=== PATIENT | female | born 1955 | race Two or more races ===

== ENCOUNTER 2024-10-27 12:47 | Inpatient (IN) | payer OTHER, MEDICAID ==
[~2024-10-27] VITALS: Ht 154.9 cm; Wt 85.6 kg
[~2024-10-27 12:47] MED LIST: METH4PAK PO
--- NOTE | 2024-10-27 13:42 | ED.PDOC ---
Musculoskeletal HPI Comments HPI: Poor Historian. 69-year-old female presents to emergency department for evaluation of left lower extremity discomfort after wearing the compression stockings for the last few days. Patient is postoperative day three of right knee replacement however her complaint today is in the contralateral extremity. Patient has no complaints as far as her right lower extremity where the surgery was. Patient states that the compression stocking was causing her discomfort and she took it off prior to arrival. Past Medical History: Past Surgical History: REVIEW OF SYSTEMS: CONSTITUTIONAL: Denies acute: fever, diaphoresis, chills, generalized weakness. HEAD: Denies acute: headache, photophobia Eyes: Denies acute: Double vision, vision loss, eye pain, eye discharge. EARS: Denies acute: tinnitus, hearing loss, ear discharge, ear pain, THROAT: Denies acute: sore throat, swelling, difficulty swallowing , pain with swallowing, change in voice. NECK: Denies acute: neck pain, neck swelling, stiff neck. HEART: Denies acute : chest pain, palpitations, LUNGS: Denies acute: SOB, wheezing, cough, hemoptysis ABDOMEN: Denies acute: abdominal pain, Nausea, Vomiting, diarrhea, melena , hematemesis, hematochezia SKIN: Denies acute: rash, redness, lesions, itchiness. EXTREMITIES: Denies acute: calf pain, numbness, tingling, weakness, Denies acute: Low back pain. Neuro: Denies acute: focal neurological deficit, motor or sensory focal neurological de ficit, tremors, seizure like activity, confusion, dizziness, change in mental status, loss of bowel or bladder function, cauda equina like symptoms. : Denies acute: dysuria, hematuria, flank pain, increase in urinary frequency. PSYCH: Denies acute: hallucination, suicidal ideation, homicidal ideation. FEMALE: Denies acute: abnormal vaginal bleeding, foul odor, unusual discharge. PHYSICAL EXAM: General: --no------acute distress, awake and alert. Head: normocephalic, atraumatic. Neck: supple, trachea is midline, no swelling. Throat: Normal phonation. Eyes:, no erythema, no purulent discharge, no proptosis, no icterus. Heart: regular rate, regular rhythm, no significant murmur appreciated. Lungs: no apparent respiratory distress, Able to speak in full sentences. No wheezing, no rhonchi, no crackles. No stridors Clear to auscultation bilaterally. Abdomen: non tender to palpation, non distended, soft, no guarding, no rebound, + bowel sounds. Neuro: Awake, Alert, oriented to name, self, situation, follows commands GCS=15. Speech is normal. Skin: no petechia, no purpura, no cyanosis, non-pale, not jaundice. Evaluation of the affected left lower extremity --trace - Pitting edema no deformity, no focal swelling, no calf TTP. Mild generalized erythema. Makes eye contact. moves all four extremities. Face: no apparent facial droop. ED COURSE: DISCLAIMER: This medical document was created using an electronic medical record system with voice recognition software and computerized dictation system. Although this document has been carefully reviewed, there might still be some phonetic and typographical errors. Occasional wrong-word or "sound-alike" substitutions may have occurred due to the inherent limitations of voice recognition software. These areas are purely typographical due to imperfections of the software programs and do not reflect any compromise in the patient's medical care. Please read the chart carefully and recognize, using context, where these substitutions have occurred. 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 Reported Medications Citalopram Hydrobromide (Citalopram Hydrobromide) 10 Mg Tab, 1 TAB PO DAILY 10/27/24 Lisinopril (Lisinopril) 20 Mg Tab, 1 TAB PO DAILY 10/27/24 Atorvastatin Calcium (ATORVASTATIN CALCIUM) 80 Mg Tab, 1 TAB PO DAILY 10/27/24 Information Source: Patient Location: Left Social History Smoker: Non-Smoker Alcohol: Denies ETOH Use Drugs: Denies Drug Use X-Ray, Labs, Meds, VS Vital Signs Date Time Temp Pulse Resp B/P (MAP) Pulse Ox O2 Delivery O2 Flow Rate FiO2 10/27/24 14:55 86 16 92 Room Air* 0 21 10/27/24 14:54 99.4 86 16 112/70 (84) 92 99.4 10/27/24 14:50 99.2 89 15 104/57 (73) 95 99.2 Lab Test 10/27/24 14:02 Range/Units White Blood Count 12.9 H 4.4-10.8 10^3/uL Red Blood Count 4.52 4.0-5.20 10^6/uL Hemoglobin 12.5 12.2-16.2 g/dL Hematocrit 37.5 36.0-46.0 % Mean Corpuscular Volume 83.0 80.0-100.0 fL Mean Corpuscular Hemoglobin 27.6 L 28.0-32.0 pg Mean Corpuscular Hemoglobin Concent 33.3 32.0-36.0 g/dL Red Cell Distribution Width 13.7 11.8-14.3 % Platelet Count 284 140-450 10^3/uL Mean Platelet Volume 7.8 6.9-10.8 fL Neutrophils (%) (Auto) 85.7 H 37.0-80.0 % Lymphocytes (%) (Auto) 6.3 L 10.0-50.0 % Monocytes (%) (Auto) 7.6 0.0-12.0 % Eosinophils (%) (Auto) 0.3 0.0-7.0 % Basophils (%) (Auto) 0.1 0.0-2.0 % Neutrophils # (Auto) 11.1 H 1.6-8.6 10 ^3/uL Lymphocytes # (Auto) 0.8 0.4-5.4 10 ^3/uL Monocytes # (Auto) 1.0 0-1.3 10 ^3/uL Eosinophils # (Auto) 0 0-0.8 10 ^3/uL Basophils # (Auto) 0 0-0.2 10 ^3/uL Nucleated Red Blood Cells 0.2 % Erythrocyte Sedimentation Rate 67 H 0-20 mm/hr Prothrombin Time 11.1 9.3-11.8 sec Prothrombin Time INR 1.05 0.9-1.15 Activated Partial Thromboplast Time 25.6 24.5-34.5 SEC Sodium Level 138 136-145 mmol/L Potassium Level 4.7 3.5-5.1 mmol/L Chloride Level 101 98-107 mmol/L Carbon Dioxide Level 27 20-31 mmol/L Anion Gap 10 5-15 Blood Urea Nitrogen 19 9-23 mg/dL Creatinine 0.87 0.550-1.02 mg/dL Glomerular Filtration Rate Calc 71 >90 mL/min BUN/Creatinine Ratio 21.8 H 10.0-20.0 Serum Glucose 159 H 74-106 mg/dL Calcium Level 9.6 8.7-10.4 mg/dL Total Bilirubin 0.9 0.2-1.0 mg/dL Aspartate Amino Transferase (AST) 33 13-40 U/L Alanine Aminotransferase (ALT) 25 7-40 U/L Alkaline Phosphatase 52 46-116 U/L C-Reactive Protein High Sensitivity 8.54 H <1.0 mg/dL B-Type Natriuretic Peptide 17.44 0-100 pg/mL Total Protein 7.1 5.7-8.2 g/dL Albumin 4.6 3.2-4.8 g/dL Current Medications Medications (Trade) Dose Ordered Sig/Azalia Route Start Time Stop Time Status Last Admin Enoxaparin Sodium (Lovenox) 80 mg STAT ONCE SC 10/27/24 15:00 10/27/24 15:10 DC 10/27/24 15:24 [place] [id number] Ph: [phone] DIAGNOSTIC IMAGING Diagnostic Imaging Report : [id number] Signed PATIENT: ZEE ORDOÑEZ ACCT: [id number] UNIT: [id number] : 1955 LOC: ER ROOM / BED: / AGE / SEX: 69 / F ADM STATUS: REG ER SERVICE 1341 ORDERING PHYSICIAN: SHEREEN WINSLOW DO PROCEDURE(s): LLDVT - LT Lower DVT REASON: pain ORDER NUMBER(s): [id number], ACCESSION NUMBER(s): [id number] Clinical History: pain Comparison: None Technique: Duplex Doppler evaluation of the deep venous system of the left lower extremity from the common femoral vein to the popliteal vein including color Doppler and spectral/pulsed waveform analysis was performed. Findings: The common femoral vein demonstrates incomplete compressibility. There is compressibility/patency of the great saphenous vein at the proximal thigh. The femoral vein demonstrates incomplete compressibility. The deep femoral vein demonstrates incomplete compressibility.. The popliteal vein demonstrates incomplete compressibility. There is incomplete l compressibility at the tibioperoneal trunk. Impression: Extensive occlusive deep venous thrombosis extending from the left common femoral vein to the left posterior tibial vein. Critical Result: DVT Findings discussed with Dr. Winslow, at 10/27/2024 02:36 PM, and acknowledged receipt and understanding of the findings. ATED BY: SHAYAN ALMONTE MD DICTATED DATE/TIME: 10/27/24 1439 SIGNED BY: SHAYAN ALMONTE MD SIGNED DATE/TIME: 10/27/24 1439 CC: Departure 1 Departure Time of Disposition: 14:25 Impression: Primary Impression: DVT (deep venous thrombosis) Disposition: ADMITTED INPATIENT Admit to: [facility] Condition: Guarded Discharged With: Self I personally scribed for SHEREEN WINSLOW DO ([email or web address]) on 10/27/24 at 16:56. Electronically submitted by Erik Aragon ([email or web address]). I personally scribed for SHEREEN WINSLOW DO ([email or web address]) on 10/27/24 at 18:19. Electronically submitted by Deandra Grove ([facility]). SHEREEN WINSLOW DO Oct 27, 2024 13:42
[2024-10-27 14:39] LABS: Hematocrit 37.5 % (36.0-46.0); Hemoglobin 12.5 g/dL (12.2-16.2); Mean Corpuscular Hemoglobin 27.6 pg (28.0-32.0); Mean Corpuscular Volume 83.0 fL (80.0-100.0); Nucleated Red Blood Cells % 0.2 %
--- NOTE | 2024-10-27 14:40 | DVH ---
Clinical History: pain Comparison: None Technique: Duplex Doppler evaluation of the deep venous system of the left lower extremity from the common femor al vein to the popliteal vein including color Doppler and spectral/pulsed waveform analysis was perfo rmed. Findings: The common femoral vein demonstrates incomplete compressibility. There is compressibility/patency of the great saphenous vein at the proximal thigh. The femoral vein demonstrates incomplete compressibility. The deep femoral vein demonstrates incomplete compressibility.. The popliteal vein demonstrates incomplete compressibility. There is incomplete l compressibility at the tibioperoneal trunk. Impression: Extensive occlusive deep venous thrombosis extending from the left common femoral vein to the left po sterior tibial vein. Critical Result: DVT Findings discussed with Dr. Michelle, at 10/27/2024 02:36 PM, and acknowledged receipt and understanding of the findings.
[2024-10-27 14:54] LABS: Alanine Aminotransferase 25 U/L (7-40); Albumin 4.6 g/dL (3.2-4.8); Alkaline Phosphatase 52 U/L (46-116); Anion Gap 10 (5-15); BUN/Creatinine Ratio 21.8 (10.0-20.0); Bilirubin, Total 0.9 mg/dL (0.2-1.0); Blood Urea Nitrogen 19 mg/dL (9-23); Calcium 9.6 mg/dL (8.7-10.4); Carbon Dioxide 27 mmol/L (20-31); Chloride 101 mmol/L (98-107); Potassium 4.7 mmol/L (3.5-5.1); Sodium 138 mmol/L (136-145); Total Protein 7.1 g/dL (5.7-8.2)
[2024-10-27 14:55] VITALS: PULSE 86; RESP 16; O2SAT 92
[2024-10-27 14:55] LABS: Glucose 159 mg/dL (74-106)
[2024-10-27 15:11] LABS: INR 1.05 (0.9-1.15); Partial Thromboplastin Time 25.6 SEC (24.5-34.5); Prothrombin Time 11.1 sec (9.3-11.8)
[2024-10-27] MEDS: ENOXAPARIN SOD 100 MG/1 ML SYRINGE SC ONE (15:24)
[2024-10-27] MEDS ORDERED: ONDANSETRON HCL 4 MG/2 ML VIAL IV PRN (16:45)
[2024-10-27] MEDS ORDERED: DEXTROSE (50%) 50ML SYRG IV PRN (16:45)
[2024-10-27] MEDS ORDERED: ALBUTEROL SULF 2.5 MG/0.5ML(0.5%) NEB SOLN NEB PRN (16:45)
[2024-10-27] MEDS ORDERED: ACETAMINOPHEN 325 MG TAB PO PRN (16:45)
[2024-10-27] MEDS ORDERED: NITROGLYCERIN 0.4 MG SL TAB SL PRN (16:45)
[2024-10-27] MEDS ORDERED: MORPHINE SULFATE INJ 2 MG/ml SYRG IV PRN ×2 (16:45)
[2024-10-27] MEDS ORDERED: IPRATROPIUM BROM 0.5 MG/2.5ML INH SOL NEB PRN (16:45)
[2024-10-27] MEDS ORDERED: LISI20TA56 PO (16:46)
[2024-10-27] MEDS ORDERED: CITA10TA5 PO (16:46)
[2024-10-27] MEDS ORDERED: ATOR-47 PO (16:46)
--- NOTE | 2024-10-27 16:49 | DVHHP2 ---
History of Present Illness Reason for Visit: Left lower extremity discomfort History of Present Illness Patricia Cross is a 69-year-old female with past medical history of right knee replacement, hypertension, asthma, and hysterectomy presents to the ED with left lower extremity discomfort. Patient currently reports that there was no pain. She does report that she had a right knee replacement over at [facility] 4 days ago and still has the SONAR TECHNICIAN pump intact. Her right lower extremity is also wrapped with an Xavier wrap. Patient reports that she is compliant with her medications. Patient denies any chest pain, shortness of breath, fever, chills, lightheadedness, weakness, dizziness, urinary symptoms, abdominal pain, nausea, vomiting, diarrhea, recent travels, recent ingestion of spoiled food, or recent sick contacts. Cardiovascular: HTN Pulmonary: Asthma Past Surgical History: Hysterectomy, Other (Right knee replacement) Family History: None Smoke: No ALCOHOL: none Drugs: None Lives: with Family Domestic Violence: Neg Review of Systems Musculoskeletal: leg pain (Left lower extremity) Allergies: Coded Allergies: No Known Drug Allergy (Verified Allergy, Unknown, 07/26/23) Medications Current Medications Medications Dose Ordered Sig/Azalia Route Start Time Stop Time Status Last Admin Dose Admin Enoxaparin Sodium 80 mg Q12HR SC 10/27/24 22:00 UNV Acetaminophen/ Hydrocodone Bitart 1 tab Q4HP PRN PO 10/27/24 16:45 UNV Ondansetron HCl 4 mg Q4HP PRN IV 10/27/24 16:45 UNV Acetaminophen 650 mg Q6HP PRN PO 10/27/24 16:45 UNV Morphine Sulfate 2 mg Q4HPRN PRN IV 10/27/24 16:45 UNV Nitroglycerin 0.4 mg Q5MINP PRN SL 10/27/24 16:45 UNV Morphine Sulfate 2 mg Q30M PRN IV 10/27/24 16:45 UNV Exam Vital Signs Vital Signs Date Time Temp Pulse Resp B/P (MAP) Pulse Ox O2 Delivery O2 Flow Rate FiO2 10/27/24 14:55 86 16 92 Room Air* 0 21 10/27/24 14:54 99.4 112/70 (84) 99.4 General Appearance: Alert, Oriented X3, Cooperative, No acute distress HEENT: Atraumatic, PERRLA, EOMI, Mucous membr. moist/pink Respiratory: Clear to auscultation, Normal air movement Cardiovascular: Regular rate, Normal S1, Normal S2, No murmurs Abdominal: Normal bowel sounds, Soft Extremities: No clubbing, No cyanosis Neuro: Normal speech, Sensation intact, Other (Right lower extremity with SONAR TECHNICIAN pump status post right knee replacement 4 days ago) Psych/Mental Status: Mental status NL, Mood NL Labs/Xrays Labs Test 10/27/24 14:02 Range/Units White Blood Count 12.9 H 4.4-10.8 10^3/uL Red Blood Count 4.52 4.0-5.20 10^6/uL Hemoglobin 12.5 12.2-16.2 g/dL Hematocrit 37.5 36.0-46.0 % Mean Corpuscular Volume 83.0 80.0-100.0 fL Mean Corpuscular Hemoglobin 27.6 L 28.0-32.0 pg Mean Corpuscular Hemoglobin Concent 33.3 32.0-36.0 g/dL Red Cell Distribution Width 13.7 11.8-14.3 % Platelet Count 284 140-450 10^3/uL Mean Platelet Volume 7.8 6.9-10.8 fL Neutrophils (%) (Auto) 85.7 H 37.0-80.0 % Lymphocytes (%) (Auto) 6.3 L 10.0-50.0 % Monocytes (%) (Auto) 7.6 0.0-12.0 % Eosinophils (%) (Auto) 0.3 0.0-7.0 % Basophils (%) (Auto) 0.1 0.0-2.0 % Neutrophils # (Auto) 11.1 H 1.6-8.6 10 ^3/uL Lymphocytes # (Auto) 0.8 0.4-5.4 10 ^3/uL Monocytes # (Auto) 1.0 0-1.3 10 ^3/uL Eosinophils # (Auto) 0 0-0.8 10 ^3/uL Basophils # (Auto) 0 0-0.2 10 ^3/uL Nucleated Red Blood Cells 0.2 % Erythrocyte Sedimentation Rate 67 H 0-20 mm/hr Prothrombin Time 11.1 9.3-11.8 sec Prothrombin Time INR 1.05 0.9-1.15 Activated Partial Thromboplast Time 25.6 24.5-34.5 SEC Sodium Level 138 136-145 mmol/L Potassium Level 4.7 3.5-5.1 mmol/L Chloride Level 101 98-107 mmol/L Carbon Dioxide Level 27 20-31 mmol/L Anion Gap 10 5-15 Blood Urea Nitrogen 19 9-23 mg/dL Creatinine 0.87 0.550-1.02 mg/dL Glomerular Filtration Rate Calc 71 >90 mL/min BUN/Creatinine Ratio 21.8 H 10.0-20.0 Serum Glucose 159 H 74-106 mg/dL Calcium Level 9.6 8.7-10.4 mg/dL Total Bilirubin 0.9 0.2-1.0 mg/dL Aspartate Amino Transferase (AST) 33 13-40 U/L Alanine Aminotransferase (ALT) 25 7-40 U/L Alkaline Phosphatase 52 46-116 U/L C-Reactive Protein High Sensitivity 8.54 H <1.0 mg/dL B-Type Natriuretic Peptide 17.44 0-100 pg/mL Total Protein 7.1 5.7-8.2 g/dL Albumin 4.6 3.2-4.8 g/dL Clinical History: pain Comparison: None Technique: Duplex Doppler evaluation of the deep venous system of the left lower extremity from the common femoral vein to the popliteal vein including color Doppler and spectral/pulsed waveform analysis was performed. Findings: The common femoral vein demonstrates incomplete compressibility. There is compressibility/patency of the great saphenous vein at the proximal t high. The femoral vein demonstrates incomplete compressibility. The deep femoral vein demonstrates incomplete compressibility.. The popliteal vein demonstrates incomplete compressibility. There is incomplete l compressibility at the tibioperoneal trunk. Impression: Extensive occlusive deep venous thrombosis extending from the left common femoral vein to the left posterior tibial vein. Critical Result: DVT SEPSIS Sepsis Screen Date sepsis recognized/suspect: Oct 27, 2024 Time Sepsis recognized/suspect: 1452 Recent Procedure: Yes (RIGHT KNEE SURGERY X 3 DAYS AGO ) On Antibiotic Therapy: No Respiratory Rate >20: No Heart Rate >90: No Temp<36 C (96.8 F) or >38.3 C: No SBP <90 or MAP <65 mmHG: No New Acute Mental Status Change: No Is the patient on CPAP, BIPAP,: No Physician Orders House Piping Inspector (10/27/24 ) Lt Lower Dvt (10/27/24 13:41) * Radiologist Consult (10/27/24 14:52) Enoxaparin Sodium (Lovenox) (10/27/24 22:00) Admit (10/27/24 16:32) Allergies (10/27/24 16:32) Code Status (10/27/24 16:32) Hydrocodone-Acet 5/325mg Tab ([place] 32 (10/27/24 16:45) Ondansetron Hcl (Zofran) (10/27/24 16:45) Complete Blood Count (10/28/24 04:00) Comprehensive Metabolic Panel (10/28/24 04:00) Cardiac Diet-2gna,Lofat,Lochol (10/27/24 Dinner) Acetaminophen Tablet (Tylenol Tablet) (10/27/24 16:45) Morphine Sulfate Injection (10/27/24 16:45) Nitroglycerin Sublingual (Ntrostat Subli (10/27/24 16:45) Morphine Sulfate Injection (10/27/24 16:45) Stat Ekg For Chest Pain (10/27/24 16:32) Notify Md Of Changes From Base (10/27/24 16:32) Director Of Vendor Management For 24 Hours (10/27/24 16:32) Emergency Dysrhythmia Protocol (10/27/24 16:32) Rhythm Strips Once Every Shift (10/27/24 16:32) Oxygen By Nasal Cannula (10/27/24 16:32) Glucose Blood (Accu-Chek Comfort Curve T (10/27/24 17:00) Mild Sliding Scale (10/27/24 17:00) Dextrose 50% Syringe (10/27/24 16:45) Ceftriaxone Ivpb Rocephin (10/27/24 16:45) Vital Signs Date Time Temp Pulse Resp B/P (MAP) Pulse Ox O2 Delivery O2 Flow Rate FiO2 10/27/24 14:55 86 16 92 Room Air* 0 21 10/27/24 14:54 99.4 86 16 112/70 (84) 92 99.4 10/27/24 14:50 99.2 89 15 104/57 (73) 95 99.2 Laboratory Tests Test 10/27/24 14:02 White Blood Count 12.9 10^3/uL (4.4-10.8) H Medications Medications Dose Ordered Sig/Azalia Route Start Time Stop Time Status Last Admin Dose Admin Enoxaparin Sodium 80 mg STAT ONCE SC 10/27/24 15:00 10/27/24 15:10 DC 10/27/24 15:24 80 MG Assessment/Plan Assessment/Plan Assessment Left lower extremity discomfort likely due to extensive occlusive deep venous thrombosis extending from the left common femoral vein to the left posterior tibial vein Patient has SONAR TECHNICIAN pump and a right lower extremity status post knee replacement 4 days ago at [facility] Leukocytosis unclear etiology Elevated CRP Hyperglycemia History of hypertension History of asthma History of hysterectomy Plan Admit to med surge Therapeutic Lovenox IV antibiotics-ceftriaxone Hemoglobin A1c ISS and Accu-Cheks Antiemetics Pain management Duo nebs Diet Home medications reconciled DVT prophylaxis-Lovenox PUD prophylaxis-PPIs Discussed plan of care with patient [place] [id number] Preventive counseling healthy eating habits, physical activity, and regular checkups Plan discussed with: Patient My Orders Orders - MAURICIO DAVILA WATCH PARTS INSPECTOR Procedure Category Date Status Time Enoxaparin Sodium PHA 10/27/24 Logged (Lovenox) 22:00 Admit ADMIT 10/27/24 Transmitted 16:32 Allergies [facility] 10/27/24 In Process 16:32 Code Status CODE 10/27/24 Transmitted 16:32 Hydrocodone-Acet PHA 10/27/24 Logged 5/325mg Tab ([place] 16:45 Ondansetron Hcl PHA 10/27/24 Logged (Zofran) 16:45 Complete Blood Count LAB 10/28/24 Verified 04:00 Comprehensive LAB 10/28/24 Verified Metabolic Panel 04:00 Cardiac DIET 10/27/24 Transmitted Diet-2gna,Lofat,Lochol Dinner Acetaminophen Tablet PHA 10/27/24 Logged (Tylenol Tablet) 16:45 Morphine Sulfate PHA 10/27/24 Logged Injection 16:45 Nitroglycerin PHA 10/27/24 Logged Sublingual (Ntrostat 16:45 Morphine Sulfate PHA 10/27/24 Logged Injection 16:45 Stat Ekg For Chest [facility] 10/27/24 In Process Pain 16:32 Notify Of Changes [facility] 10/27/24 In Process From Base 16:32 Director Of Vendor Management For [facility] 10/27/24 In Process 24 Hours 16:32 Emergency Dysrhythmia [facility] 10/27/24 In Process Protocol 16:32 Rhythm Strips Once [facility] 10/27/24 In Process Every Shift 16:32 Oxygen By Nasal RT 10/27/24 Transmitted Cannula 16:32 Glucose Blood PHA 10/27/24 Verified (Accu-Chek Comfort 17:00 Mild Sliding Scale PHA 10/27/24 Verified 17:00 Dextrose 50% Syringe PHA 10/27/24 Verified 16:45 Ceftriaxone Ivpb PHA 10/27/24 Verified Rocephin 16:45 Date of Service: Oct 27, 2024 Billing Provider: MAURICIO DAVILA Common Visit Codes: [id number]-[id number] INP/OBS CARE (HIGH) Secondary Visit Codes: [id number] COUNSELING IND MAURICIO DAVILA Oct 27, 2024 16:49
[2024-10-27 16:51] VITALS: BP 112/70; PULSE 86; RESP 16; TEMP 99.4; O2SAT 92
[2024-10-27] MEDS: ACCU-CHEK COMFORT CURVE STRIP VI SCH (17:23)
[2024-10-27] MEDS: PANTOPRAZOLE 40 MG/10 ML VIAL INJ IV SCH (17:29)
[2024-10-27] MEDS: cefTRIAXone 1GM/50ML D5W 50 ML IV SCH (17:29)
[2024-10-27] MEDS: InsuLIN REG 1unit/0.01ml Soln (100units/ml) SC SCH (17:30)
[2024-10-27] MEDS: IOHEXOL 350 MG/ML 100ML IJ ONE ×2 (19:19→21:05)
[2024-10-27 21:09] VITALS: PULSE 100; RESP 14; O2SAT 96
[2024-10-27] MEDS: ENOXAPARIN SOD 80 MG/0.8ML SYRINGE SC SCH (21:50)
[2024-10-27 23:52] VITALS: BP 100/65; PULSE 66; RESP 18; TEMP 99.2; O2SAT 94; O2SAT 96
[2024-10-28] VITALS (8 sets, daily range): BP systolic 100–116; BP diastolic 59–71; PULSE 65–78; RESP 17–19; TEMP 98.3–99.2; O2SAT 92–96
[2024-10-28] MEDS: HYDROcodone-ACET 5/325MG TAB PO PRN (00:49)
--- NOTE | 2024-10-28 01:02 | DVH ---
Examination: CTACH CLINICAL INDICATION: R/O PE COMPARISON: None. CONTRAST USED: Intravenous. TECHNIQUE: Technique for this CT scan was done using principles of ALARA (As Low As Reasonably Achie vable). Multiplanar reconstructions were obtained. CT pulmonary angiogram has been performed by obtaining 5 mm axial sections at 1 mm collimation after intravenous injection of non-ionic contrast. Retrospective 3D reconstruction in MIP and MPR format winter s been performed. OBSERVATIONS: The right and left main pulmonary arteries are normal in origin, course and caliber. Both these vesse ls show good contrast opacification and measure approximately 2 cm in diameter each. The visualized descending and interlobar pulmonary arteries show normal contrast opacification. There is no obvious intraluminal filling defect observed. The trachea and the mainstem bronchi appear normal. No mediastinal lymph nodes seen. Both the lungs reveal no focal parenchymal abnormality and show normal aeration pattern. Borderline cardiomegaly is noted. Atherosclerotic calcification is seen in the aorta and the coronary vessels. No pericardial effusion. The pleural spaces are clear. Bony thorax is normal. IMPRESSION: No evidence of pulmonary thromboembolism is noted. Electronically Signed 10/28/2024 01:00 Wesley Dubose
[2024-10-28] MEDS ORDERED: GABA-1308 PO (01:58)
[2024-10-28] MEDS ORDERED: ZOFR4T PO (01:58)
[2024-10-28] MEDS ORDERED: ASPI-543 PO (01:58)
[2024-10-28] MEDS ORDERED: DOCU-94 PO (01:58)
[2024-10-28] MEDS ORDERED: CEPH500C PO (01:58)
[2024-10-28] MEDS ORDERED: PERCOT PO (01:58)
[2024-10-28] MEDS ORDERED: MECL-90 PO (02:10)
[2024-10-28 07:46] LABS: Hematocrit 32.2 % (36.0-46.0); Hemoglobin 11.0 g/dL (12.2-16.2); Mean Corpuscular Hemoglobin 28.2 pg (28.0-32.0); Mean Corpuscular Volume 82.6 fL (80.0-100.0); Nucleated Red Blood Cells % 0.0 %
[2024-10-28 08:19] LABS: Alanine Aminotransferase 22 U/L (7-40); Albumin 4.2 g/dL (3.2-4.8); Alkaline Phosphatase 47 U/L (46-116); Anion Gap 9 (5-15); BUN/Creatinine Ratio 27.4 (10.0-20.0); Bilirubin, Total 1.1 mg/dL (0.2-1.0); Blood Urea Nitrogen 17 mg/dL (9-23); Calcium 9.5 mg/dL (8.7-10.4); Carbon Dioxide 28 mmol/L (20-31); Chloride 101 mmol/L (98-107); Glucose 93 mg/dL (74-106); Sodium 138 mmol/L (136-145); Total Protein 6.9 g/dL (5.7-8.2)
[2024-10-28 08:24] LABS: Potassium 3.1 mmol/L (3.5-5.1)
[2024-10-28] MEDS: CITALOPRAM HYDROBR 20 MG TAB PO SCH (09:39)
[2024-10-28] MEDS: cefTRIAXone 1GM/50ML D5W 50 ML IV SCH (09:39)
[2024-10-28] MEDS: ATORVASTATIN 20 MG TAB PO SCH (09:39)
[2024-10-28] MEDS: LISINOPRIL 20 MG TAB PO SCH (09:40)
--- NOTE | 2024-10-28 15:12 | DVHPNRES ---
Progress Note Date Seen: Oct 28, 2024 Resident Creating Document: YSABEL CASTRO RESIDENT Medical Necessity Reason Pt with a Central, PICC or Fol: No Subjective Review of Systems 69-year-old female with past medical history of right knee replacement, hypertension, asthma, and hysterectomy presents to the ED with left lower extremity discomfort. Patient currently reports that there was no pain. She does report that she had a right knee replacement over at [facility] 4 days ago and still has the DIETETIC INTERN pump intact. Patient denies any chest pain, shortness of breath, fever, chills, lightheadedness, weakness, dizziness, urinary symptoms, abdominal pain, nausea, vomiting, diarrhea, recent travels. Objective vital signs Vital Sign Date Time Temp Pulse Resp B/P (MAP) Pulse Ox O2 Delivery O2 Flow Rate FiO2 10/28/24 12:59 98.4 65 19 116/65 (82) 92 98.4 10/28/24 08:00 Room Air* 0 21 Total Intake and Output 10/27/24 10/27/24 10/28/24 15:00 23:00 07:00 Intake Total 300 ml Balance 300 ml medications Current Medications Medications Dose Ordered Sig/Azalia Route Start Time Stop Time Status Last Admin Dose Admin Enoxaparin Sodium 80 mg Q12HR SC 10/27/24 22:00 10/28/24 09:40 80 MG Acetaminophen/ Hydrocodone Bitart 1 tab Q4HP PRN PO 10/27/24 16:45 10/28/24 09:40 1 TAB Acetaminophen 650 mg Q6HP PRN PO 10/27/24 16:45 Morphine Sulfate 2 mg Q4HPRN PRN IV 10/27/24 16:45 Nitroglycerin 0.4 mg Q5MINP PRN SL 10/27/24 16:45 Diagnostic Test (Pha) 1 strip ACHS 10/27/24 17:00 10/28/24 11:28 1 STRIP Insulin Human Regular ACHS SC 10/27/24 17:00 10/28/24 11:47 2 UNITS Dextrose 50 ml UD PRN IV 10/27/24 16:45 Albuterol 2.5 mg Q4HPRN PRN NEB 10/27/24 16:45 Ipratropium Bazine 0.5 mg Q4HPRN PRN NEB 10/27/24 16:45 Pantoprazole Sodium 40 mg DAILY IV 10/27/24 16:45 10/28/24 09:40 40 MG Lisinopril 20 mg DAILY PO 10/28/24 10:00 Atorvastatin Calcium 80 mg DAILY PO 10/28/24 10:00 10/28/24 09:39 80 MG Citalopram Hydrobromide 10 mg DAILY PO 10/28/24 10:00 10/28/24 09:39 10 MG Ceftriaxone Sodium 50 ml @ 100 mls/hr DAILY@09 IV 10/28/24 09:00 10/28/24 09:39 100 MLS/HR Examination GENERAL: Not in acute distress. HEENT: EOMI, Moist mucous membranes. No scleral icterus. No cervical lymphadenopathy. LUNGS: Clear to auscultation bilaterally. No accessory muscle use. CARDIOVASCULAR: Regular rate and rhythm. No murmur. No JVD. ABDOMEN: Soft, nontender and nondistended. No palpable masses. EXTREMITIES: Right lower extremity with DIETETIC INTERN pump status post right knee replacement 4 days ago, left lower extremitie is swollen and tender on thigh. SKIN: No rashes or lesions. Warm. NEUROLOGIC: Alert and oriented X3 laboratory and microbiology Laboratory Tests 10/28/24 05:11 Test 10/28/24 05:11 Range/Units Serum Glucose 93 74-106 mg/dL Problem List/Assessment/Plan Problem List/Assessment/Plan # Deep vein thrombosis (DVT) of left leg, provoked - continue Lovenox 80 mg SC b.i.d. - Continue monitoring for signs of pulmonary embolism # Post-operative right leg pain - Assess current pain management regimen - Consider adjusting analgesic medications as needed for adequate pain control # Hypercholesterolemia - continue atorvastatin - Discuss lifestyle modifications including diet and exercise # asthma without exacerbation - continue inhaler as needed # hypertension - antihypertensive medication as needed - monitor blood pressure # hypokalemia - replenished - monitor morning labs Goal of Care discussed with the pt for 24 minutes: Full Code Plan discussed with Dr. Saleem Plan discussed with: Patient Date of Service: Oct 28, 2024 Billing Provider: MAT SALEEM MD Common Visit Codes: [id number] INP/OBS CARE(HIGH) YSABEL CASTRO RESIDENT Oct 28, 2024 15:12 MAT SALEEM MD Oct 29, 2024 16:12
[2024-10-29 01:00] VITALS: BP 108/61; PULSE 69; RESP 17; TEMP 97.5; O2SAT 97
[2024-10-29 05:00] VITALS: BP 128/63; PULSE 62; RESP 17; TEMP 98; O2SAT 95
[2024-10-29 06:15] LABS: Hematocrit 34.2 % (36.0-46.0); Hemoglobin 11.4 g/dL (12.2-16.2); Mean Corpuscular Hemoglobin 27.7 pg (28.0-32.0); Mean Corpuscular Volume 82.9 fL (80.0-100.0); Nucleated Red Blood Cells % 0.0 %
[2024-10-29 06:27] LABS: Anion Gap 8 (5-15); Carbon Dioxide 30 mmol/L (20-31); Chloride 100 mmol/L (98-107); Potassium 3.8 mmol/L (3.5-5.1); Sodium 138 mmol/L (136-145)
[2024-10-29 06:28] LABS: Calcium 9.8 mg/dL (8.7-10.4)
[2024-10-29 06:33] LABS: BUN/Creatinine Ratio 24.6 (10.0-20.0); Blood Urea Nitrogen 15 mg/dL (9-23); Glucose 107 mg/dL (74-106)
[2024-10-29 07:51] VITALS: O2SAT 94
[2024-10-29 09:00] VITALS: BP 114/66; PULSE 62; RESP 16; TEMP 98.1; O2SAT 94
[2024-10-29 12:50] LABS: Urine Protein, UAD Negative (Negative)
[2024-10-29] MEDS ORDERED: APIX5TAB PO (13:06)
[2024-10-29] MEDS ORDERED: POLY335015 PO (13:07)
[2024-10-29 14:18] VITALS: BP 114/66; PULSE 62; RESP 16; TEMP 98.1; O2SAT 94
--- NOTE | 2024-10-29 15:51 | DVHDSRES ---
Discharge Summary Date of Admission Resident Creating Document: SACHA PARSONS RESIDENT Oct 27, 2024 at 16:32 Date of Discharge: Oct 29, 2024 Admitting Diagnosis Surgical wound on the rt knee. Wounds: # Acute deep vein thrombosis (DVT) of left leg, provoked Labs/Diagnostic Data: Laboratory Results Test 10/29/24 12:00 10/29/24 11:26 10/29/24 09:01 10/29/24 04:25 Urine Color Yellow (Yellow) Urine Clarity Clear (Clear) Urine pH 6.5 (5.0-9.0) Urine Specific [place] 1.027 (1.001-1.035) Urine Protein Negative (Negative) Urine Ketones Negative (Negative) Urine Blood 1+ /uL (Negative) Urine Nitrite Negative (Negative) Urine Bilirubin Negative (Negative) Urine Urobilinogen 2 mg/dL (Negative) Urine Leukocyte Esterase Negative /uL (Negative) Urine RBC 6 /hpf (0 - 4) Urine Microscopic WBC 1 /HPF (0-5) Urine Squamous Epithelial Cells Few /hpf (<5) Urine Bacteria None seen /hpf (None Seen) Urine Mucus Few (None Seen) Urine Glucose Normal mg/dL (Normal) POC Glucose 124 mg/dl (70-106) Hemoglobin A1c 6.2 % A1C (<5.7) White Blood Count 9.8 10^3/uL (4.4-10.8) Red Blood Count 4.13 10^6/uL (4.0-5.20) Hemoglobin 11.4 g/dL (12.2-16.2) Hematocrit 34.2 % (36.0-46.0) Mean Corpuscular Volume 82.9 fL (80.0-100.0) Mean Corpuscular Hemoglobin 27.7 pg (28.0-32.0) Mean Corpuscular Hemoglobin Concent 33.4 g/dL (32.0-36.0) Red Cell Distribution Width 14.0 % (11.8-14.3) Platelet Count 291 10^3/uL (140-450) Mean Platelet Volume 7.9 fL (6.9-10.8) Neutrophils (%) (Auto) 56.0 % (37.0-80.0) Lymphocytes (%) (Auto) 28.1 % (10.0-50.0) Monocytes (%) (Auto) 12.0 % (0.0-12.0) Eosinophils (%) (Auto) 3.4 % (0.0-7.0) Basophils (%) (Auto) 0.5 % (0.0-2.0) Neutrophils # (Auto) 5.5 10 ^3/uL (1.6-8.6) Lymphocytes # (Auto) 2.8 10 ^3/uL (0.4-5.4) Monocytes # (Auto) 1.2 10 ^3/uL (0-1.3) Eosinophils # (Auto) 0.3 10 ^3/uL (0-0.8) Basophils # (Auto) 0.1 10 ^3/uL (0-0.2) Nucleated Red Blood Cells 0.0 % Sodium Level 138 mmol/L (136-145) Potassium Level 3.8 mmol/L (3.5-5.1) Chloride Level 100 mmol/L (98-107) Carbon Dioxide Level 30 mmol/L (20-31) Anion Gap 8 (5-15) Blood Urea Nitrogen 15 mg/dL (9-23) Creatinine 0.61 mg/dL (0.550-1.02) Glomerular Filtration Rate Calc 96 mL/min (>90) BUN/Creatinine Ratio 24.6 (10.0-20.0) Serum Glucose 107 mg/dL (74-106) Calcium Level 9.8 mg/dL (8.7-10.4) Test 10/28/24 05:11 10/27/24 14:02 Total Bilirubin 1.1 mg/dL (0.2-1.0) Aspartate Amino Transferase (AST) 22 U/L (13-40) Alanine Aminotransferase (ALT) 22 U/L (7-40) Alkaline Phosphatase 47 U/L (46-116) Total Protein 6.9 g/dL (5.7-8.2) Albumin 4.2 g/dL (3.2-4.8) Erythrocyte Sedimentation Rate 67 mm/hr (0-20) Prothrombin Time 11.1 sec (9.3-11.8) Prothrombin Time INR 1.05 (0.9-1.15) Activated Partial Thromboplast Time 25.6 SEC (24.5-34.5) C-Reactive Protein High Sensitivity 8.54 mg/dL (<1.0) B-Type Natriuretic Peptide 17.44 pg/mL (0-100) Other Laboratory Tests 10/29/24 04:25 Brief Hx & Hospital Course: 69-year-old female with past medical history of right knee replacement, hypertension, asthma, and hysterectomy presents to the ED with left lower extremity discomfort. Patient currently reports that there was no pain. She does report that she had a right knee replacement over at [facility] 4 days ago and still has the DESKTOP SUPPORT CONSULTANT pump intact. Patient denies any chest pain, shortness of breath, fever, chills, lightheadedness, weakness, dizziness, urinary symptoms, abdominal pain, nausea, vomiting, diarrhea, recent travels. Hospital course: Patient was initially presented with left leg pain and swelling, status post right knee replacement 4 days ago. Venous scan of the lower extremity showed Extensive occlusive deep venous thrombosis extending from the left common femoral vein to the left posterior tibial vein. CT angiography ruled out the possibility of PE . The patient was treated with initially Lovenox SC 80 mg b.i.d. and later switched to Eliquis. Pain was controlled with DESKTOP SUPPORT CONSULTANT pump. The patient is Scottish-speaking and extensive discussion with the help of Scottish speaker RN with the patient regarding possible cause of venous thrombosis and also explained for continuation of anticoagulant for at least six-month. Patient is being discharged to home with Eliquis 10 mg b.i.d. for 7 days followed by 5 mg b.i.d. for six-month and advised to resume home medications. Patient was also advised to follow up with PCP in 1 week and Orthopedics in 1-2 weeks. Physical exam: GENERAL: Not in acute distress. HEENT: EOMI, Moist mucous membranes. No scleral icterus. No cervical lymphadenopathy. LUNGS: Clear to auscultation bilaterally. No accessory muscle use. CARDIOVASCULAR: Regular rate and rhythm. No murmur. No JVD. ABDOMEN: Soft, nontender and nondistended. No palpable masses. EXTREMITIES: Right lower extremity with DESKTOP SUPPORT CONSULTANT pump status post right knee replacement 4 days ago, left lower extremitie is swollen and tender on thigh. SKIN: No rashes or lesions. Warm. NEUROLOGIC: Alert and oriented X3 Consults/Reason for consult No consultation was done Operations or Procedures Duplex Doppler evaluation of the deep venous system of the left lower extremity from the common femoral vein to the popliteal vein including color Doppler and spectral/pulsed waveform analysis was performed. Findings: The common femoral vein demonstrates incomplete compressibility. There is compressibility/patency of the great saphenous vein at the proximal thigh. The femoral vein demonstrates incomplete compressibility. The deep femoral vein demonstrates incomplete compressibility.. The popliteal vein demonstrates incomplete compressibility. There is incomplete l compressibility at the tibioperoneal trunk. Impression: Extensive occlusive deep venous thrombosis extending from the left common femoral vein to the left posterior tibial vein. Condition at Discharge: Guarded Final Diagnosis/Problems List # Acute deep vein thrombosis (DVT) of left leg, provoked # S/P right knee arthroplasty # Hypercholesterolemia # Bronchial asthma without exacerbation # Hypertensive heart disease # Hypokalemia resolved Discharge Disposition: Home Discharge Instruct/Medications Diet: Cardiac 2g Na,low cholest Activity: No Restrictions, As Tolerated Follow Up/Referral: Follow up with DC clinic in 1 week. Follow up with Orthopedics in 1 to 2 weeks. Medications: As per EMR Scheduled Apixaban Base (Eliquis), 5 MG PO BID Apixaban Base (Eliquis), 10 MG PO BID Apixaban Base (Eliquis), 5 MG PO BID Apixaban Base (Eliquis), 10 MG PO BID Aspirin (Aspir-Low), 81 MG PO DAILY, (Reported) Atorvastatin Calcium (Atorvastatin Calcium), 1 TAB PO DAILY, (Reported) Citalopram Hydrobromide (Citalopram Hydrobromide), 1 TAB PO DAILY, (Reported) Docusate Sodium (Colace), 1 CAP PO BID, (Reported) Gabapentin (Gabapentin), 100 MG PO TID, (Reported) Lisinopril (Lisinopril), 1 TAB PO DAILY, (Reported) Meclizine Hcl (Meclizine Hcl), 25 MG PO DAILY, (Reported) Oxycodone W/ Acetaminophen (Percocet 5/325MG), 1 TAB PO QID, (Reported) Polyethylene Glycol 3350 (Miralax), 17 GM PO DAILY Discontinued Medications Cephalexin Monohydrate (Cephalexin), 500 MG PO Q6HR, (Reported) Ondansetron Odt 4MG Tab (Zofran Po), 4 MG PO TID, (Reported) Discharge Statement: "Patient was advised to return to the ER or call 911 if any headaches, dizziness, shortness of breath, chest pain, abdominal pain, bleeding, fevers, or worsening of medical condition. Patient was counseled about treatment plan, medications, possible side effects, patientverbalized understanding. All questions were answered to the best of my ability. This discharge took greater then 30 minutes in planning, reviewing documentation, counseling the patient, and discussing with other team members." ASSESSMENT ASSESSMENT Assessment Acute provoked DVT of left lower leg. Date of Service: Oct 29, 2024 Billing Provider: MAT SALEEM MD Common Visit Codes: 53679-YYI/[id number] DISCH DAY >30min SACHA PARSONS RESIDENT Oct 29, 2024 15:51 MAT SALEEM MD Oct 31, 2024 13:45
== END 2024-10-29 15:25 | disposition home or self-care (01) | DRG 301 ==
LOC: ER 12:47 → OVERFLOW 16:32 → WEST WING 23:37
DX: I82.412 Acute embolism and thrombosis of left femoral vein (principal); I82.442 Acute embolism and thrombosis of left tibial vein; D72.829 Elevated white blood cell count, unspecified; J45.909 Unspecified asthma, uncomplicated; E87.6 Hypokalemia; E78.00 Pure hypercholesterolemia, unspecified; I11.9 Hypertensive heart disease without heart failure; Z96.651 Presence of right artificial knee joint; Z90.710 Acquired absence of both cervix and uterus; Z79.899 Other long term (current) drug therapy
CPT/HCPCS: 36415; 71275; 80048; 80053; 81001; 82962; 83036; 83880; 85025; 85610; 85652; 85730; 86141; 93971; 96365; G0378; J1815; J2470

== ENCOUNTER 2024-12-13 12:07 | Inpatient (IN) | payer OTHER, MEDICAID ==
[~2024-12-13] VITALS: Ht 154.9 cm; Wt 74.2 kg
[~2024-12-13 12:07] MED LIST changes: +APIX5TAB PO; +ASPI-543 PO; +ATOR-47 PO; +CITA10TA5 PO; +DOCU-94 PO; +GABA-1308 PO; +LISI20TA56 PO; +MECL-90 PO; -METH4PAK PO; +PERCOT PO; +POLY335015 PO
--- NOTE | 2024-12-13 12:43 | ED.PDOC ---
Musculoskeletal HPI Comments This is a 69 year old female presenting to the ED with chief complaint of left leg swelling. Patient reports that she has been experiencing left leg pain and swelling since 10/27/24, however, it has gotten worse since onset. Patient relays that she was previously diagnosed with a DVT in her left leg and has still been on Eliquis and ASA. Patient denies any chest pain, SOB, dizziness, headache, or syncope. Chief Complaint: Lower Extremity Time Seen by MD: 12:40 Primary Care Provider: LAW Reviewed Notes: Nurses Notes, Medications, Allergies Allergies: Coded Allergies: No Known Drug Allergy (Verified Allergy, Unknown, 07/26/23) Home Meds Active Scripts Apixaban Base (ELIQUIS) 5 Mg Tab, 10 MG PO BID for 7 Days, #14 TAB 10MG BID X 7 DAYS THEN 5MG PO BID FOR AT LEAST 6 MONTHS FOR DVT/PE TREATMENT [facility] Apixaban Base (ELIQUIS) 5 Mg Tab, 5 MG PO BID for 90 Days, #180 TAB 3 [facility]ills [facility] 10/29/24 Polyethylene Glycol 3350 (Miralax) 17 Gm Pow, 17 GM PO DAILY for 7 Days, #450 POW Prov[facility] 10/29/24 Apixaban Base (ELIQUIS) 5 Mg Tab, 10 MG PO BID for 7 Days, #14 TAB 10MG BID X 7 DAYS THEN 5MG PO BID FOR AT LEAST 6 MONTHS FOR DVT/PE TREATMENT Prov[facility] 10/29/24 Apixaban Base (ELIQUIS) 5 Mg Tab, 5 MG PO BID for 60 Days, #120 TAB Prov:[facility] 10/29/24 Reported Medications Meclizine Hcl (Meclizine Hcl) 25 Mg Tab, 25 MG PO DAILY for 30 Days, MG 10/28/24 Aspirin (Aspir-Low) 81 Mg Tab, 81 MG PO DAILY for 30 Days, MG 10/28/24 Docusate Sodium (Colace) 100 Mg Cap, 1 CAP PO BID, #30 CAP 10/28/24 Gabapentin (Gabapentin) 100 Mg Cap, 100 MG PO TID 10/28/24 Oxycodone W/ Acetaminophen (Percocet 5/325MG) 1 Tab Tb, 1 TAB PO QID, #120 TAB 10/28/24 Citalopram Hydrobromide (Citalopram Hydrobromide) 10 Mg Tab, 1 TAB PO DAILY 10/27/24 Lisinopril (Lisinopril) 20 Mg Tab, 1 TAB PO DAILY 10/27/24 Atorvastatin Calcium (ATORVASTATIN CALCIUM) 80 Mg Tab, 1 TAB PO DAILY 10/27/24 Information Source: Patient Mode of Arrival: Ambulatory Location: Left Extremity Location: Leg Timing: Months Prehospital treatment: None Severity: Moderate Able to Move Extremity: Yes Bear Weight: Limited Pain: Moderate Mechanism: Spontaneous Circumstances: Spontaneous Onset of Symptoms: Spontaneous Symptoms: Swelling, Pain DVT Risk Factors: DVT Last Tetanus: Unknown Past Medical History Past Medical History (Other): DVT in left leg Surgical History: Denies all surgeries CAPITAL MARKETS SPECIALIST History: Denies all CAPITAL MARKETS SPECIALIST Hx Family History Family History: Reviewed,noncontributory to illness Social History Smoker: Non-Smoker Alcohol: Denies ETOH Use Drugs: Denies Drug Use Lives In: Home Constitutional: denies: chills, diaphoresis, fatigue, fever, malaise, sweats, weakness, others EENTM: denies: blurred vision, double vision, ear bleeding, ear discharge, ear drainage, ear pain, ear ringing, eye pain, eye redness, hearing loss, mouth pain, mouth swelling, nasal discharge, nose bleeding, nose congestion, nose pain, photophobia, tearing, throat pain, throat swelling, voice changes, others Respiratory: denies: cough, hemoptysis, orthopnea, SOB at rest, shortness of breath, SOB with excertion, stridor, wheezing, others Cardiovascular: reports: edema; denies: chest pain, dizzy spells, diaphoresis, Dyspnea on exertion, irregular heart beat, left arm pain, lightheadedness, palpitations, PND, syncope, others Gastrointestinal: denies: abdomen distended, abdominal pain, blood streaked bowels, constipated, diarrhea, dysphagia, difficulty swallowing, hematemesis, melena, nausea, poor appetite, poor fluid intake, rectal bleeding, rectal pain, vomiting, others Genitourinary: denies: abnormal vagina bleeding, burning, dyspareunia, dysuria, flank pain, frequency, hematuria, incontinence, pain, , vagina discharge, urgency, others Neurological: denies: dizziness, fainting, headache, left sided numbness, left sided weakness, numbness, paresthesia, pre-existing deficit, right sided numbness, right sided weakness, seizure, speech problems, tingling, tremors, weakness, others Musculoskeletal: reports: others (Lt leg pain); denies: back pain, gout, joint pain, joint swelling, muscle pain, muscle stiffness, neck pain Integumetry: denies: bruises, change in color, change in hair/nails, dryness, laceration, lesions, lumps, rash, wounds, others Allergic/Immunocompromised: denies: Difficulty Healing, Frequent Infections, Hives, Itching, others Hematologic/Lymphatic: denies: anemia, blood clots, easy bleeding, easy bruising, swollen glands, others Endocrine: denies: excessive hunger, excessive sweating, excessive thirst, excessive urination, flushing, intolerance to cold, intolerance to heat, unexplained weight gain, unexplained weight loss, others Psychiatric: denies: anxiety, bipolar disorder, depression, hopeless, panic disorder, schizophrenia, sleepless, suicidal, others All Other Systems: Reviewed and Negative Physical Exam General Appearance: Moderate Distress, Obese HEENT: Normal ENT Inspection, PERRL/EOMI, Pharynx Normal, TMs Normal Neck: Full Range of Motion, Non-Tender, Normal, Normal Inspection Respiratory: Chest Non-Tender, Lungs Clear, No Accessory Muscle Use, No Respiratory Distress, Normal Breath Sounds Cardiovascular: No Edema, No JVD, No Murmur, No Gallop, Normal Peripheral Pulses, Regular Rate/Rhythm Breast Exam: Deferred Gastrointestinal: No Organomegaly, Non Tender, No Pulsatile Mass, Normal Bowel Sounds, Soft Genitalia: Deferred Pelvic: Deferred Rectal: Deferred Extremities: Decreased range of motion, Inflammation, Leg edema, No calf tenderness, Normal capillary refill, Normal inspection, Normal range of motion, Non-tender, No pedal edema, Swelling, Tender Neurologic: Alert, product safety technician II-XII nml as Tested, No Motor Deficits, Normal Affect, Normal Mood, No Sensory Deficits Cerebellar Function: Normal Reflexes: Normal Skin: Dry, Normal Color, Warm Peripheral Pulses: 1+ carotid (R), 1+ carotid (L) Lymphatic: No Adenopathy Was a procedure done? Was a procedure done?: No Differential Diagnosis EXT Differential Diagnosis: Cellulitis, CHF, Deep Vein Thrombosis X-Ray, Labs, Meds, VS Vital Signs Date Time Temp Pulse Resp B/P (MAP) Pulse Ox O2 Delivery O2 Flow Rate FiO2 12/13/24 12:12 98.0 76 15 146/71 97 98.0 Lab Test 12/13/24 13:41 Range/Units White Blood Count 7.6 4.4-10.8 10^3/uL Red Blood Count 4.27 4.0-5.20 10^6/uL Hemoglobin 11.0 L 12.2-16.2 g/dL Hematocrit 34.0 L 36.0-46.0 % Mean Corpuscular Volume 79.6 L 80.0-100.0 fL Mean Corpuscular Hemoglobin 25.9 L 28.0-32.0 pg Mean Corpuscular Hemoglobin Concent 32.5 32.0-36.0 g/dL Red Cell Distribution Width 15.6 H 11.8-14.3 % Platelet Count 402 140-450 10^3/uL Mean Platelet Volume 7.6 6.9-10.8 fL Neutrophils (%) (Auto) 55.2 37.0-80.0 % Lymphocytes (%) (Auto) 29.7 10.0-50.0 % Monocytes (%) (Auto) 10.0 0.0-12.0 % Eosinophils (%) (Auto) 3.9 0.0-7.0 % Basophils (%) (Auto) 1.2 0.0-2.0 % Neutrophils # (Auto) 4.2 1.6-8.6 10 ^3/uL Lymphocytes # (Auto) 2.3 0.4-5.4 10 ^3/uL Monocytes # (Auto) 0.8 0-1.3 10 ^3/uL Eosinophils # (Auto) 0.3 0-0.8 10 ^3/uL Basophils # (Auto) 0.1 0-0.2 10 ^3/uL Nucleated Red Blood Cells 0.0 % Prothrombin Time 11.5 9.3-11.8 sec Prothrombin Time INR 1.09 0.9-1.15 Activated Partial Thromboplast Time 31.0 24.5-34.5 SEC D-Dimer, Quantitative 6.83 H 0.0-0.49 mg/L FEU Sodium Level 140 136-145 mmol/L Potassium Level 4.1 3.5-5.1 mmol/L Chloride Level 105 98-107 mmol/L Carbon Dioxide Level 27 20-31 mmol/L Anion Gap 8 5-15 Blood Urea Nitrogen 12 9-23 mg/dL Creatinine 0.64 0.550-1.02 mg/dL Glomerular Filtration Rate Calc 94 >90 mL/min BUN/Creatinine Ratio 18.8 10.0-20.0 Serum Glucose 93 74-106 mg/dL Calcium Level 9.4 8.7-10.4 mg/dL Total Bilirubin 0.5 0.2-1.0 mg/dL Aspartate Amino Transferase (AST) 20 13-40 U/L Alanine Aminotransferase (ALT) 13 7-40 U/L Alkaline Phosphatase 75 46-116 U/L Troponin I High Sensitivity < 3 L </=34 ng/L Total Protein 7.8 5.7-8.2 g/dL Albumin 4.4 3.2-4.8 g/dL Current Medications Medications (Trade) Dose Ordered Sig/Azalia Route Start Time Stop Time Status Last Admin Sodium Chloride 1,000 ml @ 150 mls/hr Q6H40M ONCE IV 12/13/24 12:45 12/13/24 19:24 12/13/24 12:45 [place] [address] Ph: [phone] DIAGNOSTIC IMAGING Diagnostic Imaging Report : [id number] Signed PATIENT: ZEE ORDOÑEZ ACCT: [id number] UNIT: [id number] : 1955 LOC: ER ROOM / BED: / AGE / SEX: 69 / F ADM STATUS: REG ER SERVICE 1240 ORDERING PHYSICIAN: GRETA CEDENO MD PROCEDURE(s): LLDVT - LT Lower DVT REASON: Swollen inflamed left leg history of DVT patient on Eliquis ORDER NUMBER(s): [id number], ACCESSION NUMBER(s): [id number] Left lower extremity venous duplex Clinical History: Swollen inflamed left leg history of DVT patient on Eliquis Comparison: US LT LOWER DVT on DOS: 10/27/24 Findings:The common femoral vein demonstrates incomplete compressibility. There is compressibility/patency of the great saphenous vein at the proximal thigh. The femoral vein demonstrates incomplete compressibility. The deep femoral vein demonstrates incomplete compressibility.. The popliteal vein demonstrates incomplete compressibility. There is incomplete l compressibility at the tibioperoneal trunk.Impression:Extensive occlusive deep venous thrombosis extending from the left common femoral vein to the left posterior tibial vein. No interval change. ATED BY: PETER ADLER MD DICTATED DATE/TIME: 12/13/24 1329 SIGNED BY: PETER ADLER MD SIGNED DATE/TIME: 12/13/24 1329 CC: X-Ray, Labs, Meds, VS Comment Course in the emergency department if eventful patient came in because of her left leg being swollen and red and inflamed and very painful Patient has a history of DVT and is on Eliquis at this time her blood pressure is 166/71 The chest x-ray is normal EKG shows normal sinus rhythm Ultrasound of the left leg shows extensive DVT CBC normal CMP negative INR 1.09 D-dimer very elevated at 6.83 Troponin less than three CT angio pending Patient will be admitted for further care Time of 1ST Reevaluation: 13:40 Reevaluation 1ST: Unchanged Patient Education/Counseling: Diagnosis, Treatment Family Education/Counseling: No Family Present Departure 1 Departure Time of Disposition: 15:19 Impression: Primary Impression: Left leg DVT Additional Impressions: D-dimer, elevated Pulmonary embolism Disposition: 50 HOSPICE/HOME Condition: Serious Critical Care Note Critical Care Time?: No Stability Stability form required: Yes Heart Score Heart Score: Heart Score Response (Comments) Value History Slightly Suspicious 0 EKG Normal 0 Age >65 2 Risk Factors 1 or 2 risk factors 1 Troponin Normal limit 0 Total 3 I personally scribed for GRETA CEDENO MD ([email or web address]) on 12/13/24 at 12:43. Electronically submitted by Ramin Titus ([email or web address]). I personally scribed for GRETA CEDENO MD ([email or web address]) on 12/13/24 at 14:10. Electronically submitted by Ramin Titus ([email or web address]). GRETA CEDENO MD Dec 13, 2024 12:43
[2024-12-13] MEDS: SODIUM CHLORIDE 0.9% 1,000 ML IV ONE (12:45)
--- NOTE | 2024-12-13 13:17 | DVH ---
EXAM: XY CHEST TWO VIEWS ROUTINE CLINICAL HISTORY: Shortness of breath COMPARISON: CT CT ANGIO CHEST CONTRAST on DOS: 10/27/24, XY CHEST TWO VIEWS ROUTINE on DOS: 07/26/23 TECHNIQUE: Frontal and lateral view of the chest was obtained FINDINGS: Lines and Tubes: None Lungs: No focal consolidation. Pleura: No effusion. No pneumothorax. Cardiomediastinal contours: Unremarkable Bones: No acute osseous abnormality. IMPRESSION: No acute cardiopulmonary disease.
--- NOTE | 2024-12-13 13:32 | DVH ---
Left lower extremity venous duplex Clinical History: Swollen inflamed left leg history of DVT patient on Eliquis Comparison: US LT LOWER DVT on DOS: 10/27/24 Findings:The common femoral vein demonstrates incomplete compressibility. There is compressibility/pa tency of the great saphenous vein at the proximal thigh. The femoral vein demonstrates incomplete com pressibility. The deep femoral vein demonstrates incomplete compressibility.. The popliteal vein demo nstrates incomplete compressibility. There is incomplete l compressibility at the tibioperoneal trunk .Impression:Extensive occlusive deep venous thrombosis extending from the left common femoral vein to the left posterior tibial vein. No interval change.
[2024-12-13 13:55] LABS: Nucleated Red Blood Cells % 0.0 %
[2024-12-13 13:57] LABS: Hematocrit 34.0 % (36.0-46.0); Hemoglobin 11.0 g/dL (12.2-16.2); Mean Corpuscular Hemoglobin 25.9 pg (28.0-32.0); Mean Corpuscular Volume 79.6 fL (80.0-100.0)
[2024-12-13 14:13] LABS: Alanine Aminotransferase 13 U/L (7-40); Alkaline Phosphatase 75 U/L (46-116); Anion Gap 8 (5-15); BUN/Creatinine Ratio 18.8 (10.0-20.0); Blood Urea Nitrogen 12 mg/dL (9-23); Calcium 9.4 mg/dL (8.7-10.4); Carbon Dioxide 27 mmol/L (20-31); Chloride 105 mmol/L (98-107); Glucose 93 mg/dL (74-106); Potassium 4.1 mmol/L (3.5-5.1); Sodium 140 mmol/L (136-145); Total Protein 7.8 g/dL (5.7-8.2)
[2024-12-13 14:14] LABS: Albumin 4.4 g/dL (3.2-4.8); Bilirubin, Total 0.5 mg/dL (0.2-1.0)
[2024-12-13 14:16] LABS: INR 1.09 (0.9-1.15); Partial Thromboplastin Time 31.0 SEC (24.5-34.5); Prothrombin Time 11.5 sec (9.3-11.8)
[2024-12-13] MEDS: IOHEXOL 350 MG/ML 100ML IJ ONE (14:50)
--- NOTE | 2024-12-13 15:16 | ECG ---
[facility] Test Date: 2024-12-13 Test Time: 15:15:16 Pat Name: ZEE ORDOÑEZ Department: ED Room: 0221 Gender: F Prosthodontist/Educator: telma : 1955 Requested By: GRETA CEDENO Order Number: [id number] Reading MD: Eduardo Arrieta Measurements Intervals [place] Rate: 63 P: 67 WI: 150 QRS: 0 QRSD: 139 T: 67 QT: 422 QTc: 433 Interpretive Statements Sinus rhythm Atrial premature complexes Nonspecific intraventricular conduction delay Electronically Signed On 12-14-2024 17:02:58 PDT by Eduardo Arrieta Please click the below link to view image of tracing.
--- NOTE | 2024-12-13 15:54 | DVH ---
INDICATION: PE TECHNIQUE: Multidetector CTA of the chest was performed of the chest with 100 cc of intravenous contr ast. PULMONARY ANGIOGRAPHY PROTOCOL was utilized using a bolus-tracking technique centered on the gregory n pulmonary artery. Axial, coronal and sagittal multiplanar and MIP reformats were performed. Radiation Dose Information: CT Dose: CTDI volume is 15.3 mGy. Dose-length product is 537.11 mGy*cm Omnipaque 350: 100 mL The dose indicators for CT are the volume Computed Tomography (CT) Dose Index (CTDIvol) and the Dose Length Product (DLP), and are measured in units of mGy and mGy-cm, respectively. These indicators are not patient dose, but values generated from the CT scanner acquisition factors. The report includes radiation exposure data for exposures received during this examination. Findings: Pulmonary artery: Normal caliber of the pulmonary artery. No large central or large segmental pulmo nary embolism. Lower neck: Normal thyroid. Lungs: No focal consolidation, pulmonary mass, or suspicious pulmonary nodule. Heart/Vascular Structures: Normal heart size. Normal caliber and enhancement of the aorta. Lymph Nodes: No adenopathy Pleura: No pleural effusion or significant pneumothorax. Musculoskeletal: No acute osseous abnormality. Dextroscoliosis thoracolumbar spine, apex T12-L1 Upper abdomen: Limited portions of the upper abdomen are unremarkable. Cholelithiasis IMPRESSION: 1. No pulmonary embolism. No findings of pulmonary artery hypertension 2. No pulmonary nodules or masses.
[2024-12-13] MEDS ORDERED: ONDANSETRON HCL 4 MG/2 ML VIAL IV PRN (19:30)
[2024-12-13] MEDS ORDERED: HEPARIN DRIP/D5W 100UNITS/ML 250 ML IV SCH (20:00)
[2024-12-13] MEDS: HEPARIN SODIUM (PORCINE) 5000 UNITS/ML 1ML VIAL IV ONE (20:00)
[2024-12-13 20:31] LABS: Hematocrit 35.2 % (36.0-46.0); Hemoglobin 11.6 g/dL (12.2-16.2); Mean Corpuscular Hemoglobin 26.1 pg (28.0-32.0); Mean Corpuscular Volume 79.4 fL (80.0-100.0); Nucleated Red Blood Cells % 0.1 %
[2024-12-13 21:23] LABS: INR 1.08 (0.9-1.15); Partial Thromboplastin Time 31.3 SEC (24.5-34.5); Prothrombin Time 11.4 sec (9.3-11.8)
[2024-12-13] MEDS ORDERED: ENOXAPARIN SOD 80 MG/0.8ML SYRINGE SC SCH (22:00)
--- NOTE | 2024-12-13 22:04 | DVHHP2 ---
History of Present Illness Reason for Visit: Left leg swelling History of Present Illness 69-year-old female presents for evaluation of left lower extremity swelling. Patient reports undergoing a right knee surgery on 10/23/2024. Patient was diagnosed with a DVT on 10/27/24 and placed on Eliquis. She states being compliant with her medication. She states over the past three days her leg has become more swollen and tender. Denies chest pain or shortness for breath. No other acute complaints reported. Past Medical History Dyslipidemia and DVT Past Surgical History Right knee surgery Family History Noncontributory Smoke: No ALCOHOL: none Drugs: None Lives: with Family Review of Systems Review of Systems Review of systems are currently negative otherwise addressed in HPI. Allergies: Coded Allergies: No Known Drug Allergy (Verified Allergy, Unknown, 07/26/23) Medications Current Medications Medications Dose Ordered Sig/Azalia Route Start Time Stop Time Status Last Admin Dose Admin Atorvastatin Calcium 40 mg HS PO 12/13/24 22:00 Acetaminophen/ Hydrocodone Bitart 1 tab Q4HP PRN PO 12/13/24 19:30 Ondansetron HCl 4 mg Q4HP PRN IV 12/13/24 19:30 Acetaminophen 650 mg Q6HP PRN PO 12/13/24 19:30 Heparin Sodium/ Dextrose 250 ml @ 14 mls/hr [id number] IV 12/13/24 20:00 Exam Vital Signs Vital Signs Date Time Temp Pulse Resp B/P (MAP) Pulse Ox O2 Delivery O2 Flow Rate FiO2 12/13/24 19:27 65 16 153/72 (99) 99 12/13/24 16:07 98.6 98.6 Exam Gen: 69-year-old female in mild distress Skin: Warm, dry, normal color and texture, no rash. HEENT: Normocephalic atraumatic, mucous membranes moist and pink. Neck: Cervical and supraclavicular nodes normal without enlargement, trachea is midline, thyroid gland is normal without masses. Pulmonary: Clear to auscultation and percussion bilaterally. Cardiac: Regular rate and rhythm. No murmur Abdomen: Soft, nontender, nondistended, bowel sounds present all 4 quadrants, no guarding, no rigidity, no organomegaly. Extremities: No cyanosis, clubbing, left lower extremity swelling with tenderness Neuro: Cranial nerves II through XII grossly intact, normal affect and speech, no focal motor deficits. Labs/Xrays ORDERING PHYSICIAN: GRETA CEDENO MD PROCEDURE(s): CXR2 - CHEST TWO VIEWS ROUTINE REASON: Shortness of breath ORDER NUMBER(s): [id number], ACCESSION NUMBER(s): [id number] EXAM: XY CHEST TWO VIEWS ROUTINE CLINICAL HISTORY: Shortness of breath COMPARISON: CT CT ANGIO CHEST CONTRAST on DOS: 10/27/24, XY CHEST TWO VIEWS ROUTINE on DOS: 07/26/23 TECHNIQUE: Frontal and lateral view of the chest was obtained FINDINGS: Lines and Tubes: None Lungs: No focal consolidation. Pleura: No effusion. No pneumothorax. Cardiomediastinal contours: Unremarkable Bones: No acute osseous abnormality. IMPRESSION: No acute cardiopulmonary disease. RING PHYSICIAN: GRETA CEDENO MD PROCEDURE(s): LLDVT - LT Lower DVT REASON: Swollen inflamed left leg history of DVT patient on Eliquis ORDER NUMBER(s): [id number], ACCESSION NUMBER(s): [id number] Left lower extremity venous duplex Clinical History: Swollen inflamed left leg history of DVT patient on Eliquis Comparison: US LT LOWER DVT on DOS: 10/27/24 Findings:The common femoral vein demonstrates incomplete compressibility. There is compressibility/patency of the great saphenous vein at the proximal thigh. The femoral vein demonstrates incomplete compressibility. The deep femoral vein demonstrates incomplete compressibility.. The popliteal vein demonstrates incomplete compressibility. There is incomplete l compressibility at the tibioperoneal trunk.Impression:Extensive occlusive deep venous thrombosis extending from the left common femoral vein to the left posterior tibial vein. No interval change. RING PHYSICIAN: GRETA CEDENO MD PROCEDURE(s): CTACH - CT ANGIO CHEST CONTRAST REASON: PE ORDER NUMBER(s): [id number], ACCESSION NUMBER(s): [id number] INDICATION: PE TECHNIQUE: Multidetector CTA of the chest was performed of the chest with 100 cc of intravenous contrast. PULMONARY ANGIOGRAPHY PROTOCOL was utilized using a bolus-tracking technique centered on the main pulmonary artery. Axial, coronal and sagittal multiplanar and MIP reformats were performed. Radiation Dose Information: CT Dose: CTDI volume is 15.3 mGy. Dose-length product is 537.11 mGy*cm Omnipaque 350: 100 mL The dose indicators for CT are the volume Computed Tomography (CT) Dose Index (CTDIvol) and the Dose Length Product (DLP), and are measured in units of mGy and mGy-cm, respectively. These indicators are not patient dose, but values g enerated from the CT scanner acquisition factors. The report includes radiation exposure data for exposures received during this examination. Findings: Pulmonary artery: Normal caliber of the pulmonary artery. No large central or large segmental pulmonary embolism. Lower neck: Normal thyroid. Lungs: No focal consolidation, pulmonary mass, or suspicious pulmonary nodule. Heart/Vascular Structures: Normal heart size. Normal caliber and enhancement of the aorta. Lymph Nodes: No adenopathy Pleura: No pleural effusion or significant pneumothorax. Musculoskeletal: No acute osseous abnormality. Dextroscoliosis thoracolumbar spi ne, apex T12-L1 Upper abdomen: Limited portions of the upper abdomen are unremarkable. Cholelithiasis IMPRESSION: 1. No pulmonary embolism. No findings of pulmonary artery hypertension 2. No pulmonary nodules or masses. Labs Test 12/13/24 20:02 12/13/24 13:41 Range/Units White Blood Count 7.0 4.4-10.8 10^3/uL Red Blood Count 4.43 4.0-5.20 10^6/uL Hemoglobin 11.6 L 12.2-16.2 g/dL Hematocrit 35.2 L 36.0-46.0 % Mean Corpuscular Volume 79.4 L 80.0-100.0 fL Mean Corpuscular Hemoglobin 26.1 L 28.0-32.0 pg Mean Corpuscular Hemoglobin Concent 32.9 32.0-36.0 g/dL Red Cell Distribution Width 16.0 H 11.8-14.3 % Platelet Count 411 140-450 10^3/uL Mean Platelet Volume 7.7 6.9-10.8 fL Neutrophils (%) (Auto) 47.8 37.0-80.0 % Lymphocytes (%) (Auto) 35.7 10.0-50.0 % Monocytes (%) (Auto) 10.5 0.0-12.0 % Eosinophils (%) (Auto) 4.8 0.0-7.0 % Basophils (%) (Auto) 1.2 0.0-2.0 % Neutrophils # (Auto) 3.3 1.6-8.6 10 ^3/uL Lymphocytes # (Auto) 2.5 0.4-5.4 10 ^3/uL Monocytes # (Auto) 0.7 0-1.3 10 ^3/uL Eosinophils # (Auto) 0.3 0-0.8 10 ^3/uL Basophils # (Auto) 0.1 0-0.2 10 ^3/uL Nucleated Red Blood Cells 0.1 % Prothrombin Time 11.4 9.3-11.8 sec Prothrombin Time INR 1.08 0.9-1.15 Activated Partial Thromboplast Time 31.3 24.5-34.5 SEC D-Dimer, Quantitative 6.83 H 0.0-0.49 mg/L FEU Sodium Level 140 136-145 mmol/L Potassium Level 4.1 3.5-5.1 mmol/L Chloride Level 105 98-107 mmol/L Carbon Dioxide Level 27 20-31 mmol/L Anion Gap 8 5-15 Blood Urea Nitrogen 12 9-23 mg/dL Creatinine 0.64 0.550-1.02 mg/dL Glomerular Filtration Rate Calc 94 >90 mL/min BUN/Creatinine Ratio 18.8 10.0-20.0 Serum Glucose 93 74-106 mg/dL Calcium Level 9.4 8.7-10.4 mg/dL Total Bilirubin 0.5 0.2-1.0 mg/dL Aspartate Amino Transferase (AST) 20 13-40 U/L Alanine Aminotransferase (ALT) 13 7-40 U/L Alkaline Phosphatase 75 46-116 U/L Troponin I High Sensitivity < 3 L </=34 ng/L Total Protein 7.8 5.7-8.2 g/dL Albumin 4.4 3.2-4.8 g/dL SEPSIS Sepsis Screen Date sepsis recognized/suspect: Dec 13, 2024 Time Sepsis recognized/suspect: 1214 Recent Procedure: No On Antibiotic Therapy: No Respiratory Rate >20: No Heart Rate >90: No Temp<36 C (96.8 F) or >38.3 C: No SBP <90 or MAP <65 mmHG: No New Acute Mental Status Change: No Is the patient on CPAP, BIPAP,: No Physician Orders Ct Angio Chest Contrast (12/13/24 14:30) Basic Metabolic Panel (12/14/24 04:00) * Radiologist Consult (12/13/24 19:24) Admit (12/13/24 19:24) Hydrocodone-Acet 5/325mg Tab ([place] 5/32 (12/13/24 19:30) Ondansetron Hcl (Zofran) (12/13/24 19:30) Cardiac Diet-2gna,Lofat,Lochol (12/14/24 Breakfast) Condition: Stable (12/13/24 19:24) Acetaminophen Tablet (Tylenol Tablet) (12/13/24 19:30) Bedrest With Bathroom Privileg (12/13/24 19:24) Atorvastatin (Lipitor) (12/13/24 22:00) Platelet Monitoring (12/13/24 19:52) Vte Protocol Initiated (12/13/24 19:52) Heparin Per Standardized Proce (12/13/24 19:52) Discontinue All Im Injections (12/13/24 19:52) Heparin Drip/D5w 100units/Ml (12/13/24 20:00) Vital Signs Date Time Temp Pulse Resp B/P (MAP) Pulse Ox O2 Delivery O2 Flow Rate FiO2 12/13/24 19:27 65 16 153/72 (99) 99 12/13/24 16:07 98.6 72 16 137/72 (93) 99 98.6 12/13/24 15:15 63 Laboratory Tests Test 12/13/24 13:41 12/13/24 20:02 White Blood Count 7.6 10^3/uL (4.4-10.8) 7.0 10^3/uL (4.4-10.8) Medications Medications Dose Ordered Sig/Azalia Route Start Time Stop Time Status Last Admin Dose Admin Sodium Chloride 1,000 ml @ 150 mls/hr [id number] ONCE IV 12/13/24 12:45 12/13/24 19:24 DC 12/13/24 12:45 150 MLS/HR Assessment/Plan Assessment/Plan Assessment Left lower extremity DVT Plan Admit the patient to [facility] to the hospitalist Heparin drip Radiology consult Pain management Continue treatment per orders. Plan discussed with: Patient My Orders Orders - SANJUANITA MARSHALL Procedure Category Date Status Time Basic Metabolic Panel LAB 12/14/24 Verified 04:00 * Radiologist Consult CONS 12/13/24 Transmitted 19:24 Admit ADMIT 12/13/24 Transmitted 19:24 Hydrocodone-Acet PHA 12/13/24 In Process 5/325mg Tab ([place] 19:30 Ondansetron Hcl PHA 12/13/24 In Process (Zofran) 19:30 Cardiac DIET 12/14/24 Transmitted Diet-2gna,Lofat,Lochol Breakfast Condition: Stable SEGUNDO 12/13/24 In Process 19:24 Acetaminophen Tablet PHA 12/13/24 In Process (Tylenol Tablet) 19:30 Bedrest With Bathroom SEGUNDO 12/13/24 In Process Privileg 19:24 Atorvastatin (Lipitor) PHA 12/13/24 In Process 22:00 Platelet Monitoring SEGUNDO 12/13/24 In Process 19:52 Vte Protocol Initiated SEGUNDO 12/13/24 In Process 19:52 Heparin Per SEGUNDO 12/13/24 In Process Standardized Proce 19:52 Discontinue All Im SEGUNDO 12/13/24 In Process Injections 19:52 Heparin Drip/D5w PHA 12/13/24 In Process 100units/Ml 20:00 Date of Service: Dec 13, 2024 Billing Provider: SANJUANITA MARSHALL Common Visit Codes: [id number] INP/OBS CARE (HIGH) SANJUANITA MARSHALL Dec 13, 2024 22:04
[2024-12-13] MEDS: HEPARIN DRIP/D5W 100UNITS/ML 250 ML IV SCH (23:46)
[2024-12-13] MEDS: ATORVASTATIN 20 MG TAB PO SCH (23:50)
[2024-12-13] MEDS: HYDROcodone-ACET 5/325MG TAB PO PRN (23:53)
[2024-12-13 23:56] VITALS: RESP 12; O2SAT 96
[2024-12-14] VITALS (8 sets, daily range): BP systolic 114–134; BP diastolic 66–82; PULSE 60–73; RESP 16–18; TEMP 98–98.3; O2SAT 94–96
[2024-12-14 06:26] LABS: Chloride 106 mmol/L (98-107); Potassium 3.8 mmol/L (3.5-5.1); Sodium 141 mmol/L (136-145)
[2024-12-14 06:27] LABS: Anion Gap 9 (5-15); Calcium 8.9 mg/dL (8.7-10.4); Carbon Dioxide 26 mmol/L (20-31)
[2024-12-14 06:32] LABS: BUN/Creatinine Ratio 13.3 (10.0-20.0); Glucose 89 mg/dL (74-106)
[2024-12-14 06:33] LABS: Blood Urea Nitrogen 8 mg/dL (9-23)
[2024-12-14 06:48] LABS: INR 1.11 (0.9-1.15); Partial Thromboplastin Time 57.2 SEC (24.5-34.5); Prothrombin Time 11.6 sec (9.3-11.8)
[2024-12-14 12:02] LABS: INR 1.09 (0.9-1.15); Partial Thromboplastin Time 59.8 SEC (24.5-34.5); Prothrombin Time 11.5 sec (9.3-11.8)
--- NOTE | 2024-12-14 12:08 | CONS ---
Pharmacy Clinical Information: HEPARIN DRIP, DVT PROTOCOL @1117 APTT 59.8 - NO BOLUS / NO CHANGE NEXT APTT DRAW SCHEDULED @1700 PER RX PROTOCOL CONFIRMED AND READ BACK WITH RN JOHN TERRAZAS [facility] RESIDENT Dec 14, 2024 12:08
--- NOTE | 2024-12-14 12:38 | DVHPN2 ---
Reviewed: Care Plan, H&P, Labs, Medications, Previous Orders, Radiology Changes from previous H/P or p: No Changes Objective Vitals Vital Signs Date Time Temp Pulse Resp B/P (MAP) Pulse Ox O2 Delivery O2 Flow Rate FiO2 12/14/24 08:39 98.0 60 16 114/79 (91) 96 98.0 12/14/24 08:07 Room Air* 0 21 Intake/Output Intake and Output 12/14/24 07:00 Intake Total 20 ml Output Total 0 ml Balance 20 ml Intake Oral 20 ml Output Urine Total 0 ml Medications Current Medications Medications Dose Ordered Sig/Azalia Route Start Time Stop Time Status Last Admin Dose Admin Atorvastatin Calcium 40 mg HS PO 12/13/24 22:00 12/13/24 23:50 40 MG Acetaminophen/ Hydrocodone Bitart 1 tab Q4HP PRN PO 12/13/24 19:30 12/13/24 23:53 1 TAB Ondansetron HCl 4 mg Q4HP PRN IV 12/13/24 19:30 Acetaminophen 650 mg Q6HP PRN PO 12/13/24 19:30 Heparin Sodium/ Dextrose 250 ml @ 14 mls/hr [id number] IV 12/13/24 22:00 12/13/24 23:46 14 MLS/HR Laboratory Results Laboratory Tests 12/13/24 20:02 12/14/24 05:19 Chemistry Test 12/13/24 13:41 12/14/24 05:19 Albumin 4.4 g/dL (3.2-4.8) Calcium Level 9.4 mg/dL (8.7-10.4) 8.9 mg/dL (8.7-10.4) Total Protein 7.8 g/dL (5.7-8.2) Coagulation Test 12/13/24 13:41 12/13/24 20:02 12/14/24 05:19 12/14/24 11:14 Prothrombin Time 11.5 sec (9.3-11.8) 11.4 sec (9.3-11.8) 11.6 sec (9.3-11.8) 11.5 sec (9.3-11.8) Prothrombin Time INR 1.09 (0.9-1.15) 1.08 (0.9-1.15) 1.11 (0.9-1.15) 1.09 (0.9-1.15) Activated Partial Thromboplast Time 31.0 SEC (24.5-34.5) 31.3 SEC (24.5-34.5) 57.2 SEC (24.5-34.5) H 59.8 SEC (24.5-34.5) H D-Dimer, Quantitative 6.83 mg/L FEU (0.0-0.49) H LFT Test 12/13/24 13:41 Alanine Aminotransferase (ALT) 13 U/L (7-40) Alkaline Phosphatase 75 U/L (46-116) Aspartate Amino Transferase (AST) 20 U/L (13-40) Total Bilirubin 0.5 mg/dL (0.2-1.0) Labs and/or images reviewed: Labs reviewed by me, Image(s) reviewed by me Assessment/Plan Assessment/Plan # Acute deep vein thrombosis (DVT) of left leg, heparin drip per protocol cardiology consult for Dr. Vazquez and Radiology consult for possible thrombectomy # S/P right knee arthroplasty # Hypercholesterolemia # Bronchial asthma without exacerbation # Hypertensive heart disease Plan discussed with: Patient Date of Service: Dec 14, 2024 Billing Provider: JULIA BELLO MD Common Visit Codes: [id number] INP/OBS CARE(HIGH) JULIA BELLO MD Dec 14, 2024 12:38
[2024-12-14] MEDS: IOHEXOL 300 MG/ML 100ML BOTTLE IJ ONE (12:47)
--- NOTE | 2024-12-14 13:51 | DVH ---
Indication: eval dvt Technique: CT axial images of the pelvis are obtained with intravenous contrast. Coronal and sagitta l reformats were obtained. Radiation Dose Information: CTDI volume is 9.07 mGy. Dose-length product is 3.92 mGy*cm Comparison: 12/13/2024 FINDINGS: Insufficient opacification of the veins to evaluate for DVT. Cholelithiasis. Imaged small bowel loops normal in caliber. Moderate volume stool in the colon. [place] marlin diverticula. Abdominal aortic atherosclerotic disease. Bladder partially distended. No free pelv ic fluid. Insufficient contrast opacification IVC and veins to evaluate for DVT. There is thrombus within the l eft common femoral vein extending into the left superficial femoral vein. There is narrowing of the l eft common iliac vein proximally. There is inflammatory stranding surrounding the left common iliac, external iliac veins best seen on the coronal sequences. Numerous inguinal region collaterals consistent with history of deep vein thrombosis. There is extensive left lower extremity soft tissue edema / stranding and asymmetrical enlargement Left inguinal lymphadenopathy measuring up to 1.7 cm. IMPRESSION: Insufficient opacification of the veins to evaluate degree of DVT. Recommend dedicated CT venogram o f the abdomen / pelvis to fully characterize. Deep vein thrombosis within the left common femoral vein extending into the left superficial femoral vein. Suspected deep vein thrombosis of the left common, external iliac veins. Extensive left lower extremity soft tissue edema and stranding with asymmetrical enlargement compared to the contralateral right extremity Narrowing of the left common iliac vein proximally. Correlate for May Ye[place] syndrome. Left inguinal lymphadenopathy. Atherosclerotic disease. Colonic diverticular disease. Cholelithiasis.
--- NOTE | 2024-12-14 15:49 | DVHINCON2 ---
Date Seen: Dec 14, 2024 Referring Physician MD Juan Reason for Consultation Extensive DVT of the left lower extremity History of Present Illness This is a Greenlandic-speaking 69-year-old female patient who presents to the emergency room with chief complaint of worsening pain and edema to left lower extremity. The patient was diagnosed with an extensive occlusive deep venous thrombus in October 2024 at this facility. She was sent home on anticoagulation. The patient states that a few days prior to this admission, she began to notice an increase in swelling in her left lower extremity with pain to her left leg. This prompted her to come to the emergency room for further evaluation. A repeat ultrasound revealed an extensive occlusive deep venous thrombus extending from the left common femoral vein to the left posterior tibial vein. CT angiography negative for pulmonary embolism. Cardiology was consulted for possible mechanical thrombectomy. Initial twelve lead electrocardiogram reviewed and revealed normal sinus rhythm without any ST segment changes. Initial troponin level was negative and the patient denies any cardiac symptoms. Significant past medical history includes hypertension, dyslipidemia, asthma, and left lower extremity DVT (on Eliquis). Past Medical History Past medical history reviewed. No other significant than mentioned above. Past Surgical History Right knee replacement Hysterectomy Family History: Patient reports no known family medical history. Family History Family history reviewed. Social History Denies the use of tobacco, alcohol or illicit drugs. Allergies: Coded Allergies: No Known Drug Allergy (Verified Allergy, Unknown, 07/26/23) Home Meds Active Scripts Apixaban Base (ELIQUIS) 5 Mg Tab, 10 MG PO BID for 7 Days, #14 TAB 10MG BID X 7 DAYS THEN 5MG PO BID FOR AT LEAST 6 MONTHS FOR DVT/PE TREATMENT Prov:SACHA PARSONS RESIDENT 10/29/24 Apixaban Base (ELIQUIS) 5 Mg Tab, 5 MG PO BID for 90 Days, #180 TAB 3 Refills Prov:SACHA PARSONS [facility] 10/29/24 Polyethylene Glycol 3350 (Miralax) 17 Gm Pow, 17 GM PO DAILY for 7 Days, #450 POW Prov:MARILUZ PARSONSRA [facility] 10/29/24 Apixaban Base (ELIQUIS) 5 Mg Tab, 10 MG PO BID for 7 Days, #14 TAB 10MG BID X 7 DAYS THEN 5MG PO BID FOR AT LEAST 6 MONTHS FOR DVT/PE TREATMENT Prov:MARILUZ PARSOSNRA [facility] 10/29/24 Apixaban Base (ELIQUIS) 5 Mg Tab, 5 MG PO BID for 60 Days, #120 TAB Prov:HUSSAINSACHA MUNOZ RESIDENT 10/29/24 Reported Medications Meclizine Hcl (Meclizine Hcl) 25 Mg Tab, 25 MG PO DAILY for 30 Days, MG 10/28/24 Aspirin (Aspir-Low) 81 Mg Tab, 81 MG PO DAILY for 30 Days, MG 10/28/24 Docusate Sodium (Colace) 100 Mg Cap, 1 CAP PO BID, #30 CAP 10/28/24 Gabapentin (Gabapentin) 100 Mg Cap, 100 MG PO TID 10/28/24 Oxycodone W/ Acetaminophen (Percocet 5/325MG) 1 Tab Tb, 1 TAB PO QID, #120 TAB 10/28/24 Citalopram Hydrobromide (Citalopram Hydrobromide) 10 Mg Tab, 1 TAB PO DAILY 10/27/24 Lisinopril (Lisinopril) 20 Mg Tab, 1 TAB PO DAILY 10/27/24 Atorvastatin Calcium (ATORVASTATIN CALCIUM) 80 Mg Tab, 1 TAB PO DAILY 10/27/24 Home Meds Home medications reviewed. Current Medications Current Medications Medications (Trade) Dose Ordered Sig/Azalia Route PRN Reason Start Time Stop Time Status Last Admin Enoxaparin Sodium (Lovenox) 80 mg Q12HR SC 12/13/24 22:00 12/13/24 19:54 DC Atorvastatin Calcium (Lipitor) 40 mg HS PO 12/13/24 22:00 12/13/24 23:50 Acetaminophen/ Hydrocodone Bitart ([place] 5/325MG Tab) 1 tab Q4HP PRN PO MODERATE PAIN (4-6 PAIN SCALE) 12/13/24 19:30 12/13/24 23:53 Ondansetron HCl (Zofran) 4 mg Q4HP PRN IV NAUSEA / VOMITING 12/13/24 19:30 Acetaminophen (Tylenol Tablet) 650 mg Q6HP PRN PO PAIN SCALE 1-3 OR TEMP>100.4 12/13/24 19:30 Heparin Sodium/ Dextrose 250 ml @ 14 mls/hr [id number] IV 12/13/24 20:00 12/13/24 21:58 DC Heparin Sodium/ Dextrose 250 ml @ 14 mls/hr [id number] IV 12/13/24 22:00 12/14/24 15:24 Review of Systems Constitutional: No symptom reported Ears, Nose, & Throat: No symptom reported Eyes: No symptom reported Neurological: No symptoms reported Pulmonary/Respiratory: No symptoms reported Cardiovascular: Left lower extremity edema Gastrointestinal: No symptom reported Genitourinary: No symptom reported Musculoskeletal: Left leg pain Skin: No symptom reported Psychiatric: No symptom reported Endocrine: No symptom reported Hematologic/Lymphatic: No symptom reported Vital Signs Vital Signs Date Time Temp Pulse Resp B/P (MAP) Pulse Ox O2 Delivery O2 Flow Rate FiO2 12/14/24 12:40 98.3 65 16 127/77 (94) 96 98.3 12/14/24 08:07 Room Air* 0 21 Physical Exam General Appearance: Cooperative. Obese Pulmonary/Respiratory: Clear, bilateral breaths sounds. Cardiovascular/Chest: Regular rate and rhythm. Peripheral Pulses: 2+ Radial (R). 2+ Radial (L). 2+ Pedal (R). 2+ Pedal (L) Abdominal Exam: Normal bowel sounds. Ankle Exam: Negative ankle edema Lower extremities: Nonpitting left lower extremity edema. Neuro/Mental Status: A/OX4, coherent. Thoughts/Psych: Normal thought pattern. Appropriate mood and affect. Good judgment and insight. Appearance: No acute distress. Skin Exam: Left lower extremity redness. Skin warm and dry Labs/Diagnostic Data Labs Test 12/14/24 11:14 12/14/24 05:19 12/13/24 20:02 12/13/24 13:41 Range/Units Prothrombin Time 11.5 9.3-11.8 sec Prothrombin Time INR 1.09 0.9-1.15 Activated Partial Thromboplast Time 59.8 H 24.5-34.5 SEC Sodium Level 141 136-145 mmol/L Potassium Level 3.8 3.5-5.1 mmol/L Chloride Level 106 98-107 mmol/L Carbon Dioxide Level 26 20-31 mmol/L Anion Gap 9 5-15 Blood Urea Nitrogen 8 L 9-23 mg/dL Creatinine 0.60 0.550-1.02 mg/dL Glomerular Filtration Rate Calc 96 >90 mL/min BUN/Creatinine Ratio 13.3 10.0-20.0 Serum Glucose 89 74-106 mg/dL Calcium Level 8.9 8.7-10.4 mg/dL White Blood Count 7.0 4.4-10.8 10^3/uL Red Blood Count 4.43 4.0-5.20 10^6/uL Hemoglobin 11.6 L 12.2-16.2 g/dL Hematocrit 35.2 L 36.0-46.0 % Mean Corpuscular Volume 79.4 L 80.0-100.0 fL Mean Corpuscular Hemoglobin 26.1 L 28.0-32.0 pg Mean Corpuscular Hemoglobin Concent 32.9 32.0-36.0 g/dL Red Cell Distribution Width 16.0 H 11.8-14.3 % Platelet Count 411 140-450 10^3/uL Mean Platelet Volume 7.7 6.9-10.8 fL Neutrophils (%) (Auto) 47.8 37.0-80.0 % Lymphocytes (%) (Auto) 35.7 10.0-50.0 % Monocytes (%) (Auto) 10.5 0.0-12.0 % Eosinophils (%) (Auto) 4.8 0.0-7.0 % Basophils (%) (Auto) 1.2 0.0-2.0 % Neutrophils # (Auto) 3.3 1.6-8.6 10 ^3/uL Lymphocytes # (Auto) 2.5 0.4-5.4 10 ^3/uL Monocytes # (Auto) 0.7 0-1.3 10 ^3/uL Eosinophils # (Auto) 0.3 0-0.8 10 ^3/uL Basophils # (Auto) 0.1 0-0.2 10 ^3/uL Nucleated Red Blood Cells 0.1 % D-Dimer, Quantitative 6.83 H 0.0-0.49 mg/L FEU Total Bilirubin 0.5 0.2-1.0 mg/dL Aspartate Amino Transferase (AST) 20 13-40 U/L Alanine Aminotransferase (ALT) 13 7-40 U/L Alkaline Phosphatase 75 46-116 U/L Troponin I High Sensitivity < 3 L </=34 ng/L Total Protein 7.8 5.7-8.2 g/dL Albumin 4.4 3.2-4.8 g/dL Assessment Extensive occlusive DVT of the left common femoral to posterior tibial vein Hypertension Dyslipidemia Asthma Obesity Plan/Recommendation We will continue with the following plan/recommendations (Dr. Vazquez): Case discussed with . reviewed imaging. Given the patient's clinical presentation, she may benefit from a mechanical thrombectomy although patient has had this DVT since October 2024. Procedure discussed with the patient full detail including risks and benefits. Patient also made aware that since DVT has been present for two months, it may be difficult to remove clot burden. Patient verbalized an understanding and would like to try for mechanical thrombectomy given pain and discomfort to her left lower extremity despite being on anticoagulation therapy at home. In the meantime, continue with heparin drip per protocol. Thank you for allowing us to care for this patient. Please call with any questions or concerns. Critical care time spent: 44 minutes This medical document was created using an electronic medical record system with voice recognition software and computerized dictation system. Although this document has been carefully reviewed, there might still be some phonetic and typographical errors. Occasional wrong-word or ``sound-alike substitutions may have occurred due to the inherent limitations of voice recognition software. These areas are purely typographical due to imperfections of the software programs and do not reflect any compromise in the patient's medical care. Please read the chart carefully and recognize, using context, where these substitutions have occurred. Plan discussed with: Patient NYHA Physical activity limitations: NA Date of Service: Dec 14, 2024 Billing Provider: VERÓNICA LE Cardiology Common Codes: [id number] INP/OBS CARE (High) Cardiology Consultation Codes: [id number] CONSULT <45MIN VERÓNICA LE Dec 14, 2024 15:49
[2024-12-14 18:32] LABS: INR 1.09 (0.9-1.15); Partial Thromboplastin Time 59.1 SEC (24.5-34.5); Prothrombin Time 11.5 sec (9.3-11.8)
[2024-12-15] VITALS (12 sets, daily range): BP systolic 125–151; BP diastolic 69–99; PULSE 60–81; RESP 13–19; TEMP 97.6–98; O2SAT 95–98
[2024-12-15 07:30] LABS: Hemoglobin 11.0 g/dL (12.2-16.2); Nucleated Red Blood Cells % 0.1 %
[2024-12-15 07:33] LABS: Hematocrit 33.2 % (36.0-46.0); Mean Corpuscular Hemoglobin 26.4 pg (28.0-32.0); Mean Corpuscular Volume 79.5 fL (80.0-100.0)
[2024-12-15 07:54] LABS: INR 1.09 (0.9-1.15); Partial Thromboplastin Time 55.1 SEC (24.5-34.5); Prothrombin Time 11.5 sec (9.3-11.8)
--- NOTE | 2024-12-15 09:19 | DVHPN2 ---
Reviewed: Care Plan, H&P, Labs, Medications, Previous Orders, Radiology Changes from previous H/P or p: No Changes Objective Vitals Vital Signs Date Time Temp Pulse Resp B/P (MAP) Pulse Ox O2 Delivery O2 Flow Rate FiO2 12/15/24 08:03 60 16 96 Room Air* 0 21 12/15/24 06:00 97.6 145/77 (99) 97.6 Intake/Output Intake and Output 12/15/24 07:00 Intake Total 500 ml Balance 500 ml Intake Oral 500 ml # Voids 8 # Bowel Movements 4 Medications Current Medications Medications Dose Ordered Sig/Azalia Route Start Time Stop Time Status Last Admin Dose Admin Atorvastatin Calcium 40 mg HS PO 12/13/24 22:00 12/14/24 22:07 40 MG Acetaminophen/ Hydrocodone Bitart 1 tab Q4HP PRN PO 12/13/24 19:30 12/14/24 22:17 1 TAB Ondansetron HCl 4 mg Q4HP PRN IV 12/13/24 19:30 Acetaminophen 650 mg Q6HP PRN PO 12/13/24 19:30 Heparin Sodium/ Dextrose 250 ml @ 14 mls/hr [id number] IV 12/13/24 22:00 12/14/24 15:24 14 MLS/HR Laboratory Results Laboratory Tests 12/14/24 05:19 12/15/24 06:30 Coagulation Test 12/14/24 11:14 12/14/24 17:32 12/15/24 06:30 Prothrombin Time 11.5 sec (9.3-11.8) 11.5 sec (9.3-11.8) 11.5 sec (9.3-11.8) Prothrombin Time INR 1.09 (0.9-1.15) 1.09 (0.9-1.15) 1.09 (0.9-1.15) Activated Partial Thromboplast Time 59.8 SEC (24.5-34.5) H 59.1 SEC (24.5-34.5) H 55.1 SEC (24.5-34.5) H Labs and/or images reviewed: Labs reviewed by me, Image(s) reviewed by me Assessment/Plan Assessment/Plan # Acute deep vein thrombosis (DVT) of left leg, heparin drip per protocol cardiology consult for Dr. Vazquez appreciated, patient getting thrombectomy by interventional radiologist today # S/P right knee arthroplasty # Hypercholesterolemia # Bronchial asthma without exacerbation # Hypertensive heart disease Plan discussed with: Patient My Orders Orders - JULIA BELLO MD Procedure Category Date Status Time * Cardiology Consult CONS 12/14/24 Transmitted 12:41 Date of Service: Dec 15, 2024 Billing Provider: JULIA BELLO MD Common Visit Codes: [id number] INP/OBS CARE(HIGH) JULIA BELLO MD Dec 15, 2024 09:19
[2024-12-15] MEDS: HEPARIN DRIP/D5W 100UNITS/ML 250 ML IV ONE (10:05)
[2024-12-15] MEDS: MIDAZOLAM HCL 2MG/2ML 2ml VIAL (1mg/ml) ONE ×2 (12:00→12:54)
[2024-12-15] MEDS: fentaNYL CITRATE 100 MCG/2 ML VL ONE ×2 (12:00→12:54)
[2024-12-15] MEDS: LIDOCAINE 2%HCL (LOCAL ANESTH.) INJ 20ML MDV ONE (12:01)
[2024-12-15] MEDS: HEPARIN SODIUM (PORCINE) 5000 UNITS/ML 1ML VIAL ONE ×2 (12:11→13:25)
[2024-12-15] MEDS: IODIXANOL 320MG/ML 100ML BTL IV ONE ×2 (14:15→15:31)
[2024-12-15] MEDS: HEPARIN DRIP/D5W 100UNITS/ML 250 ML IV SCH ×2 (16:41→18:54)
[2024-12-15 18:00] LABS: INR 1.13 (0.9-1.15); Partial Thromboplastin Time 117.1 SEC (24.5-34.5); Prothrombin Time 11.8 sec (9.3-11.8)
--- NOTE | 2024-12-15 18:09 | CONS ---
Pharmacy Clinical Information: HEPARIN HELD FOR 1 HOUR @1800 AND WILL RESTART @1900--NEW HEPARIN RATE 11 ML/HR OR 1100 UNITS/HR SINCE APTT = 117.1 @1721 ON 12/15 PER RX PROTOCOL. NEXT APTT SCHEDULED SIX HOURS FROM TIME OF RESTARTING NEW HEPARIN RATE 11 ML/HR. HUY ORELLANA AWARE AND REPEATED ORDER BACK. TETE THOMPSON PHARMACIST Dec 15, 2024 18:09
--- NOTE | 2024-12-15 18:42 | DVH ---
Exam: US US GUIDANCE FOR NEEDLE PLACEME Clinical History: ACCESS FOR DVT THROMBECTMY Comparison: None Technique: Targeted sonographic evaluation of the soft tissues of the left popliteal vein was obtained utilizin g grayscale and color Doppler imaging. Findings/Impression: Sonographic assistance for left popliteal vein access for thrombectomy. Please refer to procedural r eport for detailed findings.
[2024-12-16] VITALS (8 sets, daily range): BP systolic 110–149; BP diastolic 61–77; PULSE 63–76; RESP 15–18; TEMP 97.7–98.2; O2SAT 94–98
[2024-12-16 01:21] LABS: INR 1.09 (0.9-1.15); Partial Thromboplastin Time 49.5 SEC (24.5-34.5); Prothrombin Time 11.5 sec (9.3-11.8)
[2024-12-16] MEDS: HEPARIN DRIP/D5W 100UNITS/ML 250 ML IV SCH ×3 (02:30→18:29)
--- NOTE | 2024-12-16 09:29 | DVHPN2 ---
Reviewed: Care Plan, H&P, Labs, Medications, Previous Orders, Radiology Changes from previous H/P or p: No Changes Objective Vitals Vital Signs Date Time Temp Pulse Resp B/P (MAP) Pulse Ox O2 Delivery O2 Flow Rate FiO2 12/16/24 08:49 98.0 72 17 149/77 (101) 95 98.0 12/16/24 07:35 Room Air* 0 21 Intake/Output Intake and Output 12/16/24 07:00 Intake Total 480 ml Balance 480 ml Intake Oral 480 ml # Voids 4 # Bowel Movements 1 Medications Current Medications Medications Dose Ordered Sig/Azalia Route Start Time Stop Time Status Last Admin Dose Admin Atorvastatin Calcium 40 mg HS PO 12/13/24 22:00 12/15/24 21:19 40 MG Acetaminophen/ Hydrocodone Bitart 1 tab Q4HP PRN PO 12/13/24 19:30 12/15/24 21:23 1 TAB Ondansetron HCl 4 mg Q4HP PRN IV 12/13/24 19:30 Acetaminophen 650 mg Q6HP PRN PO 12/13/24 19:30 Heparin Sodium/ Dextrose 250 ml @ 13 mls/hr [id number] IV 12/16/24 02:30 12/16/24 02:30 13 MLS/HR Laboratory Results Laboratory Tests 12/14/24 05:19 12/15/24 06:30 Coagulation Test 12/15/24 17:21 12/16/24 00:55 Prothrombin Time 11.8 sec (9.3-11.8) 11.5 sec (9.3-11.8) Prothrombin Time INR 1.13 (0.9-1.15) 1.09 (0.9-1.15) Activated Partial Thromboplast Time 117.1 SEC (24.5-34.5) *H 49.5 SEC (24.5-34.5) H Labs and/or images reviewed: Labs reviewed by me, Image(s) reviewed by me Assessment/Plan Assessment/Plan # Acute deep vein thrombosis (DVT) of left leg, heparin drip per protocol cardiology consult for Dr. Vazquez appreciated, status post thrombectomy by radiologist, radiologist planning for iliac stent on Wednesday # S/P right knee arthroplasty # Hypercholesterolemia # Bronchial asthma without exacerbation # Hypertensive heart disease Time spent 48 minutes Plan discussed with: Patient My Orders Orders - JULIA BELLO MD Procedure Category Date Status Time Cardiac DIET 12/15/24 Transmitted Diet-2gna,Lofat,Lochol Dinner Date of Service: Dec 16, 2024 Billing Provider: JULIA BELLO MD Common Visit Codes: [id number] INP/OBS CARE(HIGH) JULIA BELLO MD Dec 16, 2024 09:29
[2024-12-16 11:12] LABS: Nucleated Red Blood Cells % 0.1 %
[2024-12-16 11:14] LABS: Hematocrit 34.7 % (36.0-46.0); Hemoglobin 11.5 g/dL (12.2-16.2); Mean Corpuscular Hemoglobin 26.2 pg (28.0-32.0); Mean Corpuscular Volume 79.6 fL (80.0-100.0)
[2024-12-16 11:25] LABS: INR 1.08 (0.9-1.15); Partial Thromboplastin Time 42.5 SEC (24.5-34.5); Prothrombin Time 11.4 sec (9.3-11.8)
--- NOTE | 2024-12-16 13:50 | CONS ---
Pharmacy Clinical Information: HEPARIN UPDATE PER DVT PROTOCOL: APTT result of 42.5 received from 1047 draw. Please adjust heparin by 200 units/hr to 1500 units per hour (15mL/hr) starting at 1100. Nurse White adjusted rate at 1130. APTT/PT ordered for 1730 per PRx protocol. SHARON OHARA PHARMACIST Dec 16, 2024 13:50
[2024-12-16 18:14] LABS: INR 1.07 (0.9-1.15); Partial Thromboplastin Time 56.5 SEC (24.5-34.5); Prothrombin Time 11.3 sec (9.3-11.8)
--- NOTE | 2024-12-16 18:29 | CONS ---
Pharmacy Clinical Information: HEPARIN UPDATE PER DVT PROTOCOL: APTT result of 56.5 received from 1744 draw. Please adjust heparin by 200 units/hr to 1700 units per hour (17mL/hr) starting at 1820. Nurse Cindy adjusted rate at 1820. APTT/PT ordered for 2330 per PRx protocol. SHARON OHARA PHARMACIST Dec 16, 2024 18:29
[2024-12-17] VITALS (7 sets, daily range): BP systolic 117–138; BP diastolic 61–77; PULSE 62–75; RESP 17–20; TEMP 97.6–98.1; O2SAT 95–99
[2024-12-17 00:26] LABS: INR 1.07 (0.9-1.15); Prothrombin Time 11.3 sec (9.3-11.8)
[2024-12-17 00:33] LABS: Partial Thromboplastin Time 76.8 SEC (24.5-34.5)
[2024-12-17 06:19] LABS: Hemoglobin 11.6 g/dL (12.2-16.2); Nucleated Red Blood Cells % 0.2 %
[2024-12-17 06:20] LABS: Hematocrit 35.7 % (36.0-46.0); Mean Corpuscular Hemoglobin 25.9 pg (28.0-32.0); Mean Corpuscular Volume 79.8 fL (80.0-100.0)
[2024-12-17 08:14] LABS: INR 1.07 (0.9-1.15); Partial Thromboplastin Time 57.5 SEC (24.5-34.5); Prothrombin Time 11.3 sec (9.3-11.8)
[2024-12-17] MEDS: HEPARIN DRIP/D5W 100UNITS/ML 250 ML IV SCH (08:30)
--- NOTE | 2024-12-17 08:30 | CONS ---
Pharmacy Clinical Information: PLEASE INCREASE HEPARIN DRIP RATE TO 1900 UNITS/HR PER APTT OF 57.5 (DR BLACK SPECIFIED THERAPEUTIC RANGE FOR THIS DRIP = 60 TO 80) NEXT APTT DRAW SCHEDULED FOR 1500 PER RX PROTOCOL ESTELA HO PHARMACIST Dec 17, 2024 08:30
--- NOTE | 2024-12-17 10:33 | DVHPN2 ---
Reviewed: Care Plan, H&P, Labs, Medications, Previous Orders, Radiology Changes from previous H/P or p: No Changes Objective Vitals Vital Signs Date Time Temp Pulse Resp B/P (MAP) Pulse Ox O2 Delivery O2 Flow Rate FiO2 12/17/24 09:00 97.8 64 18 138/61 (86) 95 97.8 12/16/24 20:00 Room Air* 0 21 Intake/Output Intake and Output 12/17/24 07:00 Intake Total 1100 ml Output Total 1000 ml Balance 100 ml Intake Oral 1100 ml Output Urine Total 1000 ml # Voids 3 # Bowel Movements 2 Medications Current Medications Medications Dose Ordered Sig/Azalia Route Start Time Stop Time Status Last Admin Dose Admin Atorvastatin Calcium 40 mg HS PO 12/13/24 22:00 12/16/24 21:06 40 MG Acetaminophen/ Hydrocodone Bitart 1 tab Q4HP PRN PO 12/13/24 19:30 12/16/24 21:06 1 TAB Ondansetron HCl 4 mg Q4HP PRN IV 12/13/24 19:30 Acetaminophen 650 mg Q6HP PRN PO 12/13/24 19:30 Heparin Sodium/ Dextrose 250 ml @ 19 mls/hr [id number] IV 12/17/24 08:30 Laboratory Results Laboratory Tests 12/14/24 05:19 12/17/24 05:31 Coagulation Test 12/16/24 10:47 12/16/24 17:44 12/16/24 23:25 12/17/24 07:20 Prothrombin Time 11.4 sec (9.3-11.8) 11.3 sec (9.3-11.8) 11.3 sec (9.3-11.8) 11.3 sec (9.3-11.8) Prothrombin Time INR 1.08 (0.9-1.15) 1.07 (0.9-1.15) 1.07 (0.9-1.15) 1.07 (0.9-1.15) Activated Partial Thromboplast Time 42.5 SEC (24.5-34.5) H 56.5 SEC (24.5-34.5) H 76.8 SEC (24.5-34.5) *H 57.5 SEC (24.5-34.5) H Labs and/or images reviewed: Labs reviewed by me, Image(s) reviewed by me Assessment/Plan Assessment/Plan # Acute deep vein thrombosis (DVT) of left leg, heparin drip per protocol cardiology consult for Dr. Vazquez appreciated, status post thrombectomy by radiologist, radiologist planning for iliac stent on Wednesday # S/P right knee arthroplasty # Hypercholesterolemia # Bronchial asthma without exacerbation # Hypertensive heart disease Time spent 48 minutes Patient lives with her grandson Dixon [phone] who is at bedside. Plan discussed with: Patient Date of Service: Dec 17, 2024 Billing Provider: JULIA BELLO MD Common Visit Codes: [id number] INP/OBS CARE(HIGH) JULIA BELLO MD Dec 17, 2024 10:33
[2024-12-17 15:41] LABS: INR 1.11 (0.9-1.15); Prothrombin Time 11.6 sec (9.3-11.8)
[2024-12-17 16:03] LABS: Partial Thromboplastin Time 71.6 SEC (24.5-34.5)
[2024-12-17 22:04] LABS: INR 1.08 (0.9-1.15); Partial Thromboplastin Time 52.1 SEC (24.5-34.5); Prothrombin Time 11.4 sec (9.3-11.8)
[2024-12-17 23:42] LABS: INR 1.08 (0.9-1.15); Partial Thromboplastin Time 59.2 SEC (24.5-34.5); Prothrombin Time 11.4 sec (9.3-11.8)
[2024-12-18] VITALS (7 sets, daily range): BP systolic 112–145; BP diastolic 38–84; PULSE 63–78; RESP 16–17; TEMP 97.8–98.2; O2SAT 95–97
[2024-12-18] MEDS: HEPARIN DRIP/D5W 100UNITS/ML 250 ML IV SCH ×3 (00:33→23:15)
[2024-12-18 08:05] LABS: Hematocrit 37.2 % (36.0-46.0); Hemoglobin 12.3 g/dL (12.2-16.2); Mean Corpuscular Hemoglobin 26.6 pg (28.0-32.0); Mean Corpuscular Volume 80.7 fL (80.0-100.0); Nucleated Red Blood Cells % 0.0 %
[2024-12-18 08:20] LABS: INR 1.11 (0.9-1.15); Prothrombin Time 11.6 sec (9.3-11.8)
[2024-12-18 08:25] LABS: Partial Thromboplastin Time 91.5 SEC (24.5-34.5)
--- NOTE | 2024-12-18 09:00 | CONS ---
Pharmacy Clinical Information: HEPARIN DRIP, DVT PROTOCOL @0546 aPTT 91.5, HOLD FOR 1 HOUR AND REDUCE BY 300 UNITS (FROM 1900 TO 1600) NEXT APTT DRAW SCHEDULED @1400 PER RX PROTOCOL CONFIRMED AND READ BACK WITH RN ISHMAEL THACKER [facility] RESIDENT Dec 18, 2024 09:00
--- NOTE | 2024-12-18 10:23 | DVHPN2 ---
Reviewed: Care Plan, H&P, Labs, Medications, Previous Orders, Radiology Changes from previous H/P or p: No Changes Objective Vitals Vital Signs Date Time Temp Pulse Resp B/P (MAP) Pulse Ox O2 Delivery O2 Flow Rate FiO2 12/18/24 05:00 98.0 68 17 132/81 (98) 96 98.0 12/17/24 20:00 Room Air* 0 21 Intake/Output Intake and Output 12/18/24 07:00 Intake Total 1454 ml Balance 1454 ml Intake Oral 1340 ml IV Total 114 ml # Voids 8 # Bowel Movements 1 Medications Current Medications Medications Dose Ordered Sig/Azalia Route Start Time Stop Time Status Last Admin Dose Admin Atorvastatin Calcium 40 mg HS PO 12/13/24 22:00 12/17/24 22:49 40 MG Acetaminophen/ Hydrocodone Bitart 1 tab Q4HP PRN PO 12/13/24 19:30 12/16/24 21:06 1 TAB Ondansetron HCl 4 mg Q4HP PRN IV 12/13/24 19:30 Acetaminophen 650 mg Q6HP PRN PO 12/13/24 19:30 Heparin Sodium/ Dextrose 250 ml @ 16 mls/hr [id number] IV 12/18/24 09:00 UNV Laboratory Results Laboratory Tests 12/14/24 05:19 12/18/24 05:46 Coagulation Test 12/17/24 15:08 12/17/24 21:06 12/17/24 23:15 12/18/24 05:46 Prothrombin Time 11.6 sec (9.3-11.8) 11.4 sec (9.3-11.8) 11.4 sec (9.3-11.8) 11.6 sec (9.3-11.8) Prothrombin Time INR 1.11 (0.9-1.15) 1.08 (0.9-1.15) 1.08 (0.9-1.15) 1.11 (0.9-1.15) Activated Partial Thromboplast Time 71.6 SEC (24.5-34.5) *H 52.1 SEC (24.5-34.5) H 59.2 SEC (24.5-34.5) H 91.5 SEC (24.5-34.5) *H Labs and/or images reviewed: Labs reviewed by me, Image(s) reviewed by me Assessment/Plan Assessment/Plan # Acute deep vein thrombosis (DVT) of left leg, heparin drip per protocol cardiology consult for Dr. Vazquez appreciated, status post thrombectomy by radiologist, radiologist planning for iliac stent on Wednesday # S/P right knee arthroplasty # Hypercholesterolemia # Bronchial asthma without exacerbation # Hypertensive heart disease Time spent 48 minutes Patient lives with her grandson Dixon [phone] who is at bedside. Plan discussed with: Patient My Orders Orders - JULIA BELLO MD Procedure Category Date Status Time Npo (Nothing By DIET 12/18/24 Transmitted Mouth) Diet Breakfast Date of Service: Dec 18, 2024 Billing Provider: JULIA BELLO MD Common Visit Codes: [id number] INP/OBS CARE(HIGH) JULIA BELLO MD Dec 18, 2024 10:23
[2024-12-18 15:13] LABS: INR 1.12 (0.9-1.15); Partial Thromboplastin Time 67.8 SEC (24.5-34.5); Prothrombin Time 11.7 sec (9.3-11.8)
--- NOTE | 2024-12-18 15:32 | CONS ---
Pharmacy Clinical Information: HEPARIN DRIP, DVT PROTOCOL @1407 aPTT 67.8 - NO BOLUS, NO CHANGE NEXT aPTT DRAW SCHEDULED @1999 PER RX PROTOCOL CONFIRMED AND READ BACK WITH [facility] RES[facility] Dec 18, 2024 15:32
[2024-12-18 20:21] LABS: INR 1.09 (0.9-1.15); Partial Thromboplastin Time 29.1 SEC (24.5-34.5); Prothrombin Time 11.5 sec (9.3-11.8)
[2024-12-18] MEDS: HEPARIN SODIUM (PORCINE) 5000 UNITS/ML 1ML VIAL IV ONE (23:17)
[2024-12-19] VITALS (8 sets, daily range): BP systolic 115–133; BP diastolic 65–77; PULSE 65–82; RESP 17–19; TEMP 97.8–98.6; O2SAT 96–99
[2024-12-19 07:14] LABS: Hemoglobin 12.0 g/dL (12.2-16.2); Mean Corpuscular Hemoglobin 26.3 pg (28.0-32.0)
[2024-12-19 07:17] LABS: Hematocrit 36.7 % (36.0-46.0); Mean Corpuscular Volume 80.4 fL (80.0-100.0); Nucleated Red Blood Cells % 0.2 %
[2024-12-19 08:00] LABS: INR 1.09 (0.9-1.15); Prothrombin Time 11.5 sec (9.3-11.8)
[2024-12-19 08:03] LABS: Partial Thromboplastin Time 92.9 SEC (24.5-34.5)
--- NOTE | 2024-12-19 08:35 | DVHPN2 ---
Reviewed: Care Plan, H&P, Labs, Medications, Previous Orders, Radiology Changes from previous H/P or p: No Changes Objective Vitals Vital Signs Date Time Temp Pulse Resp B/P (MAP) Pulse Ox O2 Delivery O2 Flow Rate FiO2 12/19/24 05:00 98.0 72 17 116/71 (86) 99 98.0 12/18/24 20:00 Room Air* 0 21 Intake/Output Intake and Output 12/19/24 07:00 Intake Total 700 ml Balance 700 ml Intake Oral 700 ml # Voids 1 # Bowel Movements 1 Medications Current Medications Medications Dose Ordered Sig/Azalia Route Start Time Stop Time Status Last Admin Dose Admin Atorvastatin Calcium 40 mg HS PO 12/13/24 22:00 12/18/24 22:34 40 MG Acetaminophen/ Hydrocodone Bitart 1 tab Q4HP PRN PO 12/13/24 19:30 12/16/24 21:06 1 TAB Ondansetron HCl 4 mg Q4HP PRN IV 12/13/24 19:30 Acetaminophen 650 mg Q6HP PRN PO 12/13/24 19:30 Heparin Sodium/ Dextrose 250 ml @ 19 mls/hr [id number] IV 12/18/24 23:00 12/18/24 23:15 19 MLS/HR Laboratory Results Laboratory Tests 12/14/24 05:19 12/19/24 05:43 Coagulation Test 12/18/24 14:06 12/18/24 19:39 12/19/24 05:43 Prothrombin Time 11.7 sec (9.3-11.8) 11.5 sec (9.3-11.8) 11.5 sec (9.3-11.8) Prothrombin Time INR 1.12 (0.9-1.15) 1.09 (0.9-1.15) 1.09 (0.9-1.15) Activated Partial Thromboplast Time 67.8 SEC (24.5-34.5) H 29.1 SEC (24.5-34.5) 92.9 SEC (24.5-34.5) *H Labs and/or images reviewed: Labs reviewed by me, Image(s) reviewed by me Assessment/Plan Assessment/Plan # Acute deep vein thrombosis (DVT) of left leg, heparin drip per protocol cardiology consult for Dr. 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 Diaz on 12/18/2024 # S/P right knee arthroplasty # Hypercholesterolemia # Bronchial asthma without exacerbation # Hypertensive heart disease Time spent 48 minutes Patient lives with her grandson Dixon [phone] who is at bedside. Discussed with the patient about the procedures performed with the help of printing mechanist REYNA Álvarez present Plan discussed with: Patient My Orders Orders - JULIA BELLO MD Procedure Category Date Status Time Npo (Nothing By DIET 12/19/24 Transmitted Mouth) Diet Breakfast Date of Service: Dec 19, 2024 Billing Provider: JULIA BELLO MD Common Visit Codes: [id number] INP/OBS CARE(HIGH) JULIA BELLO MD Dec 19, 2024 08:35
[2024-12-19] MEDS: HEPARIN DRIP/D5W 100UNITS/ML 250 ML IV SCH ×2 (08:45→15:15)
--- NOTE | 2024-12-19 08:46 | CONS ---
Pharmacy Clinical Information: HEPARIN DRIP, DVT PROTOCOL @0543 APTT 92.9 - HOLD DOSE FOR 1 HOUR AND REDUCE BY 300 UNITS (FROM 1900 TO 1600) NEXT APTT SCHEDULED FOR 1400 PER RX PROTOCOL CONFIRMED AND READ BACK [facility] Dec 19, 2024 08:46
[2024-12-19 14:52] LABS: INR 1.09 (0.9-1.15); Partial Thromboplastin Time 41.6 SEC (24.5-34.5); Prothrombin Time 11.5 sec (9.3-11.8)
--- NOTE | 2024-12-19 15:15 | CONS ---
Pharmacy Clinical Information: HEPARIN DRIP, DVT PROTOCOL @1418 APTT = 41.6 - NO BOLUS, INCREASE RATE BY 200 UNITS (FROM 1600 TO 1800) NEXT APTT SCHEDULED FOR 21:00 PER RX PROTOCOL CONFIRMED AND READ BACK WITH ISHMAEL COV[facility]UBIAS [facility] RESIDENT Dec 19, 2024 15:15
[2024-12-19 21:40] LABS: INR 1.12 (0.9-1.15); Partial Thromboplastin Time 51.3 SEC (24.5-34.5); Prothrombin Time 11.7 sec (9.3-11.8)
[2024-12-20] VITALS (8 sets, daily range): BP systolic 104–127; BP diastolic 61–81; PULSE 62–72; RESP 18–20; TEMP 97.8–98.7; O2SAT 93–98
[2024-12-20] MEDS: HEPARIN DRIP/D5W 100UNITS/ML 250 ML IV SCH ×4 (01:30→21:47)
[2024-12-20 03:21] LABS: Hemoglobin 11.4 g/dL (12.2-16.2)
[2024-12-20 03:23] LABS: Hematocrit 35.0 % (36.0-46.0); Mean Corpuscular Hemoglobin 26.1 pg (28.0-32.0); Mean Corpuscular Volume 80.2 fL (80.0-100.0); Nucleated Red Blood Cells % 0.0 %
[2024-12-20 04:06] LABS: INR 1.09 (0.9-1.15); Prothrombin Time 11.5 sec (9.3-11.8)
[2024-12-20 04:11] LABS: Partial Thromboplastin Time 100.0 SEC (24.5-34.5)
--- NOTE | 2024-12-20 09:19 | DVHPN2 ---
Reviewed: Care Plan, H&P, Labs, Medications, Previous Orders, Radiology Changes from previous H/P or p: No Changes Objective Vitals Vital Signs Date Time Temp Pulse Resp B/P (MAP) Pulse Ox O2 Delivery O2 Flow Rate FiO2 12/20/24 08:00 65 18 98 Room Air* 0 21 12/20/24 05:00 97.8 127/81 (96) 97.8 Intake/Output Intake and Output 12/20/24 07:00 Intake Total 1840 ml Balance 1840 ml Intake Oral 1350 ml IV Total 490 ml # Voids 15 # Bowel Movements 4 Medications Current Medications Medications Dose Ordered Sig/Azalia Route Start Time Stop Time Status Last Admin Dose Admin Atorvastatin Calcium 40 mg HS PO 12/13/24 22:00 12/19/24 22:00 40 MG Acetaminophen/ Hydrocodone Bitart 1 tab Q4HP PRN PO 12/13/24 19:30 12/19/24 19:50 1 TAB Ondansetron HCl 4 mg Q4HP PRN IV 12/13/24 19:30 Acetaminophen 650 mg Q6HP PRN PO 12/13/24 19:30 Heparin Sodium/ Dextrose 250 ml @ 15 mls/hr [id number] IV 12/20/24 05:20 12/20/24 05:21 15 MLS/HR Laboratory Results Laboratory Tests 12/14/24 05:19 12/20/24 03:00 Coagulation Test 12/19/24 14:18 12/19/24 20:55 12/20/24 03:00 Prothrombin Time 11.5 sec (9.3-11.8) 11.7 sec (9.3-11.8) 11.5 sec (9.3-11.8) Prothrombin Time INR 1.09 (0.9-1.15) 1.12 (0.9-1.15) 1.09 (0.9-1.15) Activated Partial Thromboplast Time 41.6 SEC (24.5-34.5) H 51.3 SEC (24.5-34.5) H 100.0 SEC (24.5-34.5) *H Labs and/or images reviewed: Labs reviewed by me, Image(s) reviewed by me Assessment/Plan Assessment/Plan # Acute deep vein thrombosis (DVT) of left leg, heparin drip per protocol cardiology consult for Dr. 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 Diaz on 12/18/2024 # S/P right knee arthroplasty # Hypercholesterolemia # Bronchial asthma without exacerbation # Hypertensive heart disease Time spent 48 minutes Patient lives with her grandson Dixon [phone] who is at bedside. Discussed with the patient about the procedures performed with the help of operations support professionals REYNA Álvarez present Requested cardiology Dr. Vazquez to review further plan Plan discussed with: Patient My Orders Orders - JULIA BELLO MD Procedure Category Date Status Time Percu.Venous XY 12/15/24 Taken Thrombectomy 14:00 Date of Service: Dec 20, 2024 Billing Provider: JULIA BELLO MD Common Visit Codes: [id number] INP/OBS CARE(HIGH) JULIA BELLO MD Dec 20, 2024 09:19
[2024-12-20 12:30] LABS: INR 1.08 (0.9-1.15); Partial Thromboplastin Time 26.6 SEC (24.5-34.5); Prothrombin Time 11.4 sec (9.3-11.8)
--- NOTE | 2024-12-20 12:38 | CONS ---
Pharmacy Clinical Information: HEPARIN DRIP, DVT PROTOCOL @1140 APTT: 26.6 - GIVE 5000 UNIT IV BOLUS AND INCREASE THE RATE BY 300 UNITS (FROM 1500 TO 1800) NEXT APTT DRAW SCHEDULED @1900 PER RX PROTOCOL CONFIRMED AND READ BACK WITH ISHMAEL COVARRUBIAS [facility] RESIDENT Dec 20, 2024 12:38
[2024-12-20] MEDS ORDERED: HEPARIN SODIUM (PORCINE) 5000 UNITS/ML 1ML VIAL IV ONE (12:45)
[2024-12-20 14:31] LABS: INR 1.13 (0.9-1.15); Partial Thromboplastin Time 56.0 SEC (24.5-34.5); Prothrombin Time 11.8 sec (9.3-11.8)
--- NOTE | 2024-12-20 15:00 | CONS ---
Pharmacy Clinical Information: HEPARIN DRIP, DVT PROTOCOL STAT APTT ORDERED TO CONFIRM PREVIOUS LAB @1349 APTT 56 - NO BOLUS / NO CHANGE NEXT APTT DRAW SCHEDULED @1900PER RX PROTOCOL CONFIRMED AND READ BACK WITH RN CHARLOTTE MCKEON PHARMACIST Dec 20, 2024 15:00
[2024-12-20 20:23] LABS: INR 1.08 (0.9-1.15); Partial Thromboplastin Time 29.2 SEC (24.5-34.5); Prothrombin Time 11.4 sec (9.3-11.8)
--- NOTE | 2024-12-20 21:13 | CONS ---
Pharmacy Clinical Information: aPTT level came back 29.2 at 19:53 Administer bolus 5000 units x1 at 21:00 and then increase to 2100 units/hr or 21 ml/hr next aPTT reading at 03:00 12/21/24. Spoke with REYNA Rao Per RX protocol MARLIN Kang PHARMACIST Dec 20, 2024 21:13
[2024-12-20] MEDS: HEPARIN SODIUM (PORCINE) 5000 UNITS/ML 1ML VIAL IV ONE (21:34)
[2024-12-21] VITALS (11 sets, daily range): BP systolic 114–124; BP diastolic 60–83; PULSE 62–72; RESP 12–20; TEMP 97.7–98.1; O2SAT 94–98
[2024-12-21 04:10] LABS: INR 1.08 (0.9-1.15); Prothrombin Time 11.4 sec (9.3-11.8)
[2024-12-21 04:28] LABS: Partial Thromboplastin Time 85.8 SEC (24.5-34.5)
[2024-12-21] MEDS: HEPARIN DRIP/D5W 100UNITS/ML 250 ML IV SCH ×2 (04:42→21:43)
--- NOTE | 2024-12-21 09:43 | DVHPN2 ---
Reviewed: Care Plan, H&P, Labs, Medications, Previous Orders, Radiology Changes from previous H/P or p: No Changes Objective Vitals Vital Signs Date Time Temp Pulse Resp B/P (MAP) Pulse Ox O2 Delivery O2 Flow Rate FiO2 12/21/24 08:00 17 Room Air* 0 21 12/21/24 05:00 98.1 65 117/70 (86) 98 98.1 Intake/Output Intake and Output 12/21/24 07:00 Intake Total 576 ml Balance 576 ml Intake Oral 450 ml IV Total 126 ml # Voids 10 # Bowel Movements 1 Medications Current Medications Medications Dose Ordered Sig/Azalia Route Start Time Stop Time Status Last Admin Dose Admin Atorvastatin Calcium 40 mg HS PO 12/13/24 22:00 12/20/24 22:00 40 MG Acetaminophen/ Hydrocodone Bitart 1 tab Q4HP PRN PO 12/13/24 19:30 12/19/24 19:50 1 TAB Ondansetron HCl 4 mg Q4HP PRN IV 12/13/24 19:30 Acetaminophen 650 mg Q6HP PRN PO 12/13/24 19:30 Heparin Sodium/ Dextrose 250 ml @ 19 mls/hr [id number] IV 12/21/24 04:45 12/21/24 04:42 19 MLS/HR Laboratory Results Laboratory Tests 12/14/24 05:19 12/20/24 03:00 Coagulation Test 12/20/24 11:40 12/20/24 13:49 12/20/24 19:53 12/21/24 03:16 Prothrombin Time 11.4 sec (9.3-11.8) 11.8 sec (9.3-11.8) 11.4 sec (9.3-11.8) 11.4 sec (9.3-11.8) Prothrombin Time INR 1.08 (0.9-1.15) 1.13 (0.9-1.15) 1.08 (0.9-1.15) 1.08 (0.9-1.15) Activated Partial Thromboplast Time 26.6 SEC (24.5-34.5) 56.0 SEC (24.5-34.5) H 29.2 SEC (24.5-34.5) 85.8 SEC (24.5-34.5) *H Labs and/or images reviewed: Labs reviewed by me, Image(s) reviewed by me Assessment/Plan Assessment/Plan # Acute deep vein thrombosis (DVT) of left leg, heparin drip per protocol cardiology consult for Dr. 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 Diaz on 12/18/2024 # S/P right knee arthroplasty # Hypercholesterolemia # Bronchial asthma without exacerbation # Hypertensive heart disease Time spent 48 minutes Patient lives with her grandson Dixon [phone] who is at bedside. Discussed with the patient about the procedures performed with the help of anesthesiology resident Patient getting thrombectomy and IVC filter placement by Interventional Radiologist Dr. Morton today Plan discussed with: Patient Date of Service: Dec 21, 2024 Billing Provider: JULIA BELLO MD Common Visit Codes: [id number] INP/OBS CARE(HIGH) JULIA BELLO MD Dec 21, 2024 09:43
[2024-12-21 11:30] LABS: Hematocrit 38.0 % (36.0-46.0); Hemoglobin 12.0 g/dL (12.2-16.2); Mean Corpuscular Hemoglobin 26.0 pg (28.0-32.0); Mean Corpuscular Volume 82.0 fL (80.0-100.0); Nucleated Red Blood Cells % 0.1 %
[2024-12-21 11:46] LABS: INR 1.11 (0.9-1.15); Prothrombin Time 11.6 sec (9.3-11.8)
[2024-12-21 11:47] LABS: Partial Thromboplastin Time 92.0 SEC (24.5-34.5)
--- NOTE | 2024-12-21 12:10 | CONS ---
Pharmacy Clinical Information: HEPARIN DRIP, DVT PROTOCOL @1039 APTT = 92.0 HOLD FOR 1 HOUR AND REDUCE BY 300 UNITS (1900 TO 1600) NEXT APTT DRAW SCHEDULED FOR 1900 PER RX PROTOCOL CONFIRMED AND READ BACK WITH REYNA POWER FROM [facility] (PATIENT IS CURRENTLY IN [facility], MD [place] CONTINUING HEPARIN AFTER 1 HOUR) ISHMAEL MORALES [facility] RESIDENT Dec 21, 2024 12:10
[2024-12-21] MEDS: LIDOCAINE 2%HCL (LOCAL ANESTH.) INJ 20ML MDV ONE (12:23)
[2024-12-21] MEDS: fentaNYL CITRATE 100 MCG/2 ML VL ONE (12:26)
[2024-12-21] MEDS: MIDAZOLAM HCL 2MG/2ML 2ml VIAL (1mg/ml) ONE (12:26)
--- NOTE | 2024-12-21 14:35 | DVH ---
XY FLUOROGUIDANCE FOR NEEDLE PLAC, HISTORY: ILIAC VENOPLASTY/ STENT PROCEDURE: Informed consent was obtained. The patient was placed on the fluoroscopic table in supine position. The right/left groin was prepped with chlorhexidine which was allowed to dry and draped in the usual sterile fashion. Time out was performed. Following administration of 1% local lidocaine, th e common femoral vein was accessed with a micropuncture set under ultrasound guidance, and an image d ocumenting patency sent to PACS. A 6 Khmer vascular sheath was placed into the external iliac vein. A bilateral iliac venogram was performed. The sheath was removed and the venotomy closed with manual compression. Post-deployment image was obtained. No immediate complication was identified. DAP 394 FLUOROSCOPY TIME: 1.2 minutes. CONTRAST USED: 20 mL. SEDATION: Dr. Neha Morton was personally responsible for the administration of moderate sedation during the procedure performed, including the use of an independent trained observer who had no other duties during the procedure. The drugs utilized were IV fentanyl and versed (see nursing log for details). The total time of supervision by the attending physician was approximately 30 minutes. FINDINGS: Patent bilateral iliac veins and patent IVC with good forward flow of contrast. Moderate st enosis of the left external / common iliac vein . No collateral veins were visualized. IMPRESSION: Patent bilateral iliac veins and patent IVC with good forward flow of contrast. Moderate stenosis of the left external / common iliac vein . No collateral veins were visualized. Thus, no stent was place d.
--- NOTE | 2024-12-21 15:16 | DVHPN2 ---
Consult Progress Note Subjective Other Systems: Pt off unit at time of assessment Objective vital signs Vital Sign Date Time Temp Pulse Resp B/P (MAP) Pulse Ox O2 Delivery O2 Flow Rate FiO2 12/21/24 14:32 97.7 65 20 116/82 (93) 97 97.7 12/21/24 08:00 Room Air* 0 21 Total Intake and Output 12/20/24 12/20/24 12/21/24 15:00 23:00 07:00 Intake Total 576 ml 0 ml Balance 576 ml 0 ml medications Current Medications Medications Dose Ordered Sig/Azalia Route Start Time Stop Time Status Last Admin Dose Admin Atorvastatin Calcium 40 mg HS PO 12/13/24 22:00 12/20/24 22:00 40 MG Acetaminophen/ Hydrocodone Bitart 1 tab Q4HP PRN PO 12/13/24 19:30 12/21/24 14:28 1 TAB Ondansetron HCl 4 mg Q4HP PRN IV 12/13/24 19:30 Acetaminophen 650 mg Q6HP PRN PO 12/13/24 19:30 Heparin Sodium/ Dextrose 250 ml @ 16 mls/hr [id number] IV 12/22/24 12:05 laboratory and microbiology Laboratory Tests 12/21/24 10:39 12/14/24 05:19 Test 12/14/24 05:19 Range/Units Serum Glucose 89 74-106 mg/dL Problem List/Assessment/Plan Problem List/Assessment/Plan Extensive occlusive DVT of the left common femoral to posterior tibial vein status post thrombectomy Hypertension Dyslipidemia Asthma Obesity Plan/Recommendations (Dr. Vazquez): The patient was initially seen by Cardiology team for possible mechanical thrombectomy on 12/14/24. The patient was taken for a mechanical thrombectomy by IR team the next day (12/15/24). Patient has been exclusively followed by IR team postprocedure. We will defer all further recommendations and care to primary team and IR team. Cardiology will sign off. Thank you for allowing us to care for this patient. Please call with any questions or concerns. This medical document was created using an electronic medical record system with voice recognition software and computerized dictation system. Although this document has been carefully reviewed, there might still be some phonetic and typographical errors. Occasional wrong-word or ``sound-alike substitutions may have occurred due to the inherent limitations of voice recognition software. These areas are purely typographical due to imperfections of the software programs and do not reflect any compromise in the patient's medical care. Please read the chart carefully and recognize, using context, where these substitutions have occurred. Plan discussed with: Other (Bedside RNHaily) Dietary Evaluation Review Comments: 1) Continue cardiac diet 2) Initiate Ensure Enlive qd. Encourage optimal PO intake 3) Refer to outpatient RD for weight management 4) Follow-up with cardiology 5) Continue to monitor I&O, labs, and skin integrity Expected Outcomes/Goals: 1) appetite and labs to improve 2) f/u in 3-5 days Date of Service: Dec 21, 2024 Billing Provider: VERÓNICA LE Common Visit Codes: [id number] INP/OBS CARE(HIGH) VERÓNICA LE Dec 21, 2024 15:16
[2024-12-21 20:00] LABS: INR 1.14 (0.9-1.15); Prothrombin Time 11.9 sec (9.3-11.8)
[2024-12-21 20:28] LABS: Partial Thromboplastin Time 95.7 SEC (24.5-34.5)
--- NOTE | 2024-12-21 20:34 | CONS ---
Pharmacy Clinical Information: HOLD HEPARIN DRIP FOR 1 HR THEN DECREASE HEPARIN DRIP RATE TO 1300 UNITS/HR PER APTT OF 95.7 NEXT APTT DRAW SCHEDULED FOR 12/22 @0330 PER RX PROTOCOL REYNA LINDA CONFIRMED AND READ BACK Bria Mcclelland PHARMACIST Dec 21, 2024 20:34
[2024-12-22] VITALS (8 sets, daily range): BP systolic 123–132; BP diastolic 44–76; PULSE 67–84; RESP 16–20; TEMP 97.7–98.7; O2SAT 92–100
[2024-12-22 04:23] LABS: Hematocrit 38.0 % (36.0-46.0); Hemoglobin 12.1 g/dL (12.2-16.2); Mean Corpuscular Hemoglobin 26.1 pg (28.0-32.0); Mean Corpuscular Volume 82.0 fL (80.0-100.0); Nucleated Red Blood Cells % 0.2 %
[2024-12-22 04:35] LABS: INR 1.08 (0.9-1.15); Partial Thromboplastin Time 61.3 SEC (24.5-34.5); Prothrombin Time 11.4 sec (9.3-11.8)
[2024-12-22] MEDS: HEPARIN DRIP/D5W 100UNITS/ML 250 ML IV SCH (04:53)
--- NOTE | 2024-12-22 08:23 | DVHPN2 ---
Reviewed: Care Plan, H&P, Labs, Medications, Previous Orders, Radiology Changes from previous H/P or p: No Changes Objective Vitals Vital Signs Date Time Temp Pulse Resp B/P (MAP) Pulse Ox O2 Delivery O2 Flow Rate FiO2 12/22/24 05:00 98.0 67 16 131/74 (93) 93 98.0 12/21/24 20:00 Room Air* 0 21 Intake/Output Intake and Output 12/22/24 07:00 Intake Total 450 ml Balance 450 ml Intake Oral 200 ml IV Total 250 ml # Voids 7 Medications Current Medications Medications Dose Ordered Sig/Azalia Route Start Time Stop Time Status Last Admin Dose Admin Atorvastatin Calcium 40 mg HS PO 12/13/24 22:00 12/21/24 22:00 40 MG Acetaminophen/ Hydrocodone Bitart 1 tab Q4HP PRN PO 12/13/24 19:30 12/21/24 14:28 1 TAB Ondansetron HCl 4 mg Q4HP PRN IV 12/13/24 19:30 Acetaminophen 650 mg Q6HP PRN PO 12/13/24 19:30 Heparin Sodium/ Dextrose 250 ml @ 13 mls/hr [id number] IV 12/22/24 05:00 12/22/24 04:53 13 MLS/HR Laboratory Results Laboratory Tests 12/14/24 05:19 12/22/24 03:23 Coagulation Test 12/21/24 10:39 12/21/24 19:09 12/22/24 03:23 Prothrombin Time 11.6 sec (9.3-11.8) 11.9 sec (9.3-11.8) H 11.4 sec (9.3-11.8) Prothrombin Time INR 1.11 (0.9-1.15) 1.14 (0.9-1.15) 1.08 (0.9-1.15) Activated Partial Thromboplast Time 92.0 SEC (24.5-34.5) *H 95.7 SEC (24.5-34.5) *H 61.3 SEC (24.5-34.5) H Labs and/or images reviewed: Labs reviewed by me, Image(s) reviewed by me Assessment/Plan Assessment/Plan # Acute deep vein thrombosis (DVT) of left leg, heparin drip per protocol cardiology consult for Dr. 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 Diaz on 12/18/2024 # S/P right knee arthroplasty # Hypercholesterolemia # Bronchial asthma without exacerbation # Hypertensive heart disease Procedure by Radiolgist Dr Morton on 12-21-24: "Patent bilateral iliac veins and patent IVC with good forward flow of contrast. Moderate stenosis of the left external / common iliac vein . No collateral veins were visualized. Thus, no stent was placed". Will request Cardiology to see if heparin can be converted Eliquis Plan discussed with: Patient My Orders Orders - JULIA BELLO MD Procedure Category Date Status Time Fluoroguidance For XY 12/21/24 Resulted Needle Plac 13:31 Cardiac DIET 12/21/24 Transmitted Diet-2gna,Lofat,Lochol Dinner Date of Service: Dec 22, 2024 Billing Provider: JULIA BELLO MD Common Visit Codes: [id number] INP/OBS CARE(HIGH) JULIA BELLO MD Dec 22, 2024 08:23
[2024-12-22 10:24] LABS: INR 1.09 (0.9-1.15); Partial Thromboplastin Time 52.6 SEC (24.5-34.5); Prothrombin Time 11.5 sec (9.3-11.8)
[2024-12-22 16:30] LABS: INR 1.12 (0.9-1.15); Partial Thromboplastin Time 55.7 SEC (24.5-34.5); Prothrombin Time 11.7 sec (9.3-11.8)
[2024-12-22 22:30] LABS: INR 1.08 (0.9-1.15); Partial Thromboplastin Time 52.7 SEC (24.5-34.5); Prothrombin Time 11.4 sec (9.3-11.8)
[2024-12-23] VITALS (9 sets, daily range): BP systolic 114–126; BP diastolic 67–78; PULSE 65–89; RESP 16–18; TEMP 97–100.4; O2SAT 95–100
[2024-12-23 07:50] LABS: Hematocrit 36.6 % (36.0-46.0); Hemoglobin 12.0 g/dL (12.2-16.2); Mean Corpuscular Hemoglobin 26.3 pg (28.0-32.0); Mean Corpuscular Volume 80.5 fL (80.0-100.0); Nucleated Red Blood Cells % 0.1 %
--- NOTE | 2024-12-23 08:37 | DVHPN2 ---
Reviewed: Care Plan, H&P, Labs, Medications, Previous Orders, Radiology Changes from previous H/P or p: No Changes Objective Vitals Vital Signs Date Time Temp Pulse Resp B/P (MAP) Pulse Ox O2 Delivery O2 Flow Rate FiO2 12/23/24 05:00 97.4 69 16 126/71 (89) 96 97.4 12/22/24 20:00 Room Air* 0 21 Intake/Output Intake and Output 12/23/24 07:00 Intake Total 1520 ml Output Total 1200 ml Balance 320 ml Intake Oral 1140 ml IV Total 380 ml Output Urine Total 1200 ml # Voids 7 # Bowel Movements 1 Medications Current Medications Medications Dose Ordered Sig/Azalia Route Start Time Stop Time Status Last Admin Dose Admin Atorvastatin Calcium 40 mg HS PO 12/13/24 22:00 12/22/24 21:59 40 MG Ondansetron HCl 4 mg Q4HP PRN IV 12/13/24 19:30 Acetaminophen 650 mg Q6HP PRN PO 12/13/24 19:30 Heparin Sodium/ Dextrose 250 ml @ 13 mls/hr [id number] IV 12/22/24 05:00 12/23/24 00:32 13 MLS/HR Laboratory Results Laboratory Tests 12/14/24 05:19 12/23/24 06:58 Coagulation Test 12/22/24 09:30 12/22/24 15:39 12/22/24 21:45 Prothrombin Time 11.5 sec (9.3-11.8) 11.7 sec (9.3-11.8) 11.4 sec (9.3-11.8) Prothrombin Time INR 1.09 (0.9-1.15) 1.12 (0.9-1.15) 1.08 (0.9-1.15) Activated Partial Thromboplast Time 52.6 SEC (24.5-34.5) H 55.7 SEC (24.5-34.5) H 52.7 SEC (24.5-34.5) H Labs and/or images reviewed: Labs reviewed by me, Image(s) reviewed by me Assessment/Plan Assessment/Plan # Acute deep vein thrombosis (DVT) of left leg, heparin drip converted to Eliquis p.o. cardiology consult for Dr. 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 Diaz on 12/18/2024 # S/P right knee arthroplasty # Hypercholesterolemia # Bronchial asthma without exacerbation # Hypertensive heart disease Procedure by Radiolgist Dr Morton on 12-21-24: "Patent bilateral iliac veins and patent IVC with good forward flow of contrast. Moderate stenosis of the left external / common iliac vein . No collateral veins were visualized. Thus, no stent was placed". Possible DC tomorrow Plan discussed with: Patient Date of Service: Dec 23, 2024 Billing Provider: JULIA BELLO MD Common Visit Codes: [id number] INP/OBS CARE(HIGH) JULIA BELLO MD Dec 23, 2024 08:37
[2024-12-23] MEDS: APIXABAN 5 MG TAB PO SCH (09:41)
[2024-12-23] MEDS: ACETAMINOPHEN 325 MG TAB PO PRN (21:51)
[2024-12-24 01:00] VITALS: BP 114/72; PULSE 71; RESP 18; TEMP 98; O2SAT 95
[2024-12-24 05:00] VITALS: BP 138/72; PULSE 72; RESP 18; TEMP 97.5; O2SAT 96
[2024-12-24 08:00] VITALS: PULSE 71; RESP 16; O2SAT 96
[2024-12-24] MEDS ORDERED: APIX5TAB PO (08:16)
[2024-12-24] MEDS ORDERED: ATOR-507 PO (08:19)
--- NOTE | 2024-12-24 08:21 | DVHPN2 ---
Reviewed: Care Plan, H&P, Labs, Medications, Previous Orders, Radiology Changes from previous H/P or p: No Changes Objective Vitals Vital Signs Date Time Temp Pulse Resp B/P (MAP) Pulse Ox O2 Delivery O2 Flow Rate FiO2 12/24/24 05:00 97.5 72 18 138/72 (94) 96 97.5 12/23/24 20:00 Room Air* 0 21 Intake/Output Intake and Output 12/24/24 07:00 Intake Total 1100 ml Balance 1100 ml Intake Oral 1100 ml # Voids 12 # Bowel Movements 1 Medications Current Medications Medications Dose Ordered Sig/Azalia Route Start Time Stop Time Status Last Admin Dose Admin Atorvastatin Calcium 40 mg HS PO 12/13/24 22:00 12/23/24 21:48 40 MG Ondansetron HCl 4 mg Q4HP PRN IV 12/13/24 19:30 Acetaminophen 650 mg Q6HP PRN PO 12/13/24 19:30 12/23/24 21:51 650 MG Apixaban 10 mg BID PO 12/23/24 10:00 12/30/24 09:59 12/23/24 21:48 10 MG Laboratory Results Laboratory Tests 12/14/24 05:19 12/23/24 06:58 Labs and/or images reviewed: Labs reviewed by me, Image(s) reviewed by me Assessment/Plan Assessment/Plan # Acute deep vein thrombosis (DVT) of left leg, heparin drip converted to Eliquis p.o. cardiology consult for Dr. 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 Diaz on 12/18/2024 repeat procedure by radiologist Dr. Morton showed patent bilateral iliac veins and patent IVC with a good forward flow, no stent was placed # S/P right knee arthroplasty # Hypercholesterolemia # Bronchial asthma without exacerbation # Hypertensive heart disease Plan discussed with: Patient My Orders Orders - JULIA BELLO MD Procedure Category Date Status Time Apixaban (Eliquis) PHA 12/23/24 In Process 10:00 Date of Service: Dec 24, 2024 Billing Provider: JULIA BELLO MD Common Visit Codes: [id number] INP/OBS CARE(HIGH) JULIA BELLO MD Dec 24, 2024 08:21
--- NOTE | 2024-12-24 08:27 | DVHDS2 ---
Discharge Summary Date of Admission Dec 13, 2024 at 19:24 Date of Discharge: Dec 24, 2024 Admitting Diagnosis Left leg pain Wounds: Thrombectomy left lower extremity Labs/Diagnostic Data: Laboratory Results Test 12/23/24 06:58 12/22/24 21:45 12/14/24 05:19 12/13/24 13:41 White Blood Count 6.0 10^3/uL (4.4-10.8) Red Blood Count 4.55 10^6/uL (4.0-5.20) Hemoglobin 12.0 g/dL (12.2-16.2) Hematocrit 36.6 % (36.0-46.0) Mean Corpuscular Volume 80.5 fL (80.0-100.0) Mean Corpuscular Hemoglobin 26.3 pg (28.0-32.0) Mean Corpuscular Hemoglobin Concent 32.7 g/dL (32.0-36.0) Red Cell Distribution Width 16.9 % (11.8-14.3) Platelet Count 306 10^3/uL (140-450) Mean Platelet Volume 8.3 fL (6.9-10.8) Neutrophils (%) (Auto) 48.1 % (37.0-80.0) Lymphocytes (%) (Auto) 35.3 % (10.0-50.0) Monocytes (%) (Auto) 10.6 % (0.0-12.0) Eosinophils (%) (Auto) 5.1 % (0.0-7.0) Basophils (%) (Auto) 0.9 % (0.0-2.0) Neutrophils # (Auto) 2.9 10 ^3/uL (1.6-8.6) Lymphocytes # (Auto) 2.1 10 ^3/uL (0.4-5.4) Monocytes # (Auto) 0.6 10 ^3/uL (0-1.3) Eosinophils # (Auto) 0.3 10 ^3/uL (0-0.8) Basophils # (Auto) 0.1 10 ^3/uL (0-0.2) Nucleated Red Blood Cells 0.1 % Prothrombin Time 11.4 sec (9.3-11.8) Prothrombin Time INR 1.08 (0.9-1.15) Activated Partial Thromboplast Time 52.7 SEC (24.5-34.5) Sodium Level 141 mmol/L (136-145) Potassium Level 3.8 mmol/L (3.5-5.1) Chloride Level 106 mmol/L (98-107) Carbon Dioxide Level 26 mmol/L (20-31) Anion Gap 9 (5-15) Blood Urea Nitrogen 8 mg/dL (9-23) Creatinine 0.60 mg/dL (0.550-1.02) Glomerular Filtration Rate Calc 96 mL/min (>90) BUN/Creatinine Ratio 13.3 (10.0-20.0) Serum Glucose 89 mg/dL (74-106) Calcium Level 8.9 mg/dL (8.7-10.4) D-Dimer, Quantitative 6.83 mg/L FEU (0.0-0.49) Total Bilirubin 0.5 mg/dL (0.2-1.0) Aspartate Amino Transferase (AST) 20 U/L (13-40) Alanine Aminotransferase (ALT) 13 U/L (7-40) Alkaline Phosphatase 75 U/L (46-116) Troponin I High Sensitivity < 3 ng/L (</=34) Total Protein 7.8 g/dL (5.7-8.2) Albumin 4.4 g/dL (3.2-4.8) Other Laboratory Tests 12/23/24 06:58 12/14/24 05:19 Brief Hx & Hospital Course: 69-year-old female with a history of hypercholesterolemia asthma hypertension status post right knee arthroplasty came in complaining of pain in the left leg with swelling. Found to have extensive DVT of left lower extremity started on heparin. Seen by Cardiology Dr. Vazquez. Underwent thrombectomy by interventional radiologist of the left lower extremity veins by Dr. Diaz. Subsequently underwent repeat angiogram by Dr. Morton and found to have patent bilateral iliac veins and patent IVC filter with a good forward flow. No stent was placed. Heparin was at transition to Eliquis and patient feels better and wants to go home. Discharged home on Eliquis. Patient was advised to get the prescription filled before discharge. She will follow up with Dr. Vazquez in one week Consults/Reason for consult Cardiology Dr. Vazquez Operations or Procedures Thrombectomy left lower extremity Condition at Discharge: Fair Final Diagnosis/Problems List # Acute deep vein thrombosis (DVT) of left leg, heparin drip converted to Eliquis p.o. cardiology consult for Dr. 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 Diaz on 12/18/2024 repeat procedure by radiologist Dr. Morton showed patent bilateral iliac veins and patent IVC with a good forward flow, no stent was placed # S/P right knee arthroplasty # Hypercholesterolemia # Bronchial asthma without exacerbation # Hypertensive heart disease Discharge Disposition: Home Discharge Instruct/Medications Diet: Cardiac 2g Na,low cholest Activity: Light activity Follow Up/Referral: Follow up with the Cardiology Dr. Vazquez in one week Follow up with your primary Dr in two weeks Resume all previous home meds Medications: Eliquis Lipitor Transmitted to [facility] RN duncan was advised that the patient should fill Eliquis before dc Scheduled Apixaban Base (Eliquis), 5 MG PO BID Apixaban Base (Eliquis), 10 MG PO BID Apixaban Base (Eliquis), 5 MG PO BID Apixaban Base (Eliquis), 10 MG PO BID Apixaban Base (Eliquis), 5 MG PO BID Apixaban Base (Eliquis), 10 MG PO BID Aspirin (Aspir-Low), 81 MG PO DAILY, (Reported) Atorvastatin Calcium (Atorvastatin Calcium), 1 TAB PO DAILY, (Reported) Atorvastatin Calcium (Lipitor), 1 TAB PO QPM Citalopram Hydrobromide (Citalopram Hydrobromide), 1 TAB PO DAILY, (Reported) Docusate Sodium (Colace), 1 CAP PO BID, (Reported) Gabapentin (Gabapentin), 100 MG PO TID, (Reported) Lisinopril (Lisinopril), 1 TAB PO DAILY, (Reported) Meclizine Hcl (Meclizine Hcl), 25 MG PO DAILY, (Reported) Oxycodone W/ Acetaminophen (Percocet 5/325MG), 1 TAB PO QID, (Reported) Polyethylene Glycol 3350 (Miralax), 17 GM PO DAILY Discharge Statement: "Patient was advised to return to the ER or call 911 if any headaches, dizziness, shortness of breath, chest pain, abdominal pain, bleeding, fevers, or worsening of medical condition. Patient was counseled about treatment plan, medications, possible side effects, patientverbalized understanding. All questions were answered to the best of my ability. This discharge took greater then 30 minutes in planning, reviewing documentation, counseling the patient, and discussing with other team members." ASSESSMENT ASSESSMENT Hospital Course Improved Assessment # Acute deep vein thrombosis (DVT) of left leg, heparin drip converted to Eliquis p.o. cardiology consult for Dr. 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 Diaz on 12/18/2024 repeat procedure by radiologist Dr. Morton showed patent bilateral iliac veins and patent IVC with a good forward flow, no stent was placed # S/P right knee arthroplasty # Hypercholesterolemia # Bronchial asthma without exacerbation # Hypertensive heart disease Date of Service: Dec 24, 2024 Billing Provider: JULIA BELLO MD Common Visit Codes: 65330-UHQ/OBS DISCH DAY >30min JULIA BELLO MD Dec 24, 2024 08:27
[2024-12-24 09:00] VITALS: BP 123/70; PULSE 71; RESP 16; TEMP 97.9; O2SAT 96
[2024-12-24 11:13] VITALS: BP 123/70; PULSE 71; RESP 16; TEMP 36.6; O2SAT 96
== END 2024-12-24 12:00 | disposition home or self-care (01) | DRG 272 ==
LOC: ER 12:07 → OVERFLOW 19:24 → CENTRAL 22:06
PROVIDERS: ADMIT Family Medicine; ATTEND Family Medicine
PROC: 04CL3ZZ Extirpation of Matter from Left Femoral Artery, Percutaneous Approach (ICD-10-PCS; principal; 2024-12-15)
PROC: 04CD3ZZ Extirpation of Matter from Left Common Iliac Artery, Percutaneous Approach (ICD-10-PCS; 2024-12-15)
PROC: B54CZZ3 Ultrasonography of Left Lower Extremity Veins, Intravascular (ICD-10-PCS; 2024-12-15)
PROC: B51CYZZ Fluoroscopy of Left Lower Extremity Veins using Other Contrast (ICD-10-PCS; 2024-12-15)
PROC: 06H03DZ Insertion of Intraluminal Device into Inferior Vena Cava, Percutaneous Approach (ICD-10-PCS; 2024-12-21)
PROC: B51DYZZ Fluoroscopy of Bilateral Lower Extremity Veins using Other Contrast (ICD-10-PCS; 2024-12-21)
DX: I82.412 Acute embolism and thrombosis of left femoral vein (principal); I11.9 Hypertensive heart disease without heart failure; E78.00 Pure hypercholesterolemia, unspecified; E66.9 Obesity, unspecified; J45.909 Unspecified asthma, uncomplicated; I82.442 Acute embolism and thrombosis of left tibial vein; Z79.01 Long term (current) use of anticoagulants; Z79.82 Long term (current) use of aspirin; Z79.899 Other long term (current) drug therapy; Z96.651 Presence of right artificial knee joint; Z90.710 Acquired absence of both cervix and uterus
CPT/HCPCS: 34201; 36012; 36415; 37191; 37252; 71046; 71275; 72193; 76942; 77002; 80048; 80053; 84484; 85025; 85379; 85610; 85730; 86850; 86900; 86901; 93005; 93971; 97110; 97116; 97163; 97530; 99152; C1769; C1894; G0378; J2250; Q9967

== ENCOUNTER 2025-01-03 08:43 | Inpatient (IN) | payer MEDICARE, MEDICAID ==
[~2025-01-03] VITALS: Ht 154.9 cm; Wt 78.5 kg
[~2025-01-03 08:43] MED LIST changes: +ATOR-507 PO
--- NOTE | 2025-01-03 09:05 | ED.PDOC ---
History of Present Illness HPI Comments 69-YEAR-OLD FEMALE WHO IS MOHAWK-SPEAKING PRESENTS TO THE ER WITH PRIOR MEDICAL HISTORY OF EXTENSIVE DVT: SURGICAL HISTORY OF THROMBECTOMY ON 12/15/2024 AND THEN CHIEF COMPLAINT OF LLE. PATIENT REPORTS ON HAVING LUE PAIN/SWELLING AND NOTES THAT SHE IS CURRENTLY TAKING ELIQUIS. DENIES CHILLS, FEVER, N/V/D, SOB, CP. NO OTHER ASSOCIATED SYMPTOMS, MODIFIERS, RECENT INJURIES OR SICK CONTACTS PRESENT AT THIS TIME. Chief Complaint: Lower Extremity Time Seen by MD: 09:00 Primary Care Provider: LAW Reviewed Notes: Nurses Notes, Medications, Allergies Allergies: Coded Allergies: No Known Drug Allergy (Verified Allergy, Unknown, 07/26/23) Home Meds Active Scripts Atorvastatin Calcium (Lipitor) 40 Mg Tab, 1 TAB PO QPM, #90 TAB 1 Refill Prov:JULIA BELLO MD 12/24/24 Apixaban Base (ELIQUIS) 5 Mg Tab, 10 MG PO BID for 7 Days, #28 TAB 10MG BID X 7 DAYS THEN 5MG PO BID FOR AT LEAST 6 MONTHS FOR DVT/PE TREATMENT Prov:JULIA BELLO MD 12/24/24 Apixaban Base (ELIQUIS) 5 Mg Tab, 5 MG PO BID, #180 TAB Prov:JULIA BELLO MD 12/24/24 Apixaban Base (ELIQUIS) 5 Mg Tab, 10 MG PO BID for 7 Days, #14 TAB 10MG BID X 7 DAYS THEN 5MG PO BID FOR AT LEAST 6 MONTHS FOR DVT/PE TREATMENT Prov:SACHA PARSONS 10/29/24 Apixaban Base (ELIQUIS) 5 Mg Tab, 5 MG PO BID for 90 Days, #180 TAB 3 Refills Prov:SACHA PARSONS 10/29/24 Polyethylene Glycol 3350 (Miralax) 17 Gm Pow, 17 GM PO DAILY for 7 Days, #450 POW Prov:SACHA PARSONS 10/29/24 Apixaban Base (ELIQUIS) 5 Mg Tab, 10 MG PO BID for 7 Days, #14 TAB 10MG BID X 7 DAYS THEN 5MG PO BID FOR AT LEAST 6 MONTHS FOR DVT/PE TREATMENT Prov:SACHA PARSONS 10/29/24 Apixaban Base (ELIQUIS) 5 Mg Tab, 5 MG PO BID for 60 Days, #120 TAB Prov:SACHA PARSONS RESIDENT 10/29/24 Reported Medications Meclizine Hcl (Meclizine Hcl) 25 Mg Tab, 25 MG PO DAILY for 30 Days, MG 10/28/24 Aspirin (Aspir-Low) 81 Mg Tab, 81 MG PO DAILY for 30 Days, MG 10/28/24 Docusate Sodium (Colace) 100 Mg Cap, 1 CAP PO BID, #30 CAP 10/28/24 Gabapentin (Gabapentin) 100 Mg Cap, 100 MG PO TID 10/28/24 Oxycodone W/ Acetaminophen (Percocet 5/325MG) 1 Tab Tb, 1 TAB PO QID, #120 TAB 10/28/24 Citalopram Hydrobromide (Citalopram Hydrobromide) 10 Mg Tab, 1 TAB PO DAILY 10/27/24 Lisinopril (Lisinopril) 20 Mg Tab, 1 TAB PO DAILY 10/27/24 Atorvastatin Calcium (ATORVASTATIN CALCIUM) 80 Mg Tab, 1 TAB PO DAILY 10/27/24 Information Source: Patient Mode of Arrival: Ambulatory Severity: Moderate Timing: Hours Duration: Since onset, Hours Prehospital treatment: None Past Medical History PAST MEDICAL HISTORY: Denies Past Medical History (Other): DVTS WITH LEFT LOWER EXTREMITY Surgical History (Other): THROMBECTOMY TO THE LEFT LOWER EXTREMITY ON 12/15/2024 POCKET CREASER History: Denies all POCKET CREASER Hx Family History Family History: Reviewed,noncontributory to illness, Unknown Social History Smoker: Non-Smoker Alcohol: Denies ETOH Use Drugs: Denies Drug Use Lives In: Home Constitutional: reports: others (LEFT LOWER EXTREMITY PAIN/SWELLING); denies: chills, diaphoresis, fatigue, fever, malaise, sweats, weakness EENTM: denies: blurred vision, double vision, ear bleeding, ear discharge, ear drainage, ear pain, ear ringing, eye pain, eye redness, hearing loss, mouth pain, mouth swelling, nasal discharge, nose bleeding, nose congestion, nose pain, photophobia, tearing, throat pain, throat swelling, voice changes, others Respiratory: denies: cough, hemoptysis, orthopnea, SOB at rest, shortness of breath, SOB with excertion, stridor, wheezing, others Cardiovascular: denies: chest pain, dizzy spells, diaphoresis, Dyspnea on exertion, edema, irregular heart beat, left arm pain, lightheadedness, palpitations, PND, syncope, others Gastrointestinal: denies: abdomen distended, abdominal pain, blood streaked bowels, constipated, diarrhea, dysphagia, difficulty swallowing, hematemesis, melena, nausea, poor appetite, poor fluid intake, rectal bleeding, rectal pain, vomiting, others Genitourinary: denies: abnormal vagina bleeding, burning, dyspareunia, dysuria, flank pain, frequency, hematuria, incontinence, pain, , vagina discharge, urgency, others Neurological: denies: dizziness, fainting, headache, left sided numbness, left sided weakness, numbness, paresthesia, pre-existing deficit, right sided numbness, right sided weakness, seizure, speech problems, tingling, tremors, weakness, others Musculoskeletal: denies: back pain, gout, joint pain, joint swelling, muscle pain, muscle stiffness, neck pain, others Integumetry: denies: bruises, change in color, change in hair/nails, dryness, laceration, lesions, lumps, rash, wounds, others Allergic/Immunocompromised: denies: Difficulty Healing, Frequent Infections, Hives, Itching, others Hematologic/Lymphatic: denies: anemia, blood clots, easy bleeding, easy bruising, swollen glands, others Endocrine: denies: excessive hunger, excessive sweating, excessive thirst, excessive urination, flushing, intolerance to cold, intolerance to heat, unexplained weight gain, unexplained weight loss, others Psychiatric: denies: anxiety, bipolar disorder, depression, hopeless, panic disorder, schizophrenia, sleepless, suicidal, others All Other Systems: Reviewed and Negative Physical Exam General Appearance: No Apparent Distress, Normal HEENT: Normal ENT Inspection, Pharynx Normal, TMs Normal Neck: Full Range of Motion, Non-Tender, Normal, Normal Inspection Respiratory: Chest Non-Tender, Lungs Clear, No Accessory Muscle Use, No Respiratory Distress, Normal Breath Sounds Cardiovascular: No Edema, No JVD, No Murmur, No Gallop, Normal Peripheral Pulses, Regular Rate/Rhythm Breast Exam: Deferred Gastrointestinal: No Organomegaly, Non Tender, No Pulsatile Mass, Normal Bowel Sounds, Soft Genitalia: Deferred Pelvic: Deferred Rectal: Deferred Extremities: No calf tenderness, Normal capillary refill, Normal inspection, Normal range of motion, Non-tender, No pedal edema Musculoskeletal : Apperance: Normal Neurologic: Alert, trade manager II-XII nml as Tested, No Motor Deficits, Normal Affect, Normal Mood, No Sensory Deficits Cerebellar Function: Normal Reflexes: Normal Skin: Dry, Normal Color, Warm Lymphatic: No Adenopathy Was a procedure done? Was a procedure done?: No Differential Dx Considerations may include: dvt X-Ray, Labs, Meds, VS Vital Signs Date Time Temp Pulse Resp B/P (MAP) Pulse Ox O2 Delivery O2 Flow Rate FiO2 01/03/25 08:46 97.8 78 20 132/69 95 97.8 Lab Test 01/03/25 09:11 Range/Units White Blood Count 5.9 4.4-10.8 10^3/uL Red Blood Count 4.64 4.0-5.20 10^6/uL Hemoglobin 12.0 L 12.2-16.2 g/dL Hematocrit 36.7 36.0-46.0 % Mean Corpuscular Volume 79.2 L 80.0-100.0 fL Mean Corpuscular Hemoglobin 25.8 L 28.0-32.0 pg Mean Corpuscular Hemoglobin Concent 32.6 32.0-36.0 g/dL Red Cell Distribution Width 16.4 H 11.8-14.3 % Platelet Count 428 140-450 10^3/uL Mean Platelet Volume 7.5 6.9-10.8 fL Neutrophils (%) (Auto) 57.0 37.0-80.0 % Lymphocytes (%) (Auto) 28.4 10.0-50.0 % Monocytes (%) (Auto) 8.3 0.0-12.0 % Eosinophils (%) (Auto) 5.1 0.0-7.0 % Basophils (%) (Auto) 1.2 0.0-2.0 % Neutrophils # (Auto) 3.4 1.6-8.6 10 ^3/uL Lymphocytes # (Auto) 1.7 0.4-5.4 10 ^3/uL Monocytes # (Auto) 0.5 0-1.3 10 ^3/uL Eosinophils # (Auto) 0.3 0-0.8 10 ^3/uL Basophils # (Auto) 0.1 0-0.2 10 ^3/uL Nucleated Red Blood Cells 0.1 % Prothrombin Time 11.9 H 9.3-11.8 sec Prothrombin Time INR 1.14 0.9-1.15 Activated Partial Thromboplast Time 30.0 24.5-34.5 SEC D-Dimer, Quantitative 3.87 H 0.0-0.49 mg/L FEU Sodium Level 142 136-145 mmol/L Potassium Level 3.9 3.5-5.1 mmol/L Chloride Level 105 98-107 mmol/L Carbon Dioxide Level 26 20-31 mmol/L Anion Gap 11 5-15 Blood Urea Nitrogen 12 9-23 mg/dL Creatinine 0.70 0.550-1.02 mg/dL Glomerular Filtration Rate Calc 92 >90 mL/min BUN/Creatinine Ratio 17.1 10.0-20.0 Serum Glucose 113 H 74-106 mg/dL Calcium Level 9.6 8.7-10.4 mg/dL Time of 1ST Reevaluation: 09:30 Reevaluation 1ST: Unchanged Patient Education/Counseling: Diagnosis, Treatment, Prognosis Family Education/Counseling: No Family Present SEPSIS Sepsis Screen Date sepsis recognized/suspect: Jan 03, 2025 Time Sepsis recognized/suspect: 08 Recent Procedure: No On Antibiotic Therapy: No Respiratory Rate >20: No Heart Rate >90: No Temp<36 C (96.8 F) or >38.3 C: No SBP <90 or MAP <65 mmHG: No New Acute Mental Status Change: No Is the patient on CPAP, BIPAP,: No Physician Orders Lt Lower Dvt (01/03/25 09:02) * Radiologist Consult (01/03/25 09:55) Vital Signs Date Time Temp Pulse Resp B/P (MAP) Pulse Ox O2 Delivery O2 Flow Rate FiO2 01/03/25 08:46 97.8 78 20 132/69 95 97.8 Laboratory Tests Test 01/03/25 09:11 White Blood Count 5.9 10^3/uL (4.4-10.8) Departure 1 Departure Time of Disposition: 12:30 (Patient likely with a reoccurrence of DVT. We will admit patient for further workup and expert consultation) Impression: Primary Impression: Left leg DVT Qualified Codes: I82.432 - Acute embolism and thrombosis of left popliteal vein Disposition: ADMITTED INPATIENT Admit to: Med Surg Condition: Serious Critical Care Note Critical Care Time?: No Stability Stability form required: No I personally scribed for AMBER PARIKH MD ([email or web address]) on 01/03/25 at 09:05. Electronically submitted by Bernard Magana ([email or web address]). AMBER PARIKH MD Jan 03, 2025 09:05
[2025-01-03 09:27] LABS: Hemoglobin 12.0 g/dL (12.2-16.2); Nucleated Red Blood Cells % 0.1 %
[2025-01-03 09:29] LABS: Hematocrit 36.7 % (36.0-46.0); Mean Corpuscular Hemoglobin 25.8 pg (28.0-32.0); Mean Corpuscular Volume 79.2 fL (80.0-100.0)
[2025-01-03 09:35] LABS: Chloride 105 mmol/L (98-107); Potassium 3.9 mmol/L (3.5-5.1); Sodium 142 mmol/L (136-145)
[2025-01-03 09:36] LABS: Anion Gap 11 (5-15); Carbon Dioxide 26 mmol/L (20-31)
[2025-01-03 09:37] LABS: Calcium 9.6 mg/dL (8.7-10.4)
[2025-01-03 09:42] LABS: BUN/Creatinine Ratio 17.1 (10.0-20.0); Blood Urea Nitrogen 12 mg/dL (9-23)
[2025-01-03 09:43] LABS: Glucose 113 mg/dL (74-106)
[2025-01-03 09:45] LABS: INR 1.14 (0.9-1.15); Partial Thromboplastin Time 30.0 SEC (24.5-34.5); Prothrombin Time 11.9 sec (9.3-11.8)
--- NOTE | 2025-01-03 10:08 | DVH ---
Left lower extremity venous duplex Clinical History: left leg pain and swelling Comparison: XY PERCU.VENOUS THROMBECTOMY on DOS: 12/15/24, US LT LOWER DVT on DOS: 12/13/24, US LT LOWER DVT on DOS: 10/27/24 Technique: Duplex Doppler evaluation of the deep venous system of the left lower extremity from the common femor al vein to the popliteal vein including color Doppler and spectral/pulsed waveform analysis was perfo rmed. Findings: The common femoral vein demonstrates appropriate compressibility and waveform variability. There is compressibility/patency of the great saphenous vein at the proximal thigh. The deep femoral vein demonstrates appropriate compressibility and waveform variability. The popliteal vein demonstrates nearly occlusive thrombus with markedly diminished compressibility. Partially occlusive thrombus is present in the proximal superficial femoral vein with reduced danielle sibility. There is normal compressibility at the tibioperoneal trunk. Impression: Nearly occlusive thrombus in the left popliteal vein. Partially occlusive thrombus in the proximal left superficial femoral vein.
[2025-01-03 14:04] VITALS: PULSE 63; RESP 16; O2SAT 96
--- NOTE | 2025-01-03 15:39 | DVHHPRES ---
History of Present Illness Resident Creating Document: ABBIE BARRIENTOS History of Present Illness Patient is a Citizen Of [place]-speaking 69-year-old female with past medical history of hypertension, hyperlipidemia, anxiety and prior DVT presented to [facility] ED with complaint of lower extremity pain and swelling. She reports that the symptoms began following a right knee replacement surgery on October 23, 2024. Since the procedure, she has been wearing compression socks and noted progressive swelling in the lower extremities. She rates the pain as 7 out of 10 in severity. On December 15, 2024, she underwent a surgical thrombectomy of the left lower extremity. She denies chest pain, shortness of breath, recent trauma, or recent travel. She also denies a history of diabetes. The patient has been taking Eliquis since October. Left lower extremity venous duplex shows nearly occlusive thrombus in the left popliteal vein. Partially occlusive thrombus in the proximal left superficial femoral vein. Patient will be admitted for further evaluation and management. Cardiovascular: HTN, hyperipidemia Psych: Anxiety Past Medical History prior DVT Past Surgical History: Hysterectomy, Total knee replacement Past Surgical History Surgical thrombectomy to left lower extremity on 12/15/2024 Family History: CVA Smoke: No ALCOHOL: none Drugs: None Review of Systems Review of Systems Patient seen and examined at bedside. Patient is alert and oriented to time, place person and responding to all questions. Constitutional: Left lower extremity pain/swelling; No Chills, No diaphoresis, No fatigue, No fever, No malaise, No sweats, No weakness Eyes: No Pain, No Vision change, No Conjunctivae inflammation, No Eyelid inflammation, No Other, No Redness ENT: No Ear pain, No Ear discharge, No Nose pain, No Nose discharge, No Nose congestion, No Mouth pain, No Mouth swelling, No Throat pain, No Throat swelling, No Other Cardiovascular: No Chest Pain, No Palpitations, No Orthopnea, No Paroxysmal No Dyspnea, No Edema, No Lt Headedness, No Other Respiratory: No Cough, No Dry, No Shortness of breath, No SOB with exertion, No Wheezing, No Hemoptysis, No Pleuritic Pain, No Sputum, No Other Gastrointestinal: No Nausea, No Vomiting, No Abdominal Pain, No Diarrhea, No Constipation, No Melena, No Hematochezia, No Other Genitourinary: No Dysuria, No Frequency, No Incontinence, No Hematuria, No Retention, No Other Musculoskeletal: Left Leg pain. No other, No neck pain, No shoulder pain, No arm pain, No back pain, No hand pain, No foot pain Skin: No Rash, No Lesions, No Jaundice, No Bruising, No Other Allergies: Coded Allergies: No Known Drug Allergy (Verified Allergy, Unknown, 07/26/23) Medications Current Medications Medications Dose Ordered Sig/Azalia Route Start Time Stop Time Status Last Admin Dose Admin Enoxaparin Sodium 70 mg Q12HR SC 01/03/25 22:00 UNV Gabapentin 100 mg TID PO 01/03/25 22:00 UNV Lisinopril 20 mg DAILY PO 01/04/25 10:00 UNV Citalopram Hydrobromide 10 mg DAILY PO 01/04/25 10:00 UNV Atorvastatin Calcium 40 mg HS PO 01/03/25 22:00 UNV Exam Vital Signs Vital Signs Date Time Temp Pulse Resp B/P (MAP) Pulse Ox O2 Delivery O2 Flow Rate FiO2 01/03/25 14:04 63 16 96 Room Air* 0 21 01/03/25 14:00 144/70 (94) 01/03/25 12:51 97.7 97.7 Exam General Appearance: Cooperative. Well developed. Well nourished. NAD Head Exam: Normal inspection Neck Exam: Normal inspection. Non-tender. Normal alignment Pulmonary/Respiratory: Chest non-tender. Clear bilateral breath sounds, no crackles, no wheezing. Cardiovascular/Chest: Regular rate and rhythm. No murmurs. No JVD. Peripheral Pulses: 2+ Radial (R). 2+ Radial (L). 2+ Pedal (R). 2+ Pedal (L) Abdominal Exam: Normal bowel sounds. Soft. normal abdomen, no visible veins, Nontender. No hepatospenomegaly. No masses Ankle Exam: Negative ankle edema Lower extremities: Left lower extremity edema Neuro/Mental Status: A&O x4. Coherent. Thoughts/Psych: Normal thought pattern. Appropriate mood and affect. Good judgement and insight Skin Exam: Normal inspection. Normal color. Warm. Dry Labs/Xrays Labs Test 01/03/25 09:11 Range/Units White Blood Count 5.9 4.4-10.8 10^3/uL Red Blood Count 4.64 4.0-5.20 10^6/uL Hemoglobin 12.0 L 12.2-16.2 g/dL Hematocrit 36.7 36.0-46.0 % Mean Corpuscular Volume 79.2 L 80.0-100.0 fL Mean Corpuscular Hemoglobin 25.8 L 28.0-32.0 pg Mean Corpuscular Hemoglobin Concent 32.6 32.0-36.0 g/dL Red Cell Distribution Width 16.4 H 11.8-14.3 % Platelet Count 428 140-450 10^3/uL Mean Platelet Volume 7.5 6.9-10.8 fL Neutrophils (%) (Auto) 57.0 37.0-80.0 % Lymphocytes (%) (Auto) 28.4 10.0-50.0 % Monocytes (%) (Auto) 8.3 0.0-12.0 % Eosinophils (%) (Auto) 5.1 0.0-7.0 % Basophils (%) (Auto) 1.2 0.0-2.0 % Neutrophils # (Auto) 3.4 1.6-8.6 10 ^3/uL Lymphocytes # (Auto) 1.7 0.4-5.4 10 ^3/uL Monocytes # (Auto) 0.5 0-1.3 10 ^3/uL Eosinophils # (Auto) 0.3 0-0.8 10 ^3/uL Basophils # (Auto) 0.1 0-0.2 10 ^3/uL Nucleated Red Blood Cells 0.1 % Prothrombin Time 11.9 H 9.3-11.8 sec Prothrombin Time INR 1.14 0.9-1.15 Activated Partial Thromboplast Time 30.0 24.5-34.5 SEC D-Dimer, Quantitative 3.87 H 0.0-0.49 mg/L FEU Sodium Level 142 136-145 mmol/L Potassium Level 3.9 3.5-5.1 mmol/L Chloride Level 105 98-107 mmol/L Carbon Dioxide Level 26 20-31 mmol/L Anion Gap 11 5-15 Blood Urea Nitrogen 12 9-23 mg/dL Creatinine 0.70 0.550-1.02 mg/dL Glomerular Filtration Rate Calc 92 >90 mL/min BUN/Creatinine Ratio 17.1 10.0-20.0 Serum Glucose 113 H 74-106 mg/dL Calcium Level 9.6 8.7-10.4 mg/dL SEPSIS Sepsis Screen Date sepsis recognized/suspect: Jan 03, 2025 Time Sepsis recognized/suspect: 1413 Recent Procedure: No On Antibiotic Therapy: No Respiratory Rate >20: No Heart Rate >90: No Temp<36 C (96.8 F) or >38.3 C: No SBP <90 or MAP <65 mmHG: No New Acute Mental Status Change: No Is the patient on CPAP, BIPAP,: No Physician Orders Lt Lower Dvt (01/03/25 09:02) * Radiologist Consult (01/03/25 09:55) Admit (01/03/25 14:52) Stat Ekg For Chest Pain (01/03/25 14:52) Notify Md Of Changes From Base (01/03/25 14:52) Oxygen By Nasal Cannula (01/03/25 14:52) Troponin-I Hs (01/03/25 14:52) Electrocardigram (01/03/25 14:52) Lactic Acid W/ Reflex Order (01/03/25 14:52) Comprehensive Metabolic Panel (01/03/25 14:52) B-Type Natriuretic Peptide (01/03/25 14:52) Chest Xray 1 View (01/03/25 14:52) Enoxaparin Sodium (Lovenox) (01/03/25 15:00) Enoxaparin Sodium (Lovenox) (01/03/25 22:00) Gabapentin Capsule (Neurontin Capsule) (01/03/25 22:00) Lisinopril Tablet (Zestril Tablet) (01/04/25 10:00) Citalopram Tablet (Celexa Tablet) (01/04/25 10:00) Atorvastatin (Lipitor) (01/03/25 22:00) Consistent Carb(Ccho)Diabetes (01/03/25 Dinner) Complete Blood Count (01/04/25 04:00) Basic Metabolic Panel (01/04/25 04:00) Vital Signs Date Time Temp Pulse Resp B/P (MAP) Pulse Ox O2 Delivery O2 Flow Rate FiO2 01/03/25 14:04 63 16 96 Room Air* 0 21 01/03/25 14:00 67 12 144/70 (94) 97 01/03/25 12:51 97.7 73 16 124/85 (98) 99 97.7 01/03/25 08:46 97.8 78 20 132/69 95 97.8 Laboratory Tests Test 01/03/25 09:11 White Blood Count 5.9 10^3/uL (4.4-10.8) Assessment/Plan Assessment/Plan Left leg DVT Recurrent thrombosis of left femoral/popliteal vein History of recent thrombectomy to the left lower extremity -Left lower extremity venous duplex: Nearly occlusive thrombus in the left popliteal vein. Partially occlusive thrombus in the proximal left superficial femoral vein -Lovenox therapy -Echocardiogram -chest x-ray -gabapentin 100 mg Essential hypertension -lisinopril 20mg Mixed dyslipidemia -atorvastatin 40 mg Anxiety -citalopram 10mg Plan discussed with: Patient Date of Service: Jan 03, 2025 Billing Provider: THERESE JAY MD Common Visit Codes: [id number] INP/OBS CARE(HIGH) Secondary Visit Codes: [id number] CARE PLAN 30 MINUTES ABBIE BARRIENTOS RESIDENT Jan 03, 2025 15:39 THERESE JAY MD Jan 06, 2025 00:33
--- NOTE | 2025-01-03 15:49 | DVH ---
CHEST RADIOGRAPH Indication: sob Technique: Single frontal view of the chest was obtained COMPARISON: CT CT ANGIO CHEST CONTRAST on DOS: 12/13/24, XY CHEST TWO VIEWS ROUTINE on DOS: 12/13/24, CT CT ANGIO CHEST CONTRAST on DOS: 10/27/24, XY CHEST TWO VIEWS ROUTINE on DOS: 07/26/23 FINDINGS: Lines and Tubes: None Lungs: Clear Pleura: No effusion. No pneumothorax. Cardiomediastinal contours: Unremarkable Bones: Unremarkable IMPRESSION: No acute disease.
[2025-01-03] MEDS: ENOXAPARIN SOD 100 MG/1 ML SYRINGE SC ONE (15:51)
[2025-01-03 16:14] LABS: Alanine Aminotransferase 23 U/L (7-40); Alkaline Phosphatase 70 U/L (46-116); Anion Gap 10 (5-15); BUN/Creatinine Ratio 17.7 (10.0-20.0); Blood Urea Nitrogen 11 mg/dL (9-23); Calcium 9.4 mg/dL (8.7-10.4); Carbon Dioxide 27 mmol/L (20-31); Chloride 104 mmol/L (98-107); Glucose 91 mg/dL (74-106); Potassium 4.0 mmol/L (3.5-5.1); Sodium 141 mmol/L (136-145); Total Protein 7.2 g/dL (5.7-8.2)
[2025-01-03 16:15] LABS: Albumin 4.2 g/dL (3.2-4.8); Bilirubin, Total 0.6 mg/dL (0.2-1.0)
[2025-01-03 16:50] VITALS: BP 126/72; PULSE 67; RESP 18; TEMP 98.2; O2SAT 98
[2025-01-03 17:00] VITALS: BP 126/72; PULSE 61; RESP 17; TEMP 98.2; O2SAT 98
[2025-01-03 21:00] VITALS: BP 126/70; PULSE 60; RESP 18; TEMP 98.3; O2SAT 96
[2025-01-03] MEDS: GABAPENTIN 100 MG CAP PO SCH (22:54)
[2025-01-03] MEDS: ATORVASTATIN 20 MG TAB PO SCH (22:54)
[2025-01-03] MEDS: ENOXAPARIN SOD 100 MG/1 ML SYRINGE SC SCH (22:57)
[2025-01-04] VITALS (7 sets, daily range): BP systolic 112–147; BP diastolic 63–86; PULSE 55–67; RESP 16–20; TEMP 97.1–98.3; O2SAT 94–100
[2025-01-04 07:12] LABS: Hematocrit 34.5 % (36.0-46.0); Hemoglobin 11.3 g/dL (12.2-16.2); Mean Corpuscular Hemoglobin 25.8 pg (28.0-32.0); Mean Corpuscular Volume 78.7 fL (80.0-100.0); Nucleated Red Blood Cells % 0.1 %
[2025-01-04 07:24] LABS: Anion Gap 11 (5-15)
[2025-01-04 07:25] LABS: Calcium 9.1 mg/dL (8.7-10.4)
[2025-01-04 07:30] LABS: BUN/Creatinine Ratio 20.3 (10.0-20.0); Blood Urea Nitrogen 12 mg/dL (9-23); Carbon Dioxide 23 mmol/L (20-31); Chloride 106 mmol/L (98-107); Glucose 88 mg/dL (74-106); Potassium 3.7 mmol/L (3.5-5.1); Sodium 140 mmol/L (136-145)
[2025-01-04] MEDS: CITALOPRAM HYDROBR 20 MG TAB PO SCH (10:11)
[2025-01-04] MEDS: LISINOPRIL 20 MG TAB PO SCH (10:12)
--- NOTE | 2025-01-04 13:43 | DVH ---
LEFT Lower Extremity Arterial Duplex Date: 01/04/2025 11:10 AM Clinical History: leg pain, decreased pulses Comparison: US LT LOWER DVT on DOS: 01/03/25, US LT LOWER DVT on DOS: 12/13/24, US LT LOWER DVT on DOS: 10/27/24 Technique: Duplex Doppler evaluation including color Doppler and spectral/pulsed waveform analysis of the left l ower extremity arteries was performed. Finding: LEFT: Peak systolic velocities are as follows: [employer] 78 cm/s Deep femoral 99 cm/s SFA proximal 86 cm/s SFA mid-portion 106 cm/s SFA distal 124 cm/s Popliteal 74 cm/s Posterior tibial 86 cm/s Dorsalis pedis 38 cm/s The waveforms are within normal limits. REFERENCE VALUES, [facility]) vascular Imaging Lab Criteria: Peak systolic velocity ranges (in cm/sec) are as follows: <150 cm/s - <20 % stenosis 150-200 cm/s - 20-49% stenosis 200-300 cm/s - 50-75% stenosis >300 cm/s -> 75% stenosis IMPRESSION: There is no evidence for peripheral vascular insufficiency in the left lower extremity. No significant focal stenosis is identified.
--- NOTE | 2025-01-04 15:32 | DVHPNRES ---
Progress Note Date Seen: Jan 04, 2025 Resident Creating Document: ABBIE BARRIENTOS Medical Necessity Reason Pt with a Central, PICC or Fol: No Subjective Review of Systems Patient is a [place]-speaking 69-year-old female with past medical history of hypertension, hyperlipidemia, anxiety and prior DVT presented to [facility] ED with complaint of lower extremity pain and swelling. She reports that the symptoms began following a right knee replacement surgery on October 23, 2024. Since the procedure, she has been wearing compression socks and noted progressive swelling in the lower extremities. She rates the pain as 7 out of 10 in severity. On December 15, 2024, she underwent a surgical thrombectomy of the left lower extremity. She denies chest pain, shortness of breath, recent trauma, or recent travel. She also denies a history of diabetes. The patient has been taking Eliquis since October. Left lower extremity venous duplex shows nearly occlusive thrombus in the left popliteal vein. Partially occlusive thrombus in the proximal left superficial femoral vein. Patient will be admitted for further evaluation and management. Past medical history: HTN, hyperipidemia, Anxiety, prior DVT Past Surgical History: Hysterectomy, Total knee replacement, Surgical thrombectomy to left lower extremity on 12/15/2024 Social & Personal history: Smoke: No. ALCOHOL: none. Drugs: None Allergies: Coded Allergies: No Known Drug Allergy (Verified Allergy, Unknown, 07/26/23) Patient seen and examined at bedside. Patient is alert and oriented to time, place person and responding to all questions. Constitutional: Left lower extremity pain/swelling; No Chills, No diaphoresis, No fatigue, No fever, No malaise, No sweats, No weakness Eyes: No Pain, No Vision change, No Conjunctivae inflammation, No Eyelid inflammation, No Other, No Redness ENT: No Ear pain, No Ear discharge, No Nose pain, No Nose discharge, No Nose congestion, No Mouth pain, No Mouth swelling, No Throat pain, No Throat swelling, No Other Cardiovascular: No Chest Pain, No Palpitations, No Orthopnea, No Paroxysmal No Dyspnea, No Edema, No Lt Headedness, No Other Respiratory: No Cough, No Dry, No Shortness of breath, No SOB with exertion, No Wheezing, No Hemoptysis, No Pleuritic Pain, No Sputum, No Other Gastrointestinal: No Nausea, No Vomiting, No Abdominal Pain, No Diarrhea, No Constipation, No Melena, No Hematochezia, No Other Genitourinary: No Dysuria, No Frequency, No Incontinence, No Hematuria, No Retention, No Other Musculoskeletal: Left Leg pain. No other, No neck pain, No shoulder pain, No arm pain, No back pain, No hand pain, No foot pain Skin: No Rash, No Lesions, No Jaundice, No Bruising, No Other Objective vital signs Vital Sign Date Time Temp Pulse Resp B/P (MAP) Pulse Ox O2 Delivery O2 Flow Rate FiO2 01/04/25 13:04 98.1 62 20 125/86 (99) 94 98.1 01/03/25 20:00 Room Air* 0 21 Total Intake and Output 01/03/25 01/03/25 01/04/25 15:00 23:00 07:00 Intake Total 450 ml Balance 450 ml medications Current Medications Medications Dose Ordered Sig/Azalia Route Start Time Stop Time Status Last Admin Dose Admin Enoxaparin Sodium 70 mg Q12HR SC 01/03/25 22:00 01/04/25 10:11 70 MG Gabapentin 100 mg TID PO 01/03/25 22:00 01/04/25 14:28 100 MG Lisinopril 20 mg DAILY PO 01/04/25 10:00 01/04/25 10:12 20 MG Citalopram Hydrobromide 10 mg DAILY PO 01/04/25 10:00 01/04/25 10:11 10 MG Atorvastatin Calcium 40 mg HS PO 01/03/25 22:00 01/03/25 22:54 40 MG Examination General Appearance: Cooperative. Well developed. Well nourished. NAD Head Exam: Normal inspection Neck Exam: Normal inspection. Non-tender. Normal alignment Pulmonary/Respiratory: Chest non-tender. Clear bilateral breath sounds, no crackles, no wheezing. Cardiovascular/Chest: Regular rate and rhythm. No murmurs. No JVD. Peripheral Pulses: 2+ Radial (R). 2+ Radial (L). 2+ Pedal (R). 2+ Pedal (L) Abdominal Exam: Normal bowel sounds. Soft. normal abdomen, no visible veins, Nontender. No hepatospenomegaly. No masses Ankle Exam: Negative ankle edema Lower extremities: Left lower extremity edema Neuro/Mental Status: A&O x4. Coherent. Thoughts/Psych: Normal thought pattern. Appropriate mood and affect. Good judgement and insight Skin Exam: Normal inspection. Normal color. Warm. Dry laboratory and microbiology Laboratory Tests 01/04/25 04:56 Test 01/04/25 04:56 Range/Units Serum Glucose 88 74-106 mg/dL Labs and/or images reviewed: Labs reviewed by me, Image(s) reviewed by me Problem List/Assessment/Plan Problem List/Assessment/Plan Left leg DVT Recurrent thrombosis of left femoral/popliteal vein History of recent thrombectomy to the left lower extremity -LEFT Lower Extremity Arterial Duplex: There is no evidence for peripheral vascular insufficiency in the left lower extremity. No significant focal stenosis is identified. -Left lower extremity venous duplex: Nearly occlusive thrombus in the left popliteal vein. Partially occlusive thrombus in the proximal left superficial femoral vein -Lovenox therapy -Echocardiogram -chest x-ray -gabapentin 100 mg Essential hypertension -lisinopril 20mg Mixed dyslipidemia -atorvastatin 40 mg Anxiety -citalopram 10mg PUD prophylaxis: protonix 40mg DVT prophylaxis: Levonox 40mg Goals of care: Full code, discussed for >16 minutes on 01/04/25 Plan discussed with patient Plan discussed with Dr. Vázquez Plan discussed with: Patient Date of Service: Jan 04, 2025 Billing Provider: THERESE VÁZQUEZ MD Common Visit Codes: [id number] INP/OBS CARE(HIGH) ABBIE BARRIENTOS RESIDENT Jan 04, 2025 15:32 THERESE VÁZQUEZ MD Jan 06, 2025 00:34
[2025-01-05 01:00] VITALS: BP 113/81; PULSE 62; RESP 18; TEMP 97.8; O2SAT 95
[2025-01-05 05:00] VITALS: BP 120/73; PULSE 64; RESP 18; TEMP 97.9; O2SAT 97
[2025-01-05 06:18] LABS: Hematocrit 36.7 % (36.0-46.0); Hemoglobin 11.8 g/dL (12.2-16.2); Mean Corpuscular Hemoglobin 25.4 pg (28.0-32.0); Mean Corpuscular Volume 78.8 fL (80.0-100.0); Nucleated Red Blood Cells % 0.2 %
[2025-01-05 06:29] LABS: Calcium 9.2 mg/dL (8.7-10.4); Potassium 3.9 mmol/L (3.5-5.1); Sodium 142 mmol/L (136-145)
[2025-01-05 06:30] LABS: Anion Gap 10 (5-15); Carbon Dioxide 25 mmol/L (20-31); Chloride 107 mmol/L (98-107)
[2025-01-05 06:35] LABS: BUN/Creatinine Ratio 20.0 (10.0-20.0); Blood Urea Nitrogen 12 mg/dL (9-23); Glucose 95 mg/dL (74-106)
[2025-01-05 08:00] VITALS: RESP 20; O2SAT 95
[2025-01-05 09:00] VITALS: BP 149/76; PULSE 84; RESP 20; TEMP 98.3; O2SAT 95
[2025-01-05] MEDS ORDERED: ENOX80IN8 SC (12:50)
[2025-01-05 13:00] VITALS: BP 116/69; PULSE 56; RESP 20; TEMP 98.3; O2SAT 95
--- NOTE | 2025-01-05 13:39 | DVHDSRES ---
Discharge Summary Date of Admission Resident Creating Document: ABBIE BARRIENTOS RESIDENT Jan 03, 2025 at 14:52 Date of Discharge: Jan 05, 2025 Admitting Diagnosis Lower extremity pain and swelling Labs/Diagnostic Data: Laboratory Results Test 01/05/25 05:30 01/03/25 15:51 01/03/25 09:11 White Blood Count 5.8 10^3/uL (4.4-10.8) Red Blood Count 4.66 10^6/uL (4.0-5.20) Hemoglobin 11.8 g/dL (12.2-16.2) Hematocrit 36.7 % (36.0-46.0) Mean Corpuscular Volume 78.8 fL (80.0-100.0) Mean Corpuscular Hemoglobin 25.4 pg (28.0-32.0) Mean Corpuscular Hemoglobin Concent 32.3 g/dL (32.0-36.0) Red Cell Distribution Width 16.8 % (11.8-14.3) Platelet Count 398 10^3/uL (140-450) Mean Platelet Volume 7.8 fL (6.9-10.8) Neutrophils (%) (Auto) 46.1 % (37.0-80.0) Lymphocytes (%) (Auto) 39.4 % (10.0-50.0) Monocytes (%) (Auto) 9.1 % (0.0-12.0) Eosinophils (%) (Auto) 4.6 % (0.0-7.0) Basophils (%) (Auto) 0.8 % (0.0-2.0) Neutrophils # (Auto) 2.7 10 ^3/uL (1.6-8.6) Lymphocytes # (Auto) 2.3 10 ^3/uL (0.4-5.4) Monocytes # (Auto) 0.5 10 ^3/uL (0-1.3) Eosinophils # (Auto) 0.3 10 ^3/uL (0-0.8) Basophils # (Auto) 0 10 ^3/uL (0-0.2) Nucleated Red Blood Cells 0.2 % Sodium Level 142 mmol/L (136-145) Potassium Level 3.9 mmol/L (3.5-5.1) Chloride Level 107 mmol/L (98-107) Carbon Dioxide Level 25 mmol/L (20-31) Anion Gap 10 (5-15) Blood Urea Nitrogen 12 mg/dL (9-23) Creatinine 0.60 mg/dL (0.550-1.02) Glomerular Filtration Rate Calc 95 mL/min (>90) BUN/Creatinine Ratio 20.0 (10.0-20.0) Serum Glucose 95 mg/dL (74-106) Calcium Level 9.2 mg/dL (8.7-10.4) Lactic Acid Level 0.7 mmol/L (0.4-2.0) Total Bilirubin 0.6 mg/dL (0.2-1.0) Aspartate Amino Transferase (AST) 19 U/L (13-40) Alanine Aminotransferase (ALT) 23 U/L (7-40) Alkaline Phosphatase 70 U/L (46-116) Troponin I High Sensitivity 4 ng/L (</=34) B-Type Natriuretic Peptide 41.13 pg/mL (0-100) Total Protein 7.2 g/dL (5.7-8.2) Albumin 4.2 g/dL (3.2-4.8) Prothrombin Time 11.9 sec (9.3-11.8) Prothrombin Time INR 1.14 (0.9-1.15) Activated Partial Thromboplast Time 30.0 SEC (24.5-34.5) D-Dimer, Quantitative 3.87 mg/L FEU (0.0-0.49) Other Laboratory Tests 01/05/25 05:30 Brief Hx & Hospital Course: The patient is a 70-year-old Cymra[place]-speaking female with a past medical history of hypertension, hyperlipidemia, anxiety, and prior DVT who presented to [facility] Emergency Department with complaints of progressive left lower extremity pain and swelling. Symptoms began following a right total knee replacement on October 23, 2024, during which she had been compliant with compression stockings and anticoagulation (Eliquis). She rated her pain as 7/10 in severity. On December 15, 2024, she underwent a surgical thrombectomy of the left lower extremity due to worsening symptoms. She denied chest pain, dyspnea, recent trauma, or travel. She has no history of diabetes and no known drug allergies. On admission, physical exam revealed left lower extremity edema without signs of systemic illness. A venous duplex ultrasound showed a nearly occlusive thrombus in the left popliteal vein and a partially occlusive thrombus in the proximal left superficial femoral vein. Arterial duplex showed no evidence of peripheral vascular insufficiency. The patient was admitted for further evaluation and management of recurrent DVT. She was started on Lovenox and scheduled for additional workup including echocardiogram and chest X-ray. Pain was managed with gabapentin 100 mg. Her chronic conditions were continued on home medications: lisinopril 20 mg for hypertension, atorvastatin 40 mg for dyslipidemia, and citalopram 10 mg for anxiety. LEFT Lower Extremity Arterial Duplex: There is no evidence for peripheral vascular insufficiency in the left lower extremity. No significant focal stenosis is identified. Left lower extremity venous duplex: Nearly occlusive thrombus in the left popliteal vein. Partially occlusive thrombus in the proximal left superficial femoral vein. On evaluation today, she states she is well, pain is manageable. Her vitals have remained stable for discharge home, follow up visit in discharge clinic. All medications and recommendations were thoroughly explained and the patient states she understands and agrees. Detailed discussion held with patient at bedside were all questions were answered and concerns were addressed. Physical examination on day of discharge: General Appearance: Cooperative. Well developed. Well nourished. NAD Head Exam: Normal inspection Neck Exam: Normal inspection. Non-tender. Normal alignment Pulmonary/Respiratory: Chest non-tender. Clear bilateral breath sounds, no crackles, no wheezing. Cardiovascular/Chest: Regular rate and rhythm. No murmurs. No JVD. Peripheral Pulses: 2+ Radial (R). 2+ Radial (L). 2+ Pedal (R). 2+ Pedal (L) Abdominal Exam: Normal bowel sounds. Soft. normal abdomen, no visible veins, Nontender. No hepatosplenomegaly. No masses Ankle Exam: Negative ankle edema Lower extremities: Left lower extremity edema Neuro/Mental Status: A&O x4. Coherent. Thoughts/Psych: Normal thought pattern. Appropriate mood and affect. Good judgement and insight Skin Exam: Normal inspection. Normal color. Warm. Dry Goals of care discussed with the patient for 20 minutes; full code Discussed with Dr. Rocha Operations or Procedures PATIENT: ZEE ORDOÑEZ ACCT: [id number] UNIT: [id number] : 1955 LOC: [facility] / BED: [facility] / AGE / SEX: 70 / F ADM STATUS: ADM IN SERVICE 1047 ORDERING PHYSICIAN: ALINA THOMPSON RESIDENT PROCEDURE(s): LLEAD - Lt Low Ext Art Duplex REASON: leg pain, decreased pulses ORDER NUMBER(s): [id number], ACCESSION NUMBER(s): [id number] LEFT Lower Extremity Arterial Duplex Date: 01/04/2025 11:10 AM Clinical History: leg pain, decreased pulses Comparison: US LT LOWER DVT on DOS: 01/03/25, US LT LOWER DVT on DOS: 12/13/24, US LT LOWER DVT on DOS: 10/27/24 Technique: Duplex Doppler evaluation including color Doppler and spectral/pulsed waveform analysis of the left lower extremity arteries was performed. Finding: LEFT: Peak systolic velocities are as follows: CENSUS ENUMERATOR 78 cm/s Deep femoral 99 cm/s SFA proximal 86 cm/s SFA mid-portion 106 cm/s SFA distal 124 cm/s Popliteal 74 cm/s Posterior tibial 86 cm/s Dorsalis pedis 38 cm/s The waveforms are within normal limits. REFERENCE VALUES, [facility]) vascular Imaging Lab Criteria: Peak systolic velocity ranges (in cm/sec) are as follows: <150 cm/s - <20 % stenosis 150-200 cm/s - 20-49% stenosis 200-300 cm/s - 50-75% stenosis >300 cm/s -> 75% stenosis IMPRESSION: There is no evidence for peripheral vascular insufficiency in the left lower extremity. No significant focal stenosis is identified. PATIENT: ZEE ORDOÑEZ ACCT: [id number] UNIT: [id number] : 1955 LOC: [facility]FL[facility] ROOM / BED: [address] [place] [address] / AGE / SEX: 69 / F ADM STATUS: ADM IN SERVICE 4312 ORDERING PHYSICIAN: MILTON ROOT RESIDENT PROCEDURE(s): CXR1 - CHEST XRAY 1 VIEW REASON: sob ORDER NUMBER(s): [id number], ACCESSION NUMBER(s): [id number] CHEST RADIOGRAPH Indication: sob Technique: Single frontal view of the chest was obtained COMPARISON: CT CT ANGIO CHEST CONTRAST on DOS: 12/13/24, XY CHEST TWO VIEWS ROUTINE on DOS: 12/13/24, CT CT ANGIO CHEST CONTRAST on DOS: 10/27/24, XY CHEST TWO VIEWS ROUTINE on DOS: 07/26/23 FINDINGS: Lines and Tubes: None Lungs: Clear Pleura: No effusion. No pneumothorax. Cardiomediastinal contours: Unremarkable Bones: Unremarkable IMPRESSION: No acute disease. PATIENT: ZEE ORDOÑEZ ACCT: [id number] UNIT: [id number] : 1955 LOC: ER ROOM / BED: / AGE / SEX: 69 / F ADM STATUS: REG ER SERVICE 1 ORDERING PHYSICIAN: AMBER PARIKH MD PROCEDURE(s): LLDVT - LT Lower DVT REASON: left leg pain and swelling ORDER NUMBER(s): [id number], ACCESSION NUMBER(s): [id number] Left lower extremity venous duplex Clinical History: left leg pain and swelling Comparison: XY PERCU.VENOUS THROMBECTOMY on DOS: 12/15/24, US LT LOWER DVT on DOS: 12/13/24, US LT LOWER DVT on DOS: 10/27/24 Technique: Duplex Doppler evaluation of the deep venous system of the left lower extremity from the common femoral vein to the popliteal vein including color Doppler and spectral/pulsed waveform analysis was performed. Findings: The common femoral vein demonstrates appropriate compressibility and waveform variability. There is compressibility/patency of the great saphenous vein at the proximal thigh. The deep femoral vein demonstrates appropriate compressibility and waveform variability. The popliteal vein demonstrates nearly occlusive thrombus with markedly diminished compressibility. Partially occlusive thrombus is present in the proximal superficial femoral vein with reduced compressibility. There is normal compressibility at the tibioperoneal trunk. Impression: Nearly occlusive thrombus in the left popliteal vein. Partially occlusive thrombus in the proximal left superficial femoral vein. Condition at Discharge: Stable Final Diagnosis/Problems List Left leg DVT thrombosis of left superficial femoral/popliteal vein History of recent thrombectomy to the left lower extremity hypertensive heart disease Mixed dyslipidemia Anxiety Discharge Disposition: Home Discharge Instruct/Medications Diet: Cardiac 2g Na,low cholest Activity: No Restrictions, As Tolerated Follow Up/Referral: Follow up in the d/c clinic in one week Follow up with the PCP as soon as possible for a referral to industrial laborer is recommended strictly as the patient had developed thrombosis while being on eliquis Medications: enoxaparin 80mg twice daily subcutaneous for 28 days STOP ELIQUIS continue aspirin 81mg daily , atorvastatin 40mg at night, lisinopril 20mg daily, gabapentin 100mg tid Scheduled Aspirin (Aspir-Low), 81 MG PO DAILY, (Reported) Atorvastatin Calcium (Lipitor), 1 TAB PO QPM Citalopram Hydrobromide (Citalopram Hydrobromide), 1 TAB PO DAILY, (Reported) Docusate Sodium (Colace), 1 CAP PO BID, (Reported) Enoxaparin Sodium (Enoxaparin Sodium), 80 MG SC BID Gabapentin (Gabapentin), 100 MG PO TID, (Reported) Lisinopril (Lisinopril), 1 TAB PO DAILY, (Reported) Meclizine Hcl (Meclizine Hcl), 25 MG PO DAILY, (Reported) Oxycodone W/ Acetaminophen (Percocet 5/325MG), 1 TAB PO QID, (Reported) Polyethylene Glycol 3350 (Miralax), 17 GM PO DAILY Discontinued Medications Apixaban Base (Eliquis), 5 MG PO BID Apixaban Base (Eliquis), 10 MG PO BID Apixaban Base (Eliquis), 5 MG PO BID Apixaban Base (Eliquis), 10 MG PO BID Apixaban Base (Eliquis), 5 MG PO BID Apixaban Base (Eliquis), 10 MG PO BID Atorvastatin Calcium (Atorvastatin Calcium), 1 TAB PO DAILY, (Reported) Discharge Statement: "Patient was advised to return to the ER or call 911 if any headaches, dizziness, shortness of breath, chest pain, abdominal pain, bleeding, fevers, or worsening of medical condition. Patient was counseled about treatment plan, medications, possible side effects, patientverbalized understanding. All questions were answered to the best of my ability. This discharge took greater then 30 minutes in planning, reviewing documentation, counseling the patient, and discussing with other team members." Date of Service: Jan 05, 2025 Billing Provider: EVERARDO ROCHA MD Common Visit Codes: 29343-IGEBSFO INP/OBS CARE (HIGH) Secondary Visit Codes: 74816-[id number] CARE PLAN 30 MINUTES Addendum Addendum Addendum I was physically present for the sadler portions of the service provided to patient by THE RESIDENT. I have reviewed the documentation, discussed the case with resident and agree with the resident's documentation except as noted. Also the patient's clinical case was discussed with the patient's nurse. This medical document was created using an electronic medical record system with computerized dictation system. Although this document has been carefully reviewed, there might still be some phonetic and typographical errors. These areas are purely typographical due to imperfections of the software programs, and do not reflect any compromise in the patient's medical care. Late signature. Date of Service: Jan 05, 2025 Billing Provider: EVERARDO ROCHA MD Common Visit Codes: 03531-YPI/OBS DISCH DAY >30min Secondary Visit Codes: 66246-[id number] CARE PLAN 30 MINUTES (20 minutes) ABBIE BARRIENTOS Jan 05, 2025 13:39 EVERARDO ROCHA MD Jan 07, 2025 12:09
--- NOTE | 2025-01-05 14:18 | DVHSR ---
APPROVED REPORT EXAM: Two-dimensional and M-mode echocardiogram with Doppler and color Doppler. Blood Pressure: 144/81 mmHg INDICATION SOB RISK FACTORS Height: 61, Weight: 173 DIMENSIONS LVDd4.3 (3.8-5.7cm)LA (2D)3.8 (1.9-4.0cm)Aortic Root3.5 (2.0-3.7cm) LVDs2.8 (2.5-4.0cm)LA (MM) (1.9-4.0cm)Aortic Cusp Exc1.9 (1.5-2.0cm) EF (%) 63.0 (55-70%)Rt. Atrium (1.9-4.0cm)Asc. Aorta cm Mitral Valve MitralMitral Stenosis E wave0.87m/sMV Mean GR.mmHg A wave1.05m/sMV Peak GR.93mmHg E/A ratio0.82D MVAcm2 DECEL [id number] 1/2 [id number] IVRTmsDop MVA2.88cm2 Aortic Valve Aortic ValveAortic Stenosis V11.03m/Orin Mean GR.4mmHg V21.25m/Orin Peak GR.6mmHg LVOT Diameter2.1 (1.8-2.4cm)Doppler AVA2.85cm2 Pulmonic Valve V20.92m/s Tricuspid Valve TR Velocity2.21m/s [id number] Conclusion MILD LVH AND MILD LV DIASTOLIC DYSFUNCTION NORMAL VALVES NO EFFUSION NORMAL RV FUNCTION
[2025-01-05 15:04] VITALS: BP 116/69; PULSE 56; RESP 20; TEMP 98.3; O2SAT 95
== END 2025-01-05 16:18 | disposition home or self-care (01) | DRG 301 ==
LOC: ER 08:43 → OVERFLOW 14:52 → WEST WING 16:50
PROVIDERS: ADMIT Internal Medicine; ATTEND Internal Medicine
DX: I82.432 Acute embolism and thrombosis of left popliteal vein (principal); E78.5 Hyperlipidemia, unspecified; I82.412 Acute embolism and thrombosis of left femoral vein; F41.9 Anxiety disorder, unspecified; I11.9 Hypertensive heart disease without heart failure; Z79.899 Other long term (current) drug therapy; Z79.82 Long term (current) use of aspirin
CPT/HCPCS: 36415; 71045; 80048; 80053; 83605; 83880; 84484; 85025; 85379; 85610; 85730; 93306; 93926; 93971; G0378